=== PATIENT | male | born 2000 | race Hispanic/Latino ===

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

== ENCOUNTER 2021-03-18 19:45 | Emergency (ER) | payer OTHER, SELFPAY ==
--- OUTSIDE RECORDS SUMMARY | 2021-03-18 19:47 | XMS REPORT | Continuity of Care Document ---
:[address] [facility] t Address [address] [place] [address] Care Team Providers Name Role Phone Maria Ines Rosen Attending Clinician Problems This patient has no known problems. Allergies, Adverse Reactions, Alerts This patient has no known allergies or adverse reactions. Medications This patient has no known medications. Procedures This patient has no known procedures. Encounters Start End Encounter Admission Attending Care Care Encounter Source Date/Time Date/Time Type Type Clinicians Facility Department ID 2020-12-07 2020-12-07 Office LIO Solomon [id number] 14:15:47 14:45:47 Visit [employer] [id number] [place] [id number] [place] [address] [phone] Primary & 204 Specialty Care Results This patient has no known results.
[2021-03-18 21:15] LABS: SARS-COV-2 RT PCR NEGATIVE (NEGATIVE)
--- NOTE | 2021-03-18 22:15 | ER ---
Nurse's Notes [facility] Name: Kushal Tan Age: 20 yrs Sex: Male : 2000 Arrival Date: 03/18/2021 Time: 19:50 Bed 24 Private MD: Diagnosis: Acute upper respiratory infection, unspecified Presentation: 03/18 19:53 Chief complaint: Patient states: Diarrhea, cough, sore throat, runny nose for the past vg1 two days. Coronavirus screen: Client denies travel out of the [place] in the last 14 days. Client presents with at least one sign or symptom that may indicate coronavirus-19. Standard/surgical mask placed on the client. Ebola Screen: Patient negative for fever greater than or equal to 101.5 degrees Fahrenheit, and additional compatible Ebola Virus Disease symptoms. Initial Sepsis Screen: Does the patient meet any 2 criteria? No. Patient's initial sepsis screen is negative. Does the patient have a suspected source of infection? No. Patient's initial sepsis screen is negative. Risk Assessment: Do you want to hurt yourself or someone else? Patient reports no desire to harm self or others. Onset of symptoms was March 16, 2021. 19:53 Method Of Arrival: Ambulatory vg1 19:53 Acuity: MELO 4 vg1 Triage Assessment: 19:55 General: Appears in no apparent distress. uncomfortable, Behavior is calm, cooperative. vg1 Pain: Complains of pain in generalized body aches Pain currently is 8 out of 10 on a pain scale. Historical: - Allergies: 19:55 No Known Allergies; vg1 - Home Meds: 19:55 None [Active]; vg1 - PMHx: 19:55 None; vg1 - PSHx: 19:55 Appendectomy; vg1 - Immunization history:: Adult Immunizations up to date. - Social history:: Smoking status: Patient denies any tobacco usage or history of. Screenin:00 Abuse screen: Denies threats or abuse. Denies injuries from another. Nutritional rr5 screening: No deficits noted. Tuberculosis screening: No symptoms or risk factors identified. Fall Risk None identified. Total Tejada Fall Scale indicates No Risk (0-24 pts). Assessment: 19:57 Reassessment: Pt treated in triage. vg1 21:00 General: Appears in no apparent distress. comfortable, Behavior is calm, cooperative, rr5 appropriate for age, no complaints awaiting for result. Pain: Denies pain. Neuro: Level of Consciousness is awake, alert, obeys commands, Oriented to person, place, time. Cardiovascular: Capillary refill < 3 seconds Patient's skin is warm and dry. Respiratory: Reports cough that is runny nose Airway is patent Respiratory effort is even, unlabored, Respiratory pattern is regular, symmetrical. GI: Reports diarrhea. : No signs and/or symptoms were reported regarding the genitourinary system. EENT: No signs and/or symptoms were reported regarding the EENT system. Derm: Skin is intact, is healthy with good turgor, Skin temperature is warm. Musculoskeletal: Capillary refill < 3 seconds. 22:20 Reassessment: Patient appears in no apparent distress at this time. Patient is alert, rr5 oriented x 3, equal unlabored respirations, skin warm/dry/pink. discharge instruction given and explained without complaints made. Vital Signs: 19:53 BP 122 / 83; Pulse 86; Resp 18; Temp 99.2; Pulse Ox 98% on R/A; Weight 115.67 kg; vg1 Height 5 ft. 8 in. (172.72 cm); Pain 8/10; 21:00 BP 121 / 75; Pulse 80; Resp 16; Pulse Ox 98% ; rr5 22:00 BP 115 / 89; Pulse 86; Resp 17; Pulse Ox 98% ; rr5 19:53 Body Mass Index 38.77 (115.67 kg, 172.72 cm) vg1 ED Course: 19:50 Patient arrived in ED. mr 19:51 [facility] kb 19:51 Kip Grier MD is Attending Physician. kb 19:54 Triage completed. vg1 19:55 Arm band placed on Patient placed in waiting room, Patient notified of wait time. vg1 20:00 COVID swab sent to lab. Flu and/or RSV swab sent to lab. Strep swab sent to lab. vg1 20:33 Mario Baker RN is Primary Nurse. rr5 21:00 Patient has correct armband on for positive identification. Bed in low position. rr5 22:21 No provider procedures requiring assistance completed. Patient did not have IV access rr5 during this emergency room visit. Administered Medications: No medications were administered Outcome: 22:15 Discharge ordered by . harjinder 22:21 Discharged to home ambulatory. rr5 22:21 Condition: stable 22:21 Discharge instructions given to patient, Instructed on discharge instructions, follow up and referral plans. Demonstrated understanding of instructions, follow-up care. 22:22 Patient left the ED. rr5 Signatures: Rafia Fishman, KRISTY MAY-Majo Howard Raymond RN RN rr5 Andra Chaparro RN RN vg1
--- NOTE | 2021-03-18 22:16 | EDPHYS ---
Physician Documentation [facility] Name: Kushal Tan Age: 20 yrs Sex: Male : 2000 Arrival Date: 03/18/2021 Time: 19:50 Bed 24 Private MD: ED Physician Kip Grier HPI: 03/18 23:25 This 20 yrs old Male presents to ER via Ambulatory with complaints of Flu kb Symptoms. 23:25 The patient or guardian reports cough, flu symptoms. Onset: The symptoms/episode kb began/occurred 2 day(s) ago. Severity of symptoms: At their worst the symptoms were mild, moderate, in the emergency department the symptoms are unchanged. Modifying factors: The symptoms are alleviated by nothing, the symptoms are aggravated by nothing. Associated signs and symptoms: Pertinent positives: diarrhea, rhinorrhea, sore throat. The patient has not experienced similar symptoms in the past. The patient has not recently seen a physician. Pt reports cough, rhinorrhea, diarrhea and sore throat for 2 days. Son diagnosed with the flu and spouse with a URI. Historical: - Allergies: 19:55 No Known Allergies; vg1 - Home Meds: 19:55 None [Active]; vg1 - PMHx: 19:55 None; vg1 - PSHx: 19:55 Appendectomy; vg1 - Immunization history:: Adult Immunizations up to date. - Social history:: Smoking status: Patient denies any tobacco usage or history of. ROS: 23:26 Constitutional: Negative for fever, chills, and weight loss. kb 23:26 ENT: Positive for rhinorrhea, sinus congestion, sore throat. 23:26 Respiratory: Positive for cough, Negative for dyspnea on exertion, hemoptysis, orthopnea, pleurisy, shortness of breath, sputum production, wheezing. 23:26 Abdomen/GI: Positive for diarrhea, Negative for abdominal pain, nausea and vomiting. 23:26 All other systems are negative. Exam: 23:24 Constitutional: This is a well developed, well nourished patient who is awake, alert, kb and in no acute distress. Head/Face: Normocephalic, atraumatic. ENT: Moist Mucous membranes Cardiovascular: Regular rate and rhythm with a normal S1 and S2. No gallops, murmurs, or rubs. No pulse deficits. Respiratory: Respirations even and unlabored. No increased work of breathing, no retractions or nasal flaring. Skin: Warm, dry with normal turgor. Normal color. MS/ Extremity: Pulses equal, no cyanosis. Neurovascular intact. Full, normal range of motion. Neuro: Awake and alert, GCS 15, oriented to person, place, time, and situation. Moves all extremities. Normal gait. Psych: Awake, alert, with orientation to person, place and time. Behavior, mood, and affect are within normal limits. 23:24 ENT: Posterior pharynx: is normal. Vital Signs: 19:53 BP 122 / 83; Pulse 86; Resp 18; Temp 99.2; Pulse Ox 98% on R/A; Weight 115.67 kg; vg1 Height 5 ft. 8 in. (172.72 cm); Pain 8/10; 21:00 BP 121 / 75; Pulse 80; Resp 16; Pulse Ox 98% ; rr5 22:00 BP 115 / 89; Pulse 86; Resp 17; Pulse Ox 98% ; rr5 19:53 Body Mass Index 38.77 (115.67 kg, 172.72 cm) vg1 MDM: 19:54 Patient medically screened. kb 23:24 Data reviewed: vital signs, nurses notes. Data interpreted: Pulse oximetry: on room air kb is 98 %. Interpretation: normal. Counseling: I had a detailed discussion with the patient and/or guardian regarding: the historical points, exam findings, and any diagnostic results supporting the discharge/admit diagnosis, lab results, the need for outpatient follow up, a family practitioner, to return to the emergency department if symptoms worsen or persist or if there are any questions or concerns that arise at home. 03/18 19:54 Order name: Strep; Complete Time: 22:14 kb 03/18 21:15 Order name: COVID-19/FLU A+B; Complete Time: 21:19 EDMS 03/18 22:13 Order name: Throat Culture EDMS Administered Medications: No medications were administered Disposition: 03/19 04:14 Co-signature as Attending Physician, Kip Grier MD. mh7 Disposition: 03/18/21 22:15 Discharged to Home. Impression: Acute upper respiratory infection, unspecified. - Condition is Stable. - Discharge Instructions: Upper Respiratory Infection, Adult, [id number], Viral Respiratory Infection, [id number]. - Medication Reconciliation Form, Thank You Letter, Antibiotic Education, Prescription Opioid Use form. - Follow up: Emergency Department; When: As needed; Reason: Worsening of condition. Follow up: Private Physician; When: 2 - 3 days; Reason: Recheck today's complaints, Continuance of care, Re-evaluation by your physician. Signatures: Dispatcher [employer] [facility] Rafia Fishman, JEWELRY RACKER-C JEWELRY RACKER-Mario Reagan, RN RN rr5 Andra Chaparro RN RN vg1 Kip Grier MD MD mh7 Corrections: (The following items were deleted from the chart) 03/18 20:34 19:54 CORONAVIRUS+MR.LAB.BRZ ordered. [facility] 20:35 19:54 Influenza Screen (A \T\ B)+BA.LAB.BRZ ordered. [facility] 22:22 22:15 03/18/2021 22:15 Discharged to Home. Impression: Acute upper respiratory rr5 infection, unspecified. Condition is Stable. Forms are Medication Reconciliation Form, Thank You Letter, Antibiotic Education, Prescription Opioid Use. Follow up: Emergency Department; When: As needed; Reason: Worsening of condition. Follow up: Private Physician; When: 2 - 3 days; Reason: Recheck today's complaints, Continuance of care, Re-evaluation by your physician. kb
[2021-03-18 22:42] VITALS: TEMP 99.2; O2SAT 98
[2021-03-18 22:44] VITALS: BP 115/89
== END 2021-03-18 22:22 | disposition home or self-care (01) ==
LOC: ER 19:45
DX: J06.9 Acute upper respiratory infection, unspecified (principal); Z20.822 Contact with and (suspected) exposure to COVID-19
CPT/HCPCS: 0240U; 87070; 87081; 99283

== ENCOUNTER 2021-06-09 18:53 | Emergency (ER) | payer SELFPAY ==
--- OUTSIDE RECORDS SUMMARY | 2021-06-09 18:55 | XMS REPORT | Continuity of Care Document ---
:2000 Author Organization [facility] t Address [address] [place] [address] Care Team Providers Name Role Phone Maria [...] 2020-12-07 2020-12-07 Office LIO Solomon [id number] 14:15:47 14:45:47 Visit [facility] [id number] [place] [id number] [place] [address] [phone] Primary & 204 Specialty Care Results This patient has no known results.
--- NOTE | 2021-06-09 19:51 | ER ---
Nurse's Notes [facility] Name: Kushal Tan Age: 20 yrs Sex: Male : 2000 Arrival Date: 06/09/2021 Time: 18:56 Bed Waiting Private MD: Diagnosis: Presentation: 06/09 19:51 Note registration reports pt left ED. bb ED Course: 18:56 Patient arrived in ED. as Administered Medications: No medications were administered Outcome: 19:51 Patient left the ED. bb Signatures: Glory Mccartney Brenda, RN RN bb
== END 2021-06-09 19:51 | disposition left against medical advice (07) ==
LOC: ER 18:53
DX: Z02.9 Encounter for administrative examinations, unspecified (principal)

== ENCOUNTER 2022-04-13 12:57 | Emergency (ER) | payer SELFPAY ==
--- OUTSIDE RECORDS SUMMARY | 2022-04-13 13:01 | XMS REPORT | Continuity of Care Document ---
:2001 Author Organization [facility] t Address 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, A Attending Clinician LOYDA, A Attending Clinician Unavailable Doctor Unassigned, Name Attending Clinician Unavailable Chip Attending Clinician Anh MAY Attending Clinician Colleen DE LOS SANTOS S Attending Clinician Sulaiman DE LOS SANTOS Attending Clinician ANH Attending Clinician Unavailable Sulaiman DE LOS SANTOS Admitting Clinician Problems Condition Condition Condition Status Onset Resolution Last Treating Co mments Source Name Details Category Date Date Treatment Clinician Date Obesity Obesity Disease Active 2019- Univers (BMI (BMI 8-07 ity of 30-39.9) 30-39.9) 00:00: [place] 00 Medical Branch Acute Acute Disease Active 2019-0 Univers appendicit appendicit 8-06 it y of is, is, 00:00: [place] uncomplica uncomplica 00 Me dical seamus seamus Branch Allergies, Adverse Reactions, Alerts Allergy Allergy Status Severity Reaction(s) Onset Inactive Treating Comm ents Source Name Type Date Date Clinician NO KNOWN Drug Active Univers ALLERGIE Class ity of [facility] Social History Social Habit Start Date Stop Date Quantity Comments Source Sex Assigned At Universit y [facility] [place] [facility] Exposure to Not sure University of SARS-CoV-2 [facility] (event) Branch Tobacco use and 2020-12-07 2020-12-07 Current user Univers ity of exposure 00:00:00 00:00:00 [facility] Tobacco Comment 2020-06-04 2020-06-04 vapes daily, Univers ity of 00:00:00 00:00:00 smokless tobacco [facility] dical twice weekly per Branch patient report Smoking Status Start Date Stop Date Source Current every day smoker 2020-12-07 00:00:00 Uni versity [facility] Medications Ordered Filled Start Stop Current Ordering Indication Dosage Frequency Signature Comments Components Source Medication Medication Date Date Medication? Clinician (SIG) Name Name HYDROcodone 2020- No 1{tbl} 1 tablet, Univers -acetaminop 2-10 Oral, ity of hen (NORCO 05:15: 04:18 ONCE, 1 [place] 5) 5-325 mg 00 :00 dose, Tue Med ical tablet 1 12/07/20 at [place] tablet 2315, KIT ondansetron 2020- No 4mg 4 mg, Slow Univers (ZOFRAN 12-01-03 IV Push, ity of (PF)) 07:30: 06:35 ONCE, 1 [place] injection 4 00 :00 dose, Wed Med ical mg 12/01/20 at Branch 0130, KIT morpHINE 2020- No 4mg 4 mg, Slow Un evangelista injection 4 12-0103 IV Push, ity of mg 07:30: 06:35 ONCE, 1 [place] 00 :00 dose, Wed Medical 12/01/20 at Branch 0130, STAT ibuprofen Yes [id number] 800mg Take 1 Univers 800 mg 2-03 [id number] tablet by ity of tablet 00:00: mouth [place] 00 every 8 Medical (eight) Branch hours. ibuprofen Yes [id number] 800mg Take 1 Univers 800 mg 2-03 [id number] tablet by ity of tablet 00:00: mouth [place] 00 every 8 Medical (eight) Branch hours. ibuprofen Yes [id number] 800mg Take 1 Univers 800 mg 2-03 [id number] tablet by ity of tablet 00:00: mouth [place] 00 every 8 Medical (eight) Branch hours. ibuprofen 2020-0 Yes [id number] 800mg Take 1 Univers 800 mg 2-03 [id number] tablet by ity of tablet 00:00: mouth [place] 00 every 8 Medical (eight) Branch hours. morpHINE 2020-0 2020- No 4mg 4 mg, Slow Un evangelista injection 4 06-05-08 IV Push, ity of mg 10:49: 11:48 Q6HPRN, [place] 49 :49 Starting Medical 06/05/20 Branch at 0549, Until 06/05/20 at 0648, Routine, Pain (scale 7-10) morpHINE 2019-0 2020- No 4mg 4 mg, Slow Un evangelista injection 4 06-05-08 IV Push, ity of mg 04:46: 05:14 Q6HPRN, [place] 55 :00 Starting Medical 06/04/20 Branch at 2346, Until 06/05/20 at 0014, Routine, Pain (scale 7-10) HYDROmorpho 2019-0 2020- No .5mg 0.5 mg, Un evangelista ne 06-05- Slow IV ity of (DILAUDID) 01:00: 01:07 Push, [place] injection 00 :00 ONCE, 1 Medical 0.5 mg dose, Fri Branch 06/04/20 at 2000, Routine
Use approved by (Faculty): ADC PROVIDER simethicone 2019-0 Yes 80mg 80 mg, Univ ers (GAS RELIEF 808 Oral, ity of (SIMETHICON 00:53: Q6HPRN, [place] as E)) 45 Starting Medical chewable 06/04/20 Branc h tablet 80 at 1953, mg Until Discontinu ed, Routine, Gas HYDROcodone 2019-0 Yes [id number] 1{tbl} Take 1 Un evangelista -acetaminop 8-08 tablet by ity of hen 5-325 00:00: mouth [place] mg tablet 00 every 6 Medical (six) Branch hours as needed for Pain (scale 7-10). Indication s: acute pain ibuprofen 2019-0 Yes [id number] 600mg Take 1 U nivers 600 mg 8-08 tablet by ity of tablet 00:00: mouth [place] 00 every 6 Medical (six) Branch hours as needed for Pain (scale 4-6). HYDROcodone 2020-0 Yes [id number] 1{tbl} Take 1 Un evangelista -acetaminop 8-08 tablet by ity of hen 5-325 00:00: mouth [place] mg tablet 00 every 6 Medical (six) Branch hours as needed for Pain (scale 7-10). Indication s: acute pain ibuprofen 2020-0 Yes [id number] 600mg Take 1 U nivers 600 mg 8-08 tablet by ity of tablet 00:00: mouth [place] 00 every 6 Medical (six) Branch hours as needed for Pain (scale 4-6). HYDROcodone 2020-0 Yes 4647 1{tbl} Take 1 Un evangelista -acetaminop 8-08 tablet by ity of hen 5-325 00:00: mouth [place] mg tablet 00 every 6 Medical (six) Branch hours as needed for Pain (scale 7-10). Indication s: acute pain ibuprofen 2020-0 Yes [id number] 600mg Take 1 U nivers 600 mg 8-08 tablet by ity of tablet 00:00: mouth [place] 00 every 6 Medical (six) Branch hours as needed for Pain (scale 4-6). HYDROcodone 2020-0 Yes [id number] 1{tbl} Take 1 Un evangelista -acetaminop 8-08 tablet by ity of hen 5-325 00:00: mouth [place] mg tablet 00 every 6 Medical (six) Branch hours as needed for Pain (scale 7-10). Indication s: acute pain ibuprofen 2020-0 Yes [id number] 600mg Take 1 U nivers 600 mg 8-08 tablet by ity of tablet 00:00: mouth [place] 00 every 6 Medical (six) Branch hours as needed for Pain (scale 4-6). HYDROcodone 2020-0 Yes 4647 1{tbl} Take 1 Un evangelista -acetaminop 8-08 tablet by ity of hen 5-325 00:00: mouth [place] mg tablet 00 every 6 Medical (six) Branch hours as needed for Pain (scale 7-10). Indication s: acute pain ibuprofen 2020-0 Yes [id number] 600mg Take 1 U nivers 600 mg 8-08 tablet by ity of tablet 00:00: mouth [place] 00 every 6 Medical (six) Branch hours as needed for Pain (scale 4-6). HYDROcodone 2020-0 Yes 4647 1{tbl} Take 1 Un evangelista -acetaminop 8-08 tablet by ity of hen 5-325 00:00: mouth [place] mg tablet 00 every 6 Medical (six) Branch hours as needed for Pain (scale 7-10). Indication s: acute pain ibuprofen 2020-0 Yes [id number] 600mg Take 1 U nivers 600 mg 8-08 tablet by ity of tablet 00:00: mouth [place] 00 every 6 Medical (six) Branch hours as needed for Pain (scale 4-6). HYDROcodone 2020-0 Yes 4647 1{tbl} Take 1 Un evangelista -acetaminop 8-08 tablet by ity of hen 5-325 00:00: mouth [place] mg tablet 00 every 6 Medical (six) Branch hours as needed for Pain (scale 7-10). Indication s: acute pain ibuprofen 2020-0 Yes [id number] 600mg Take 1 U nivers 600 mg 8-08 tablet by ity of tablet 00:00: mouth [place] 00 every 6 Medical (six) Branch hours as needed for Pain (scale 4-6). HYDROcodone 2020-0 Yes 4647 1{tbl} Take 1 Un evangelista -acetaminop 8-08 tablet by ity of hen 5-325 00:00: mouth [place] mg tablet 00 every 6 Medical (six) Branch hours as needed for Pain (scale 7-10). Indication s: acute pain ibuprofen 2020-0 Yes [id number] 600mg Take 1 U nivers 600 mg 8-08 tablet by ity of tablet 00:00: mouth [place] 00 every 6 Medical (six) Branch hours as needed for Pain (scale 4-6). HYDROcodone 2020-0 Yes [id number] 1{tbl} Take 1 Un evangelista -acetaminop 8-08 tablet by ity of hen 5-325 00:00: mouth [place] mg tablet 00 every 6 Medical (six) Branch hours as needed for Pain (scale 7-10). Indication s: acute pain ibuprofen 2020-0 Yes [id number] 600mg Take 1 U nivers 600 mg 8-08 tablet by ity of tablet 00:00: mouth [place] 00 every 6 Medical (six) Branch hours as needed for Pain (scale 4-6). HYDROcodone 2020-0 2020- No 4647 1{tbl} Take 1 U nivers -acetaminop 8-08 08-08 tablet by it y of hen 5-325 00:00: 00:00 mouth [place] mg tablet 00 :00 every 6 Medical (six) Branch hours as needed for Pain (scale 7-10) for up to 7 days. Indication s: acute pain ibuprofen 2020-0 Yes 600mg 600 mg, Univ ers (IBU) 06-04 Oral, Q6H, ity of tablet 600 23:00: First dose [place] mg 00 on Fri Medical 06/04/20 at Branch 1800, Until Discontinu ed, Routine acetaminoph 2020-0 Yes 500mg 500 mg, Un evangelista en 07 Oral, Q6H, ity of (TYLENOL) 23:00: [place] tablet 500 00 on Sun Medical mg 06/04/20 at Branch 1800, Until Discontinu ed, Routine HYDROmorpho 2019-0 2020- No .2mg 0.2 mg, Un evangelista ne 06-04 Slow IV ity of (DILAUDID) 22:40: 22:59 Push, [place] injection 39 :26 Q5MIN PRN, Medi libra 0.2 mg 10 doses, Branch Starting Sun06/04/20 at 1740, Until Sun06/04/20 at 1759, Routine, Pain (scale 7-10), PACU
Us e approved by (Faculty): PACU USE -ANESTHESI A SERVICE-HY DROMORPHON E INJECTIONS FENTanyl PF 2020-0 2020- No 25ug 25 mcg, Un evangelista (SUBLIMAZE 06-04 Slow IV ity o f (PF)) 21:34: 21:54 Push, [place] injection 53 :00 Q5MIN PRN, Medi libra 25 mcg 4 doses, Branch Starting Sun06/04/20 at 1634, Until Sun06/04/20 at 1654, Routine, Pain (scale 7-10), PACU morpHINE 2020-0 2020- No 2mg 2 mg, Slow Un [place]ista injection 2 06-04 IV Push, ity of mg 21:15: 04:47 Q6HPRN, [place] 00 :16 Starting Medical 06/04/20 Branch at 1615, Until Sun06/04/20 at 2347, Routine, Pain (scale 7-10) traMADol 2019-0 Yes 100mg 100 mg, Unive rs (ULTRAM) 06-04 Oral, ity of tablet 100 21:03: Q6HPRN, [place] mg 48 Starting Medical Sun06/04/20 Branch at 1603, Until Discontinu ed, Routine, Pain (scale 4-6) traMADol 2020-0 Yes 50mg 50 mg, Univers (ULTRAM) 8 Oral, ity of tablet 50 21:03: Q6HPRN, [place] mg 36 Starting Medical Sun06/04/20 Branch at 1603, Until Discontinu ed, Routine, Pain (scale 1-3) piperacilli 2020-0 2020- No 3.375g 3.375 g, Univers n-tazobacta 06-04 0808 IV ity of m (ZOSYN) 10:00: 16:00 [place]back, [place] 3.375 g in 00 :21 Q6H ABX, Medic al NaCl 0.9% First dose Bran ch (NS) 100 mL (after MINI-BAG last reorder) on Sun06/04/20 at 0500, Until Discontinu ed, 100 mL
Reas on for Anti-Infec tive: Documented Infection< br>Documen seamus Infection Site: Abdominal< br>Duratio n of Therapy: 7 days NaCl 0.9% 0 2020- No 1000mL at 125 Uni vers (NS) IV 06-04 mL/hr, IV ity of infusion 05:45: 22:52 Infusion, [place] 1,000 mL 00 :44 CONTINUOUS Medic al , Starting Branch Sun06/04/20 at 0045, Until Sun06/04/20 at 1752, Routine ondansetron 2019-0 Yes 4mg 4 mg, Slow Univers (ZOFRAN 06-04 IV Push, ity of (PF)) 05:42: Q6HPRN, [place] injection 4 45 Starting Medi libra mg Sun06/04/20 Branch at 0042, Until Discontinu ed, Routine, Nausea and Vomiting (N/V) morpHINE 2019-0 2020- No 2mg 2 mg, Slow Un evangelista injection 2 06-04 08 IV Push, ity of mg 05:42: 21:04 Q4HPRN, [place] 41 :20 Starting Medical Sun06/04/20 Branch at 0042, Until Sun06/04/20 at 1604, Routine, Pain (scale 7-10) piperacilli 2019-0 2020- No 3.375g 3.375 g, Univers n-tazobacta 06-04 IV ity of m (ZOSYN) 04:15: 03:58 [place]back, [place] 3.375 g in 00 :00 ONCE, 1 Medica l NaCl 0.9% dose, [place] Branc h (NS) 100 mL 06/03/20 at MINI-BAG 2315, 100 mL
Reas on for Anti-Infec tive: Documented Infection< br>Documen seamus Infection Site: Abdominal< br>Duratio n of Therapy: 7 days iohexol 2019- 2020- No 120mL 120 mL, Unive rs (OMNIPAQUE 06-04 Intravenou it y of 350 02:45: 02:45 s, ONCE, 1 [place] BULK-150 00 :00 dose, [place] Medica l mL) 06/03/20 at Branch injection 214, 120 mL Routine NaCl 0.9% 2019- No 1000mL at 999 Uni vers (NS) bolus 06-04 mL/hr, ity of infusion 02:30: 04:26 1,000 mL, [place] as 1,000 mL 00 :00 IV Medical Infusion, [place] ONCE, 1 dose, [facility] 06/03/20 at 2130, KIT ondansetron 2019- No 4mg 4 mg, Slow Univers (ZOFRAN 06-04 IV Push, ity of (PF)) 02:30: 01:30 ONCE, 1 [place] injection 4 00 :00 dose, [place] Med ical mg 06/03/20 at Branch 2129, KIT morpHINE 2019- No 4mg 4 mg, Slow Un evangelista injection 4 06-04 IV Push, ity of mg 02:30: 01:30 ONCE, 1 [place] 00 :00 dose, [place] Medical 06/03/20 at Branch 2129, STAT famotidine 2019- No 20mg 20 mg, Univ ers (PEPCID 06-04 Slow IV ity of (PF)) 02:30: 01:30 Push, [place] injection 00 :00 ONCE, 1 Medical 20 mg dose, [place] Branch 06/03/20 at 2130, KIT Vital Signs Vital Name Observation Time Observation Value Comments Source Systolic blood 2020-12-08 05:40:00 126 mm[Hg] Univer sity of pressure [place] [facility] Diastolic blood 2020-12-08 05:40:00 88 mm[Hg] Unive rsity of pressure [place] [facility] Heart rate 2020-12-08 05:40:00 102 /min Universi ty of [place] [facility] Respiratory rate 2020-12-08 05:40:00 18 /min Univ ersity of [place] [facility] Oxygen saturation in 2020-12-08 05:40:00 99 /min University of Arterial blood by [facility] libra Pulse oximetry Branch Body temperature 2020-12-08 03:49:00 37.61 Marge Univ ersity of [place] [facility] Body weight 2020-12-08 03:49:00 108.863 kg Universi ty of [place] [facility] BMI 2020-12-08 03:49:00 37.59 kg/m2 Universi ty of [place] [facility] Systolic blood 2020-12-01 08:03:00 136 mm[Hg] Univer sity of pressure [place] [facility] Diastolic blood 2020-12-01 08:03:00 91 mm[Hg] Unive rsity of pressure [place] [facility] Heart rate 2020-12-01 08:03:00 93 /min Universi ty of [place] [facility] Respiratory rate 2020-12-01 08:03:00 18 /min Univ ersity of [place] [facility] Oxygen saturation in 2020-12-01 08:03:00 99 /min University of Arterial blood by [facility] libra Pulse oximetry Branch Body temperature 2020-12-01 05:32:00 37.28 Marge Univ ersity of [place] [facility] Body height 2020-12-01 05:32:00 170.2 cm Universi ty of [place] [facility] Body weight 2020-12-01 05:32:00 63.504 kg Universi ty [facility] [place] [facility] BMI 2020-12-01 05:32:00 21.93 kg/m2 Universi ty [facility] [place] [facility] Body temperature 2020-06-25 18:34:00 36.11 Marge Univ ersity of [place] [facility] Respiratory rate 2020-06-25 18:34:00 18 /min Univ ersity of [place] [facility] Body weight 2020-06-25 18:34:00 89.359 kg Universi ty [facility] [place] [facility] Systolic blood 2020-06-25 18:34:00 126 mm[Hg] Univer sity of pressure [facility] Diastolic blood 2020-06-25 18:34:00 81 mm[Hg] Unive rsity of [facility] Heart rate 2020-06-25 18:34:00 76 /min [facility] Systolic blood 2020-06-05 16:02:00 112 mm[Hg] Univer sity of [facility] Diastolic blood 2020-06-05 16:02:00 57 mm[Hg] [facility] Heart rate 2020-06-05 16:02:00 74 /min [facility] Body temperature 2020-06-05 16:02:00 36.61 Marge [facility] Respiratory rate 2020-06-05 16:02:00 20 /min [facility] Oxygen saturation in 2020-06-05 16:02:00 99 /min [facility] Arterial blood by [facility] Pulse oximetry [place] Body height 2020-06-04 14:46:00 170.2 cm [facility] Body weight 2020-06-04 14:46:00 90.5 kg [facility] BMI 2020-06-04 14:46:00 31.24 kg/m2 [facility] Procedures Procedure Date / Time Performing Clinician Source Performed US TESTICULAR TORSION 2020-12-08 05:07:54 Evelyn Che [facility] URINALYSIS 2020-12-08 04:18:00 Evelyn Che [facility] US TESTICULAR TORSION 2020-12-01 08:31:51 Isac Rodrigez [facility] HEPATIC FUNCTION PANEL 2020-12-01 06:34:00 Isac Rodrigez [facility] ([id number]) (ALB,T.PRO,BILI [facility] Branch T,BU/BC,ALT,AST,ALK PHOS) BASIC METABOLIC PANEL 2020-12-01 06:34:00 Isac Rodrigez [facility] (NA, K, CL, CO2, Medical Branch GLUCOSE, BUN, CREATININE, CA) CBC WITH DIFF 2020-12-01 06:34:00 Isac Rodrigez [facility] PROTHROMBIN TIME / INR 2020-12-01 06:34:00 Isac Rodrigez [facility] Medical [place] ACTIVATED PARTIAL 2020-12-01 06:34:00 Isac Rodrigez [facility] THRMPLAS PENNY Medical Branch COVID-19 (ID NOW RAPID 2020-12-01 06:34:00 Isac Rodrigez [facility] TESTING) Medical Branch URINALYSIS 2020-12-01 05:40:00 Isac Rodrigez [facility] NOTICE OF PRIVACY 2020-12-01 05:28:30 Doctor Unassigned, No [facility] PRACTICES Name Medical Branch CONSENT/REFUSAL FOR 2020-12-01 05:27:16 Doctor Unassigned, No [facility] Name Medical Branch CONSENT/REFUSAL FOR 2020-06-25 18:26:52 [facility] Unassigned, No [facility] Name Medical Branch BASIC METABOLIC PANEL 2020-06-05 11:05[facility] ([facility], K, CL, CO2, Medical Branch GLUCOSE, BUN, CREATININE, CA) CBC WITH DIFF 2020-06-05 11:05:00 [facility] [place] [facility] ABDOMEN PELVIS W 2020-06-04 02:39:28 [facility] Medical Branch COVID-19 (ID NOW RAPID 2020-06-04 02:28:00 [facility] TESTING) Medical Branch URINALYSIS 2020-06-04 01:23:[address] [facility] LIPASE 2020-06-04 01:22:00 [facility] HE[facility] PANEL 2020-06-04 01:22:00 [facility] ([id number]) (ALB,T.PRO,BILI Medical Branch T,BU/BC,ALT,AST,ALK PHOS) BASIC METABOLIC PANEL 2020-06-04 01:22:00 [facility] (NA, K, CL, CO2, Medical Branch GLUCOSE, BUN, CREATININE, CA) CBC WITH DIFF 2020-06-04 01:22:00 Jeffries, Macey [facility] NOTICE OF PRIVACY 2020-06-04 00:53:21 Doctor Unassigned, No [facility] Name Medical Branch CONSENT/REFUSAL FOR 2020-06-04 00:52:28 Doctor Unassigned, No [facility] DIAG[facility]REATMENT Name Medical Branch Encounters Start End Encounter Admission Attending Care Care Encounter Source Date/Time Date/Time Type Type Clinicians Facility Department ID 2021-08-27 Emergency [facility] [id number] Univers 22:41:01 ity of [facility] 2021-08-27 Emergency [facility] [id number] Univers 21:25:25 ity of [facility] 2020-12-07 2020-12-08 Emergency [facility] [id number] Univers 21:51:00 00:02:00 Evelyn Finley [id number] i ty [facility] [address] [place] [address] [id number] [facility] 084 Branch 2020-12-07 2020-12-07 [facility] [id number] 14:15:47 14:45:47 Visit fitaborate [id number] [place] [address] [place] [address] [phone] Primary & 204 Specialty Care 2020-12-07 2020-12-07 [facility] [id number] Univers 14:15:47 14:45:47 Visit fitaborate [id number] it y of [place] 4.[address] [place] [address] [phone] [facility] Primary & 204 Branch Specialty Care 2020-12-07 2020-12-07 Outpatient Yue CHICAS [facility] [id number] Univers 14:30:00 14:30:00 JACINTO [id number] ity [facility] 2020-12-07 2020-12-07 Outpatient Yue CHICAS [facility] [id number] Univers 14:30:00 14:30:00 JACINTO ity [facility] 2020-11-30 2020-12-01 Emergency [facility] [place] [facility] [id number] Univers 23:41:00 02:57:00 Isac Fin[place] [id number] i ty [place]2.686 [place] [phone] [place] [address] [place] 2020-07-01 2020-07-01 Outpatient R ANNA [facility] [id number] Univers 16:15:00 16:15:00 KAMILA hassany [facility] 2020-06-25 2020-06-25 Office [facility] [id number] Univers 14:04:13 14:04:13 Visit Deepthi Fin[place] [id number] ity [place] 4[place]2.686 [place] [phone] [address] 2020-06-25 2020-06-25 [facility] [id number] Univers 13:30:00 13:30:00 DEEPTHI hassany [facility] 2020-06-25 2020-06-25 Orders Doctor CLARE [id number] Univers 00:00:00 00:00:00 Only Unassigned, CANDICE [id number] ity of [place] [facility] 4.2.7.2.686 [place] [phone] [facility] 009 [place] 2020-06-07 2020-06-07 Transition Bertin Saunders [id number] Univers 00:00:00 00:00:00 of Care Demetria [place] [id number] [place]y [place] 4[place]2.686 [place] [id number] [facility] 403 Branch 2020-06-03 2020-06-05 Hospital Macey Jeffries [facility] 1.2.840. [id number] Univers 19:57:00 14:33:00 Encounter Enrico Macias [id number] 0 ity of [place] 4.2.7.2.686 [facility] [id number] [facility] 081 [place] 2020-06-03 2020-06-03 Emergency [facility] ERT [id number] Univers 19:57:00 19:57:00 MACEY null of [facility] Results Test Description Test Time Test Comments Results Result Sourc e Comments US TESTICULAR 2020-11-29 No evidence of Univer sity of TORSION 0 testicular torsion. [facility] 05:38:51 Normal spectral and Branc h color Dopplerfindings at both testicles. Left testicular microlithiasis. Simple 8 mm right epididymal head cyst. Nonspecific partially calcified 4 mm extratesticular nodularity adjacent tothe right testicle, likely benign. No suspicious testicular lesions. Preliminary Report Dictated by Resident: Heron Ireland MD., have reviewed this study and agree with the abovereport.US TESTICULAR TORSION HISTORY: left testicular pain Had US last week, was having right testicularpain, pain now worse . TECHNIQUE: Testicular ultrasound performed with grayscale, color, andspectral Doppler images obtained. COMPARISON: 12/01/2020 FINDINGS: RIGHT TESTICLE: Normal size, shape, and echotexture without a focal lesion.The right testicle measures 4.0 x 1.8 x 2.8 cm (10.6 mL). LEFT TESTICLE: Normal size, shape, and echotexture without a focal lesion.Microlithiasi s is redemonstrated. The left testicle measures 4.3 x 3.1 x2.7 cm (18.9 mL). A lobulated echogenic extratesticular nodularity adjacent to the righttestes on image #34 with posterior acoustic shadowing measures up to 4 mm,nonspecific but likely benign pathology. EPIDIDYMIDES: Unchanged 8 mm anechoic right epididymal head cyst. BLOOD FLOW: Bilateral arterial waveforms. The blood flow is grosslysymmetric. SCROTUM: No hydrocele. VARICOCELE: None. [facility], Radiant Results Inft User - 12/07/2020 11:40 PM CSTUS TESTICULAR TORSIONHISTORY: left testicular pain Had US last week, was having right testicularpain, pain now worse .TECHNIQUE: Testicular ultrasound performed with grayscale, color, andspectral Doppler images obtained.COMPARISON: 12/01/2020FINDINGS: RIGHT TESTICLE: Normal size, shape, and echotexture without a focal lesion.The right testicle measures 4.0 x 1.8 x 2.8 cm (10.6 mL). LEFT TESTICLE: Normal size, shape, and echotexture without a focal lesion.Microlithiasi s is redemonstrated. The left testicle measures 4.3 x 3.1 x2.7 cm (18.9 mL). A lobulated echogenic extratesticular nodularity adjacent to the righttestes on image #34 with posterior acoustic shadowing measures up to 4 mm,nonspecific but likely benign pathology. EPIDIDYMIDES: Unchanged 8 mm anechoic right epididymal head cyst.BLOOD FLOW: Bilateral arterial waveforms. The blood flow is grosslysymmetric.SCR OTUM: No hydrocele.VARICOCELE : None.IMPRESSIONNo evidence of testicular torsion. Normal spectral and color Dopplerfindings at both testicles. Left testicular microlithiasis.Simpl e 8 mm right epididymal head cyst.Nonspecific partially calcified 4 mm extratesticular nodularity adjacent tothe right testicle, likely benign. No suspicious testicular lesions.Preliminary Report Dictated by Resident: Heron Jackson MD., have reviewed this study and agree with the abovereport. URINALYSIS 2020-12-08 04:59:00 Test Item Value Reference Range Interpretation Comme nts APPEARANCE (test code = Hazy Clear A 2867746554) COLOR (test code = 0023417337) Yellow Yellow PH (test code = 8274585814) 4.8-8.0 SP GRAVITY (test code = 1.003-1.030 5083203883) GLU U QUAL (test code = Normal Normal 3899782766) BLOOD (test code = 0090639438) Negative Negative KETONES (test code = 8977407464) Negative Negative PROTEIN (test code = 2887-8) Negative Negative UROBILIN (test code = 8276093239) Normal Normal BILIRUBIN (test code = Negative Negative 3415658571) NITRITE (test code = 1575583267) Negative Negative LEUK MARVIN (test code = Negative Negative 3458259205) RBC/HPF (test code = 6356885636) See_Comment [Automated message] The system which ge nerated this result transmit seamus reference range: 0 - 3 HP F. The reference range was not used to interpret th is result as normal/abnormal . WBC/HPF (test code = 1528060797) See_Comment [Automated message] The system which ge nerated this result transmit seamus reference range: 0 - 5 HP F. The reference range was not used to interpret th is result as normal/abnormal . BACTERIA (test code = 3761292498) Few Negative A AMORPHOUS (test code = Few Rare HPF A 5349155595) Lab Interpretation (test code = Abnormal 61427-7) [facility]2020-12-01 06:59:00 Test Item Value Reference Range Interpretation Comments SARS-CoV-2 Rapid ID NOW Not Detected Not Detected (test code = 24030-6) LISA (test code = LISA) ID NOW COVID-19 Assay is an isothermal nucleic acid amplification test intended for the qualitative detection of nucleic acid from SARS-CoV-2 viral RNA in nasopharyngeal (HOT TOP LINER) specimens. It is used under Emergency Use Authorization (EUA) by FDA. The limit of detection (LOD) of the assay is 125 Genome Equivalents/mL. A positive result is indicative of the presence of SARS-CoV-2 RNA. ?Clinical correlation with patient history and other diagnostic information is necessary to determine patient infection status. A negative (Not Detected) result does not preclude SARS-CoV-2 infection. In patients with clinical symptoms and other tests that are consistent with SARS-CoV-2 infection, negative results should be treated as presumptive negative and a new specimen should be tested with alternative PCR molecular test. Invalid: Please collect a new specimen for repeat patient testing if clinically indicated. Lab Interpretation Normal (test code = 86921-7) [facility] Metabolic Panel (NA, K, CL, CO2, GLUCOSE, BUN, CREATININE, CA)2020-12-01 06:55:00 Test Item Value Reference Range Interpretation Comments NA (test code = 141 mmol/L 135-145 1217347521) K (test code = 4.2 mmol/L 3.5-5 2311918757) CL (test code = 104 mmol/L 98-108 2252026140) CO2 TOTAL (test code = 26 mmol/L 23-31 7633599564) AGAP (test code = 2-16 8993070165) BUN (test code = 11 mg/dL 7-23 1854515374) GLUCOSE (test code = 135 mg/dL 70-110 H 9939066153) CREATININE (test code = 0.53 mg/dL 0.6-1.25 L 4515011616) CALCIUM (test code = 9.5 mg/dL 8.6-10.6 0362100356) eGFR Calculation mL/min/1.73m2 (Non-) (test code = 6487211876) eGFR Calculation mL/min/1.73m2 () (test code = 9071392745) LISA (test code = LISA) Association of Glomerular Filtration Rate (GFR) and Staging of Kidney Disease* + --+ --+ ------+| GFR (mL/min/1.73 m2) ?| With Kidney Damage ?| ?Without Kidney Damage+ --------+ --------+ +| ?>90 ?| ?Stage one ?| ? Normal ?+ ---+ ---+ -------+| ?60-89 ?| ?Stage two ?| ? Decreased GFR ? + --+ --+ ------+| ?30-59 ?| ?Stage three ?| ? Stage three ? + --+ --+ ------+| ?15-29 ?| ?Stage four ? | ? Stage four ?+ ---+ ---+ -------+| ?<15 (or dialysis) ? ?| ?Stage five ? | ? Stage five ?+ ---+ ---+ -------+ *Each stage assumes the associated GFR level has been in effect for at least three months. ?Stages 1 to 5, with or without kidney disease, indicate chronic kidney disease. Notes: Determination of stages one and two (with eGFR >59mL/min/1.73 m2) requires estimation of kidney damage for at least three months as defined by structural or functional abnormalities of the kidney, manifested by either:Pathological abnormalities or Markers of kidney damage (including abnormalities in the composition of the blood or urine or abnormalities in imaging tests). Lab Interpretation Abnormal (test code = 81743-8) [facility] (ALB, T.PRO, BILI T, BU/BC, ALT, AST, ALK PHOS)2020-12-01 06:55:00 Test Item Value Reference Range Interpretation Comments TOTAL BILI (test code = 6950803370) 0.5 mg/dL 0.1-1.1 BILI UNCON (test code = 4511693706) 0.2 mg/dL 0.1-1.1 BILI CONJ (test code = 0004519585) 0.0 mg/dL 0-0.3 T PROTEIN (test code = 9778822531) 8.2 g/dL 6.3-8.2 ALBUMIN (test code = 0883001565) 4.8 g/dL 3.5-5 ALK PHOS (test code = 4387565314) 135 U/L 34-122 H ALTv (test code = 1742-6) 51 U/L 5-50 H AST(SGOT) (test code = 2598746558) 40 U/L 13-40 Lab Interpretation (test code = Abnormal 61824-4) [facility]eraPTT2021-02-[facility] 06:53:00 Test Item Value Reference Range Interpretation Comments APTT Patient (test See_Comment [Automat ed code = 3173-2) message] The system which generated this result transmitted reference range : 23 - 38 Seconds . The reference range was not used to interpr et this result as normal/abnormal . LISA (test code = LISA) The [facility] patient population mean normal value for aPTT is 30 seconds. Lab Interpretation Normal (test code = 91076-7) [facility] CenterProthrombin Time (PT) / [id number] 06:51:00 Test Item Value Reference Range Interpretation Comments PROTIME PATIENT (test See_Comment [Auto mated message] code = 5964-2) The system wh ich generated this result transmitted ref erence range: 12.0 - 1 4.7 Seconds. The re ference range was not u sed to interpret this result as normal/abnor mal. INR (test code = 6301-6) Nor mal INR <1.1; Warfarin Therap eutic range 2.0 to 3. 0 or 2.5 to 3.5, dep ending upon the indica tions. Lab Interpretation (test Normal code = 67667-1) [facility] CenterCBC with Jhwzwmyubhna1240-03-78 06:44:00 Test Item Value Reference Range Interpretation Comments WBC (test code = See_Comment [Automated 7090-2) message] The sy stem which generated this result transmitted reference range : 4.20 - 10.70 10*3/?L. The reference range was not used to interpret this result as normal/abnormal . RBC (test code = See_Comment [Automated 119-8) message] The sy stem which generated this result transmitted reference range : 4.26 - 5.52 10*6/?L. The reference range was not used to interpret this result as normal/abnormal . HGB (test code = 15.0 g/dL 12.2-16.4 718-7) HCT (test code = 44.6 % 38.4-49.3 4544-3) MCV (test code = 85.0 fL 81.7-95.6 787-2) MCH (test code = 28.6 pg 26.1-32.7 785-6) MCHC (test code = 33.6 g/dL 31.2-35 786-4) RDW-SD (test code = 37.9 fL 38.5-51.6 L 03969-9) RDW-CV (test code = 12.3 % 12.1-15.4 788-0) PLT (test code = See_Comment H [Automated 777-3) message] The sy stem which generated this result transmitted reference range : 150 - 328 10*3/ ?L. The reference r keshia was not used to interpret this result as normal/abnormal . MPV (test code = 8.9 fL 9.8-13 L 79475-0) NRBC/100 WBC (test See_Comment [Automat ed code = 8442298591) message] The system which generated this result transmitted reference range : 0.0 - 10.0 /100 WBCs. The refer ence range was not u sed to interpret th is result as normal/abnormal . NRBC x10^3 (test code <0.01 See_Comment [Auto mated = 9731469516) message] The s ystem which generated this result transmitted reference range : 10*3/?L. The reference range was not used to interpret this result as normal/abnormal . GRAN MAT (NEUT) % 53.1 % (test code = 770-8) IMM GRAN % (test code 0.50 % = 9886403951) LYMPH % (test code = 36.1 % 736-9) MONO % (test code = 7.6 % 5905-5) EOS % (test code = 2.3 % 713-8) BASO % (test code = 0.4 % 706-2) GRAN MAT x10^3(ANC) 4.14 10*3/uL 1.99-6.95 (test code = 5422802787) IMM GRAN x10^3 (test 0.04 10*3/uL 0-0.06 code = 0600889264) LYMPH x10^3 (test code 2.81 10*3/uL 1.09-3.23 = 731-0) MONO x10^3 (test code 0.59 10*3/uL 0.36-1.02 = 742-7) EOS x10^3 (test code = 0.18 10*3/uL 0.06-0.53 711-2) BASO x10^3 (test code 0.03 10*3/uL 0.01-0.09 = 704-7) Lab Interpretation Abnormal (test code = 40040-5) [facility] CenterURINALYSIS2021-02-03 06:30:00 Test Item Value Reference Range Interpretation Comments APPEARANCE (test code = Hazy Clear A 1130670291) COLOR (test code = Yellow Yellow 0493176002) PH (test code = 4.8-8.0 5190702225) SP GRAVITY (test code = 1.003-1.030 3847543849) GLU U QUAL (test code = Normal Normal 2331304414) BLOOD (test code = Negative Negative 4873709488) KETONES (test code = Negative Negative 1393355918) PROTEIN (test code = Negative Negative 2887-8) UROBILIN (test code = 2.0 mg/dL Normal A 3268085713) BILIRUBIN (test code = Negative Negative 1447887308) NITRITE (test code = Negative Negative 5347288005) LEUK MARVIN (test code = Negative Negative 2221430715) RBC/HPF (test code = See_Comment [Autom ated message] 6661758846) The system theAudience generated this result transmit seamus reference range : 0 - 3 HPF. The refe rence range was not u sed to interpret th is result as normal/abnormal . WBC/HPF (test code = See_Comment [Autom ated message] 9901375387) The system theAudience generated this result transmit seamus reference range : 0 - 5 HPF. The refe rence range was not u sed to interpret th is result as normal/abnormal . BACTERIA (test code = Negative Negative 7198939552) MUCOUS (test code = Slight Negative LPF A 8485205845) AMORPHOUS (test code = Rare Rare HPF 4235925731) Lab Interpretation (test Abnormal code = 40668-0) [facility] Metabolic Panel (NA, K, CL, CO2, GLUCOSE, BUN, CREATININE, CA)2020-06-05 12:37:00 Test Item Value Reference Range Interpretation Comments NA (test code = 136 mmol/L 135-145 9449394506) K (test code = 4.0 mmol/L 3.5-5 2126974308) CL (test code = 106 mmol/L 98-108 9082678249) CO2 TOTAL (test code = 23 mmol/L 23-31 3246273466) AGAP (test code = 2-16 8181182839) BUN (test code = 10 mg/dL 7-23 6346086442) GLUCOSE (test code = 122 mg/dL 70-110 H 6506715025) CREATININE (test code = 0.61 mg/dL 0.6-1.25 1651130925) CALCIUM (test code = 9.2 mg/dL 8.6-10.6 9148323133) eGFR Calculation mL/min/1.73m2 (Non-) (test code = 2122169092) eGFR Calculation mL/min/1.73m2 () (test code = 8299925811) LISA (test code = LISA) Association of Glomerular Filtration Rate (GFR) and Staging of Kidney Disease* + --+ --+ ------+| GFR (mL/min/1.73 m2) ?| With Kidney Damage ?| ?Without Kidney Damage+ --------+ --------+ +| ?>90 ?| ?Stage one ?| ? Normal ?+ ---+ ---+ -------+| ?60-89 ?| ?Stage two ?| ? Decreased GFR ? + --+ --+ ------+| ?30-59 ?| ?Stage three ?| ? Stage three ? + --+ --+ ------+| ?15-29 ?| ?Stage four ? | ? Stage four ?+ ---+ ---+ -------+| ?<15 (or dialysis) ? ?| ?Stage five ? | ? Stage five ?+ ---+ ---+ -------+ *Each stage assumes the associated GFR level has been in effect for at least three months. ?Stages 1 to 5, with or without kidney disease, indicate chronic kidney disease. Notes: Determination of stages one and two (with eGFR >59mL/min/1.73 m2) requires estimation of kidney damage for at least three months as defined by structural or functional abnormalities of the kidney, manifested by either:Pathological abnormalities or Markers of kidney damage (including abnormalities in the composition of the blood or urine or abnormalities in imaging tests). Lab Interpretation Abnormal (test code = 03327-7) [facility] with Tffwknikcmkr2067-23-30 12:27:00 Test Item Value Reference Range Interpretation Comments WBC (test code = See_Comment [Automated 3590-2) message] The system which generated this result transmit seamus reference range : 4.50 - 13.50 10*3/?L. The reference range was not used to interpret this result as normal/abnormal . RBC (test code = See_Comment [Automated 329-8) message] The system which generated this result transmit seamus reference range : 4.50 - 5.30 10*6/?L. The reference range was not used to interpret this result as normal/abnormal . HGB (test code = 14.2 g/dL 13-16 718-7) HCT (test code = 42.1 % 37-49 4544-3) MCV (test code = 85.9 fL 78-95 787-2) MCH (test code = 29.0 pg 26-32 785-6) MCHC (test code = 33.7 g/dL 32-36 786-4) RDW-SD (test code = 38.9 fL 38.5-49 68847-4) RDW-CV (test code = 12.4 % 11.5-14 788-0) PLT (test code = See_Comment [Automated 777-3) message] The system which generated this result transmit seamus reference range : 133 - 320 10*3/ ?L. The reference range was not u sed to interpret th is result as normal/abnormal . MPV (test code = 9.6 fL 9.3-12.9 82408-7) NRBC/100 WBC (test See_Comment [Automat ed code = 8007181486) message] The system which generated this result transmit seamus reference range : 0.0 - 10.0 /100 WBCs. The reference range was not used to interpret this result as normal/abnormal . NRBC x10^3 (test code <0.01 See_Comment [Auto mated = 2115901847) message] The system which generated this result transmit seamus reference range : 10*3/?L. The reference range was not used to interpret this result as normal/abnormal . GRAN MAT (NEUT) % 81.7 % (test code = 770-8) IMM GRAN % (test code 0.50 % = 0113866128) LYMPH % (test code = 11.6 % 736-9) MONO % (test code = 6.0 % 5905-5) EOS % (test code = 0.0 % 713-8) BASO % (test code = 0.2 % 706-2) GRAN MAT x10^3(ANC) 10.61 10*3/uL 1.5-10.3 H (test code = 8552703617) IMM GRAN x10^3 (test 0.06 10*3/uL 0-0.06 code = 9786743265) LYMPH x10^3 (test code 1.51 10*3/uL 0.7-7.4 = 731-0) MONO x10^3 (test code 0.78 10*3/uL 0-0.5 H = 742-7) EOS x10^3 (test code = <0.03 0-0.4 711-2) BASO x10^3 (test code <0.03 0-0.1 = 704-7) Lab Interpretation Abnormal (test code = 73875-1) [facility] CenterCT [facility] P[facility] W [id number] 04:43:28 1. ?Fluid-filled, thickened and mildly dilated appendix with minimaladjacent fat stranding, consistent with early acute appendicitis. Noevidence of perforation or organized collection identified. Findings were conveyed to Dr. Macias at 10:05 PM on 06/03/2020. Preliminary Report Dictated by Resident: Josephine Faulkner MD., have reviewed this study and agree with the abovereport. EXAM: CT ABDOMEN AND PELVIS WITH CONTRAST HISTORY: 19-year-old male complaints of right lower quadrant pain.COMPARISON: None. TECHNIQUE AND FINDINGS: Contiguous axial imaging from the level of the lungbases through the pubic symphysis was performed after the uncomplicatedadministration of 120 cc of intravenous Omnipaque contrast. Coronal andsagittal reconstructions were obtained. ?Auto mA and/or iterativereconstruction were used to reduce radiation dose. FINDINGS: LOWER THORAX: The lungs bases are clear. No cardiomegaly. LIVER: No focal hepatic lesions. ?Normal contour. GALLBLADDER AND BILIARY TREE: No biliary ductal dilation. The gallbladderis physiologically distended. No gallbladder wall thickening. SPLEEN: No splenomegaly. PANCREAS: No ductal dilation or masses. ADRENAL GLANDS: No adrenal nodules. KIDNEYS: No hydronephrosis, stones or masses are identified. PERITONEUM AND RETROPERITONEUM: No free air or fluid. LYMPH NODES: Scattered bilateral inguinal lymph nodes, measuring up to 1cm, possibly reactive. GI TRACT: The appendix is dilated up to 0.8 cm and is fluid-filled withthickened enhancing wall and minimal adjacent fat stranding. Noperiappendiceal free fluid, air or organized when compared No boweldilation or wall thickening. PELVIS/BLADDER: The bladder is decompressed. VESSELS: Unremarkable. BONES AND SOFT TISSUES: No suspicious lytic or sclerotic bony lesions. [facility], Radiant Results Inft User - 06/03/2020 11:44 PM CDTEXAM: CT ABDOMEN AND PELVIS WITH CONTRASTHISTORY: 19-year-old male complaints of right lower quadrant pain.COMPARISON: None.TECHNIQUE AND FINDINGS: Contiguous axial imaging from the level of the lungbases through the pubic symphysis was performed after the uncomplicatedadministration of 120 cc of intravenous Omnipaque contrast. Coronal andsagittal reconstructions were obtained. Auto mA and/or iterativereconstruction were used to reduce radiation dose.FINDINGS:LOWER THORAX: The lungs bases are clear. No cardiomegaly.LIVER: No focal hepatic lesions. Normal contour.GALLBLADDER AND BILIARY TREE: No biliary ductal dilation. The gallbladderis physiologically distended. No gallbladder wall thickening.SPLEEN: No splenomegaly.PANCREAS: No ductal dilation or masses.ADRENAL GLANDS: No adrenal nodules.KIDNEYS: No hydronephrosis, stones or masses are identified.PERITONEUM AND RETROPERITONEUM: No free air or fluid.LYMPH NODES: Scattered bilateral inguinal lymph nodes, measuring up to 1cm, possibly reactive.GI TRACT: The appendix is dilated up to 0.8 cm and is fluid-filled withthickened enhancing wall and minimal adjacent fat stranding. Noperiappendiceal free fluid, air or organized when compared No boweldilation or wall thickening.PELVIS/BLADDER: The bladder is decompressed.VESSELS: Unremarkable.BONES AND SOFT TISSUES: No suspicious lytic or sclerotic bony lesions.IMPRESSION1. Fluid-filled, thickened and mildly dilated appendix with minimaladjacent fat stranding, consistent with early acute appendicitis. Noevidence of perforation or organized collection identified.Findings were conveyed to Dr. Macias at 10:05 PM on 06/03/2020.Preliminary Report Dictated by Resident: Herber Manning, Josephine Egan MD., have reviewed this study and agree with the abovereport.[facility]OVID[facility] (ID NOW RAPID TESTING)2020-06-04 03:32:00 Test Item Value Reference Range Interpretation Comments SARS-CoV-2 Rapid ID NOW Not Detected Not Detected (test code = 01619-9) LISA (test code = LISA) ID NOW COVID-19 Assay is an isothermal nucleic acid amplification test intended for the qualitative detection of nucleic acid from SARS-CoV-2 viral RNA in nasopharyngeal (HOT TOP LINER) specimens. It is used under Emergency Use Authorization (EUA) by FDA. The limit of detection (LOD) of the assay is 125 Genome Equivalents/mL. A positive result is indicative of the presence of SARS-CoV-2 RNA. ?Clinical correlation with patient history and other diagnostic information is necessary to determine patient infection status. A negative (Not Detected) result does not preclude SARS-CoV-2 infection. In patients with clinical symptoms and other tests that are consistent with SARS-CoV-2 infection, negative results should be treated as presumptive negative and a new specimen should be tested with alternative PCR molecular test. Invalid: Please collect a new specimen for repeat patient testing if clinically indicated. Lab Interpretation Normal (test code = 28365-1) [facility] CenterLIPASE2020-08-07 03:27:00 Test Item Value Reference Range Interpretation Comments LIPASE (test code = 4182367371) 15 U/L 0-220 Lab Interpretation (test code = Normal 31674-5) [facility] CenterHepatic Function Panel (ALB, T.PRO, BILI T, BU/BC, ALT, AST, ALK PHOS)2020-06-04 02:34:00 Test Item Value Reference Range Interpretation Comments TOTAL BILI (test code = 9477047047) 0.7 mg/dL 0.1-1.1 BILI UNCON (test code = 3554227150) 0.8 mg/dL 0.1-1.1 BILI CONJ (test code = 5566749081) 0.0 mg/dL 0-0.3 T PROTEIN (test code = 4591901130) 8.8 g/dL 6.3-8.2 H ALBUMIN (test code = 5665335584) 5.2 g/dL 3.5-5 H ALK PHOS (test code = 5015330903) 91 U/L 34-122 ALTv (test code = 1742-6) 36 U/L 5-50 AST(SGOT) (test code = 9398637718) 30 U/L 13-40 Lab Interpretation (test code = Abnormal 77268-7) [facility] CenterUrinalysis2020-08-07 02:28:00 Test Item Value Reference Range Interpretation Comments APPEARANCE (test code = Clear Clear 1399032276) COLOR (test code = Yellow Yellow 8385174292) PH (test code = 4.8-8.0 9565058251) SP GRAVITY (test code = 1.003-1.030 H 7798411857) GLU U QUAL (test code = Normal Normal 1650868153) BLOOD (test code = Negative Negative 1006976097) KETONES (test code = 80 mg/dL Negative A 2896156127) PROTEIN (test code = 30 mg/dL Negative A 2887-8) UROBILIN (test code = Normal Normal 1750793333) BILIRUBIN (test code = Negative Negative 9525901265) NITRITE (test code = Negative Negative 1786028619) LEUK MARVIN (test code = Negative Negative 6689823939) RBC/HPF (test code = See_Comment [Autom ated message] 9946269104) The system theAudience generated this result transmitted ref erence range: 0 - 3 HP F. The reference range was not used to int erpret this result as normal/abnormal . WBC/HPF (test code = <1 See_Comment [Autom ated message] 2113874832) The system theAudience generated this result transmitted ref erence range: 0 - 5 HP F. The reference range was not used to int erpret this result as normal/abnormal . BACTERIA (test code = Negative Negative 0647843733) MUCOUS (test code = Moderate Negative LPF A 8616821524) HYAL CAST (test code = See_Comment [Aut omated message] 0428330297) The system theAudience generated this result transmitted ref erence range: <=2 LPF. The reference range was not used to int erpret this result as normal/abnormal . Lab Interpretation (test Abnormal code = 84940-8) [facility] Metabolic Panel (NA, K, CL, CO2, GLUCOSE, BUN, CREATININE, CA)2020-06-04 02:17:00 Test Item Value Reference Range Interpretation Comments NA (test code = 140 mmol/L 135-145 4766639597) K (test code = 3.9 mmol/L 3.5-5 8074730785) CL (test code = 102 mmol/L 98-108 6130638202) CO2 TOTAL (test code = 24 mmol/L 23-31 1248831163) AGAP (test code = 2-16 5774709224) BUN (test code = 13 mg/dL 7-23 2022183635) GLUCOSE (test code = 116 mg/dL 70-110 H 3277672942) CREATININE (test code = 0.68 mg/dL 0.6-1.25 4635719636) CALCIUM (test code = 9.9 mg/dL 8.6-10.6 6579324226) eGFR Calculation mL/min/1.73m2 (Non-) (test code = 2477312178) eGFR Calculation mL/min/1.73m2 () (test code = 4444783705) LISA (test code = LISA) Association of Glomerular Filtration Rate (GFR) and Staging of Kidney Disease* + --+ --+ ------+| GFR (mL/min/1.73 m2) ?| With Kidney Damage ?| ?Without Kidney Damage+ --------+ --------+ +| ?>90 ?| ?Stage one ?| ? Normal ?+ ---+ ---+ -------+| ?60-89 ?| ?Stage two ?| ? Decreased GFR ? + --+ --+ ------+| ?30-59 ?| ?Stage three ?| ? Stage three ? + --+ --+ ------+| ?15-29 ?| ?Stage four ? | ? Stage four ?+ ---+ ---+ -------+| ?<15 (or dialysis) ? ?| ?Stage five ? | ? Stage five ?+ ---+ ---+ -------+ *Each stage assumes the associated GFR level has been in effect for at least three months. ?Stages 1 to 5, with or without kidney disease, indicate chronic kidney disease. Notes: Determination of stages one and two (with eGFR >59mL/min/1.73 m2) requires estimation of kidney damage for at least three months as defined by structural or functional abnormalities of the kidney, manifested by either:Pathological abnormalities or Markers of kidney damage (including abnormalities in the composition of the blood or urine or abnormalities in imaging tests). Lab Interpretation Abnormal (test code = 30800-9) [facility] with Inhsmykhitay0054-40-95 01:41:00 Test Item Value Reference Range Interpretation Comments WBC (test code = See_Comment H [Automated 8378-2) message] The system which generated this result transmit seamus reference range : 4.50 - 13.50 10*3/?L. The reference range was not used to interpret this result as normal/abnormal . RBC (test code = See_Comment [Automated 311-8) message] The system which generated this result transmit seamus reference range : 4.50 - 5.30 10*6/?L. The reference range was not used to interpret this result as normal/abnormal . HGB (test code = 15.4 g/dL 13-16 718-7) HCT (test code = 44.8 % 37-49 4544-3) MCV (test code = 84.5 fL 78-95 787-2) MCH (test code = 29.1 pg 26-32 785-6) MCHC (test code = 34.4 g/dL 32-36 786-4) RDW-SD (test code = 37.9 fL 38.5-49 L 76240-0) RDW-CV (test code = 12.4 % 11.5-14 788-0) PLT (test code = See_Comment H [Automated 764-3) message] The system which generated this result transmit seamus reference range : 133 - 320 10*3/ ?L. The reference range was not u sed to interpret th is result as normal/abnormal . MPV (test code = 9.3 fL 9.3-12.9 25543-6) NRBC/100 WBC (test See_Comment [Automat ed code = 9421424552) message] The system which generated this result transmit seamus reference range : 0.0 - 10.0 /100 WBCs. The reference range was not used to interpret this result as normal/abnormal . NRBC x10^3 (test code <0.01 See_Comment [Auto mated = [id number]) message] The system which generated this result transmit seamus reference range : 10*3/?L. The reference range was not used to interpret this result as normal/abnormal . GRAN MAT (NEUT) % 85.5 % (test code = 770-8) IMM GRAN % (test code 0.50 % = [id number]) LYMPH % (test code = 7.9 % 736-9) MONO % (test code = 5.8 % 5905-5) EOS % (test code = 0.1 % 713-8) BASO % (test code = 0.2 % 706-2) GRAN MAT x10^3(ANC) 12.93 10*3/uL 1.5-10.3 H (test code = [id number]) IMM GRAN x10^3 (test 0.08 10*3/uL 0-0.06 H code = 4158802045) LYMPH x10^3 (test code 1.19 10*3/uL 0.7-7.4 = 731-0) MONO x10^3 (test code 0.87 10*3/uL 0-0.5 H = 742-7) EOS x10^3 (test code = <0.03 0-0.4 711-2) BASO x10^3 (test code 0.03 10*3/uL 0-0.1 = 704-7) Lab Interpretation Abnormal (test code = 56664-9) [facility]"
--- NOTE | 2022-04-13 14:36 | RAD REPORT ---
EXAM DESCRIPTION: RAD - Chest Single View - 04/13/2022 2:10 pm CLINICAL HISTORY: Congestion COMPARISON: Chest Pa And Lat (2 Views) dated 11/27/2018 FINDINGS: Lines: None. Lungs: No evidence of edema or pneumonia. Pleural: No significant pleural effusions or pneumothorax. Cardiac: The heart size is within normal limits. Bones: No acute fractures. Other: IMPRESSION: No acute cardiopulmonary disease.
--- NOTE | 2022-04-13 14:47 | ER ---
Nurse's Notes [facility] Name: Kushal Tan Age: 21 yrs Sex: Male : 2000 Arrival Date: 04/13/2022 Time: 12:58 Bed 11 Private MD: Diagnosis: Coronavirus infection, unspecified Presentation: 04/13 13:07 Chief complaint: Patient states: is having chest pains and SOB, started yesterday , + iw cough and congestion, last night felt sweaty. Coronavirus screen: Client presents with at least one sign or symptom that may indicate coronavirus-19. Ebola Screen: Patient negative for fever greater than or equal to 101.5 degrees Fahrenheit, and additional compatible Ebola Virus Disease symptoms Patient denies exposure to infectious person. Patient denies travel to an Ebola-affected area in the 21 days before illness onset. No symptoms or risks identified at this time. Initial Sepsis Screen: Does the patient meet any 2 criteria? No. Patient's initial sepsis screen is negative. Does the patient have a suspected source of infection? No. Patient's initial sepsis screen is negative. Risk Assessment: Do you want to hurt yourself or someone else? Patient reports no desire to harm self or others. Onset of symptoms was April 12, 2022. 13:07 Method Of Arrival: Ambulatory iw 13:08 Acuity: MELO 3 iw Triage Assessment: 15:00 General: Appears in no apparent distress. Behavior is calm, cooperative. Respiratory: iw Reports cough that is Onset: The symptoms/episode began/occurred yesterday, the patient has mild shortness of breath. Historical: - Allergies: 13:07 No Known Allergies; iw - Home Meds: 13:07 None [Active]; iw - PMHx: 13:07 None; iw - PSHx: 13:07 Appendectomy; iw - Immunization history:: Adult Immunizations unknown. - Social history:: Smoking status: Reported history of juuling and/or vaping. Screenin:00 Abuse screen: Denies threats or abuse. Denies injuries from another. Nutritional iw screening: No deficits noted. Tuberculosis screening: No symptoms or risk factors identified. Fall Risk None identified. Assessment: 15:10 Reassessment: Patient is alert, oriented x 3, equal unlabored respirations, skin aa5 warm/dry/pink. 15:10 Pain: Denies pain. Cardiovascular: Rhythm is regular. Respiratory: Airway is patent iw Respiratory effort is even, Breath sounds are clear bilaterally. Vital Signs: 13:08 Pulse 90; Resp 16; Temp 99.1; Pulse Ox 99% on R/A; iw ED Course: 12:58 Patient arrived in ED. as 12:59 [facility] kb 12:59 Zaire Blanco DO is Attending Physician. kb 13:08 Triage completed. iw 13:08 Arm band placed on. iw 13:50 Patient has correct armband on for positive identification. iw 13:54 Marga Martin, RN is Primary Nurse. iw 14:12 CXR XRAY In Process Unspecified. EDMS 15:10 No provider procedures requiring assistance completed. Patient did not have IV access aa5 during this emergency room visit. Administered Medications: No medications were administered Medication: 16:10 VIS not applicable for this client. iw Outcome: 14:47 Discharge ordered by MD. kb 15:10 Discharged to home ambulatory. aa5 15:10 Condition: good 15:10 Discharge instructions given to patient, Instructed on discharge instructions, follow up and referral plans. Demonstrated understanding of instructions, follow-up care. 15:12 Patient left the ED. iw Signatures: Dispatcher [employer] EDMS Rafia Fishman FNP-C FNP-Glory Aguila as Marga Martin, RN RN iw Lyn Sotelo, RN RN aa5 Corrections: (The following items were deleted from the chart) 13:08 13:07 PSHx: None; iw iw
--- NOTE | 2022-04-13 14:47 | EDPHYS ---
Physician Documentation [facility] Name: Kushal Tan Age: 21 yrs Sex: Male : 2000 Arrival Date: 04/13/2022 Time: 12:58 Bed 11 Private MD: ED Physician Zaire Blanco HPI: 04/13 14:08 This 21 yrs old Male presents to ER via Ambulatory with complaints of kb Shortness Of Breath, Chest Pressure. 14:08 The patient has shortness of breath at rest. Onset: The symptoms/episode began/occurred kb yesterday. Duration: The symptoms are continuous. The patient's shortness of breath has no apparent modifying factors. Associated signs and symptoms: Pertinent positives: chest pain, non-productive cough. Severity of symptoms: At their worst the symptoms were moderate in the emergency department the symptoms are unchanged. The patient has not experienced similar symptoms in the past. The patient has not recently seen a physician. Pt reports cough, congestion, chest pain and shortness of breath that started yesterday. Historical: - Allergies: 13:07 No Known Allergies; iw - Home Meds: 13:07 None [Active]; iw - PMHx: 13:07 None; iw - PSHx: 13:07 Appendectomy; iw - Immunization history:: Adult Immunizations unknown. - Social history:: Smoking status: Reported history of juuling and/or vaping. ROS: 14:06 Constitutional: Negative for fever, chills, and weight loss. kb 14:06 ENT: Positive for sinus congestion. 14:06 Cardiovascular: Positive for chest pain, Negative for edema, orthopnea, palpitations, paroxysmal nocturnal dyspnea. 14:06 Respiratory: Positive for cough, shortness of breath. 14:06 All other systems are negative. Exam: 14:05 Constitutional: This is a well developed, well nourished patient who is awake, alert, kb and in no acute distress. Head/Face: Normocephalic, atraumatic. ENT: Moist Mucous membranes Cardiovascular: Regular rate and rhythm with a normal S1 and S2. No gallops, murmurs, or rubs. No pulse deficits. Respiratory: Respirations even and unlabored. No increased work of breathing. Talking in full sentences Abdomen/GI: Soft, non-tender. No distention Skin: Warm, dry with normal turgor. Normal color. MS/ Extremity: Pulses equal, no cyanosis. Neurovascular intact. Full, normal range of motion. Neuro: Awake and alert, GCS 15, oriented to person, place, time, and situation. Moves all extremities. Normal gait. Psych: Awake, alert, with orientation to person, place and time. Behavior, mood, and affect are within normal limits. 14:05 ECG was reviewed by the Attending Physician. Vital Signs: 13:08 Pulse 90; Resp 16; Temp 99.1; Pulse Ox 99% on R/A; iw MDM: 13:10 Patient medically screened. kb 14:06 Data reviewed: vital signs, nurses notes. Data interpreted: Pulse oximetry: on room air kb is 99 %. Interpretation: normal. 14:20 Counseling: I had a detailed discussion with the patient and/or guardian regarding: the kb historical points, exam findings, and any diagnostic results supporting the discharge/admit diagnosis, lab results, radiology results, the need for outpatient follow up, a family practitioner, to return to the emergency department if symptoms worsen or persist or if there are any questions or concerns that arise at home. 04/13 13:09 Order name: Flu; Complete Time: 13:51 iw 04/13 13:09 Order name: SARS-COV-2 RT PCR (Document "Date of Onset" if Symptomatic); Complete Time: iw 14:20 04/13 13:16 Order name: EKG - Nurse/Tech; Complete Time: 14:05 zm 04/13 13:18 Order name: CXR XRAY; Complete Time: 14:39 iw EC:05 Rate is 79 beats/min. Rhythm is regular. QRS Perkins is Normal. NE interval is normal at kb 134 msec. QRS interval is normal at 82 msec. QT interval is normal at 394 msec. Administered Medications: No medications were administered Disposition: 19:53 Co-signature as Attending Physician, Zaire Blanco DO I was immediately available on-site ms3 in the Emergency Department for consultation in the care of the patient.. Disposition Summary: 04/13/22 14:47 Discharge Ordered Location: Home kb Condition: Stable kb Diagnosis - Coronavirus infection, unspecified kb Followup: kb - With: Emergency Department - When: As needed - Reason: Worsening of condition Followup: kb - With: Private Physician - When: 2 - 3 days - Reason: Recheck today's complaints, Continuance of care, Re-evaluation by your physician Discharge Instructions: - Discharge Summary Sheet kb - Viral Respiratory Infection, [id number] kb - COVID-19 kb Forms: - Medication Reconciliation Form kb - Thank You Letter kb - Antibiotic Education kb - Prescription Opioid Use kb - Work release form aa5 Signatures: Dispatcher [employer] EDRafia Miramontes, KRISTY MAY-Marga Figueroa RN RN iw Zaire Blanco DO DO ms3 Asia Mccartney Corrections: (The following items were deleted from the chart) 13:08 13:07 PSHx: None; iw iw
[2022-04-13 16:00] VITALS: TEMP 99.1; O2SAT 99
--- NOTE | 2022-04-15 08:58 | EKG ---
Test Date: 2022-04-13 Test Time: 13:58:11 Ship Cleaner: PAVEL MEASUREMENT RESULTS: Intervals: Rate: 79 MO: 134 QRSD: 82 QT: 344 QTc: 394 Barry: P: 1 MO: 134 QRS: 86 T: 50 INTERPRETIVE STATEMENTS: Normal sinus rhythm Normal ECG Compared to ECG 11/14/2015 05:04:30 ST (T wave) deviation no longer present Electronically Signed On 04-15-22 08:55:36 CDT by Markus Hernandez
== END 2022-04-13 15:12 | disposition home or self-care (01) ==
LOC: ER 12:57
DX: U07.1 COVID-19 (principal)
CPT/HCPCS: 71045; 87804; 93005; 99282; U0003

== ENCOUNTER 2022-04-18 10:48 | Emergency (ER) | payer SELFPAY ==
--- OUTSIDE RECORDS SUMMARY | 2022-04-18 10:59 | XMS REPORT | Continuity of Care Document ---
:2001 Author Organization [facility] t Address [address] [place] [place] [address] Care Team Providers Name Role Phone Evelyn Chaudhary Attending Clinician Neha VALLADARES Attending Clinician NEHA Attending Clinician Unavailable Elia DE LOS SANTOS Attending Clinician ANNA Attending Clinician Unavailable Loyda PROGRAM FACILITATOR, A Attending Clinician LOYDA, A Attending Clinician [...] Active Univers ALLERGIE Class ity of [facility] Social History Social Habit Start Date Stop Date Quantity Comments Source Sex Assigned At Universit y of [facility] Exposure to Not sure University of SARS-CoV-[address] [facility] (event) Branch Tobacco use and 2020-12-07 2020-12-07 Current user Univers ity of exposure 00:00:00 00:00:00 [facility] Tobacco Comment 2020-06-04 2020-06-04 vapes daily, Univers ity of 00:00:00 00:00:00 smokless tobacco [facility] dical twice weekly per Branch patient report Smoking Status Start Date Stop Date Source Current every day smoker 2020-12-07 00:00:00 Uni versity [facility] Medications Ordered Filled Start Stop Current Ordering Indication Dosage Frequency Signature Comments Components Source Medication Medication Date Date Medication? Clinician (SIG) Name Name HYDROcodone 2020- No 1{tbl} 1 tablet, Univers -acetaminop 2-10 Oral, ity of hen (NORCO 05:15: 04:18 ONCE, 1 [place] as 5) 5-325 mg 00 :00 dose, Tue Med ical tablet 1 12/07/20 at [place] tablet 2315, KIT ondansetron 2020- No 4mg [...] 12/01/20 at Branch 0130, STAT ibuprofen Yes [id number] 800mg Take 1 Univers 800 mg 2-03 [id number] tablet by ity of tablet 00:00: mouth [place] 00 every 8 Medical (eight) Branch hours. ibuprofen Yes [id number] 800mg Take 1 Univers 800 mg 2-03 [id number] tablet by ity of tablet 00:00: mouth [place] 00 every 8 Medical (eight) Branch hours. ibuprofen Yes [id number] 800mg Take 1 Univers 800 mg 2-03 [id number] tablet by ity of tablet 00:00: mouth [place] 00 every 8 Medical (eight) Branch hours. ibuprofen 2020-0 Yes [id number] 800mg Take 1 Univers 800 mg 2-03 [id number] tablet by ity of tablet 00:00: mouth [...] Indication s: acute pain ibuprofen 2019-0 Yes [id number] 600mg Take 1 U nivers 600 mg [...] Indication s: acute pain ibuprofen 2020-0 Yes [id number] 600mg Take 1 U nivers 600 mg [...] Indication s: acute pain ibuprofen 2020-0 Yes [id number] 600mg Take 1 U nivers 600 mg [...] Indication s: acute pain ibuprofen 2020-0 Yes [id number] 600mg Take 1 U nivers 600 mg [...] Indication s: acute pain ibuprofen 2020-0 Yes [id number] 600mg Take 1 U nivers 600 mg [...] Indication s: acute pain ibuprofen 2020-0 Yes [id number] 600mg Take 1 U nivers 600 mg [...] Indication s: acute pain ibuprofen 2020-0 Yes [id number] 600mg Take 1 U nivers 600 mg [...] Indication s: acute pain ibuprofen 2020-0 Yes [id number] 600mg Take 1 U nivers 600 mg [...] Indication s: acute pain ibuprofen 2020-0 Yes [id number] 600mg Take 1 U nivers 600 mg [...] IV ity of (DILAUDID) 22:40: 22:59 Push, [place] injection 39 :26 Q5MIN PRN, Medi libra [...] IV Push, ity of (PF)) 05:42: Q6HPRN, [place] injection 4 45 Starting Medi libra mg Sun06/04/20 Branch at 0042, Until Discontinu ed, Routine, Nausea and Vomiting (N/V) morpHINE 2019-0 2020- No 2mg 2 mg, Slow Un evangelista injection 2 06-04 08 IV Push, ity of mg 05:42: 21:04 Q4HPRN, [place] 41 :20 Starting Medical Sun06/04/20 Branch at [...] of 350 02:45: 02:45 s, ONCE, 1 [place] BULK-150 00 :00 dose, [facility] l mL) 06/03/20 at Branch injection 214, 120 mL Routine NaCl 0.9% 2019- No 1000mL at 999 Uni vers (NS) bolus 06-04 mL/hr, ity of infusion 02:30: 04:26 1,000 mL, [place] as 1,000 mL 00 :00 IV Medical Infusion, [place] ONCE, 1 dose, [facility] 06/03/20 at 2130, KIT ondansetron 2019- No 4mg 4 mg, Slow Univers (ZOFRAN 06-04 IV Push, ity of (PF)) 02:30: 01:30 ONCE, 1 [place] injection 4 00 :00 dose, [facility] Med ical mg 06/03/20 at Branch 2129, KIT morpHINE 2019- No 4mg 4 mg, Slow Un evangelista injection 4 06-04 IV Push, ity of mg 02:30: 01:30 ONCE, 1 [place] 00 :00 dose, [facility] 06/03/20 at [...] 05:40:00 126 mm[Hg] Univer sity of pressure [place] [facility] Diastolic blood 2020-12-08 05:40:00 88 mm[Hg] Unive rsity of pressure [place] [facility] Heart rate 2020-12-08 05:40:00 102 /min Universi ty of [place] [facility] Respiratory rate 2020-12-08 05:40:00 18 /min Univ ersity of [place] [facility] Oxygen saturation in 2020-12-08 05:40:00 99 /min University of Arterial blood by [facility] libra Pulse oximetry Branch Body temperature 2020-12-08 03:49:00 37.61 Marge Univ ersity of [place] [facility] Body weight 2020-12-08 03:49:00 108.863 kg Universi ty [facility] [place] [facility] BMI 2020-12-08 03:49:00 37.59 kg/m2 [facility] ty [facility] [place] [facility] Systolic blood 2020-12-01 08:03:00 136 mm[Hg] Univer sity of pressure [place] [facility] Diastolic blood 2020-12-01 08:03:00 91 mm[Hg] Unive rsity of pressure [place] [facility] Heart rate 2020-12-01 08:03:00 93 /min Universi ty [facility] [place] [facility] Respiratory rate 2020-12-01 08:03:00 18 /min Univ ersity of [place] [facility] Oxygen saturation in 2020-12-01 08:03:00 99 /min University of Arterial blood by [facility] libra Pulse oximetry Branch Body temperature 2020-12-01 05:32:00 37.28 Marge Univ ersity of [place] [facility] Body height 2020-12-01 05:32:00 170.2 cm Universi ty [facility] [place] [facility] Body weight 2020-12-01 05:32:00 63.504 kg [facility]i ty [facility] [place] [facility] BMI 2020-12-01 05:32:00 21.93 kg/m2 [facility] [place] [facility] Body temperature 2020-06-25 18:34:00 36.11 Marge Univ ersity [facility] [place] [facility] Respiratory rate 2020-06-25 18:34:00 18 /min Univ ersity of [place] [facility] Body weight 2020-06-25 18:34:00 89.359 kg Universi ty [facility] [place] [facility] Systolic blood 2020-06-25 18:34:00 126 mm[Hg] Univer sity of pressure [facility] Diastolic blood 2020-06-25 18:34:00 81 mm[Hg] Unive rsity of [facility] Heart rate 2020-06-25 18:34:00 76 /min [facility] Systolic blood 2020-06-05 16:02:00 112 mm[Hg] Univer sity of [facility] Diastolic blood 2020-06-05 16:02:00 57 mm[Hg] [facility] Heart rate 2020-06-05 16:02:00 74 /min [facility] Body temperature 2020-06-05 16:02:00 36.61 [facility] Respiratory rate 2020-06-05 16:02:00 20 /min [facility] Oxygen saturation in 2020-06-05 16:02:00 99 /min [facility] Arterial blood by [facility] Pulse oximetry [place] Body height 2020-06-04 14:46:[address] [facility] Body weight 2020-06-04 14:46:[address] [facility] BMI 2020-06-04 14:46:00 31.24 kg/m2 [facility] Procedures Procedure Date / Time Performing Clinician Source Performed US TESTICULAR TORSION 2020-12-08 05:07:54 Evelyn Che [facility] URINALYSIS 2020-12-08 04:18:00 Evelyn Che [facility] US TESTICULAR TORSION 2020-12-01 08:31:51 Isac Rodrigez [facility] HEPATIC FUNCTION PANEL 2020-12-01 06:34:00 Isac Rodrigez [facility] ([id number]) (ALB,T.PRO,BILI [facility] Branch T,BU/BC,ALT,AST,ALK PHOS) BASIC METABOLIC PANEL 2020-12-01 06:34:00 Isac Rodrigez [facility] (NA, K, CL, CO2, Medical Branch GLUCOSE, BUN, CREATININE, CA) CBC WITH DIFF 2020-12-01 06:34:00 Isac Rodrigez [facility] PROTHROMBIN TIME / INR 2020-12-01 06:34:00 Isac Rodrigez [facility] Medical [place] ACTIVATED PARTIAL 2020-12-01 06:34:00 Isac Rodrigez [facility] THRMPLAS PENNY Medical Branch COVID-19 (ID NOW RAPID 2020-12-01 06:34:00 Isac Rodrigez [facility] TESTING) Medical Branch URINALYSIS 2020-12-01 05:40:00 Isac Rodrigez [facility] NOTICE OF PRIVACY 2020-12-01 05:28:30 Doctor Unassigned, No [facility] PRACTICES Name Medical Branch CONSENT/REFUSAL FOR 2020-12-01 05:27:16 Doctor Unassigned, No [facility] Name Medical Branch CONSENT/REFUSAL FOR 2020-06-25 18:26:52 Doctor Unassigned, No [facility] Name Medical Branch BASIC METABOLIC PANEL 2020-06-05 11:05:00 [facility] ([facility], K, CL, CO2, Medical Branch GLUCOSE, BUN, CREATININE, CA) CBC WITH DIFF 2020-06-05 11:05:[address] [facility] [address] [facility]ELVIS W 2020-06-04 02:39:28 [facility] Medical Branch COVID-19 (ID NOW RAPID 2020-06-04 02:28:00 [facility] TESTING) Medical Branch URINALYSIS 2020-06-04 01:23:00 Anh [facility] LIPASE 2020-06-04 01:22:00 [facility] 2020-06-04 01:22:00 [facility] ([id number]) (ALB,T.PRO,BILI Medical Branch T,BU/BC,ALT,AST,ALK PHOS) BASIC METABOLIC PANEL 2020-06-04 01:22:00 [facility] (NA, K, CL, CO2, Medical Branch GLUCOSE, BUN, CREATININE, CA) CBC WITH DIFF 2020-06-04 01:22:00 Jeffries, Macey [facility] NOTICE OF PRIVACY 2020-06-04 00:53:21 Doctor Unassigned, No [facility] Name Medical Branch CONSENT/REFUSAL FOR 2020-06-04 00:52:28 Doctor Unassigned, No [facility]REATMENT Name Medical Branch Encounters Start End Encounter Admission Attending Care Care Encounter Source Date/Time Date/Time Type Type Clinicians Facility Department ID 2021-08-27 Emergency [facility] [id number] Univers 22:41:01 ity of [facility] 2021-08-27 Emergency [facility] [id number] Univers 21:25:25 ity of [facility] 2020-12-07 2020-12-08 Emergency [facility] [id number] Univers 21:51:00 00:02:00 Evelyn Finley [id number] i ty [facility] [address] [place] [address] [phone] [facility] 084 Branch 2020-12-07 2020-12-07 [facility] [id number] 14:15:47 14:45:47 Visit ECO-SAFE [id number] [place] [address] [place] [address] [id number] Primary & 204 Specialty Care 2020-12-07 2020-12-07 [facility] [id number] Univers 14:15:47 14:45:47 Visit ECO-SAFE [id number] it y of [place] 4.2.7.[address] [place] [address] [phone] [facility] Primary & 204 Branch Specialty Care 2020-12-07 2020-12-07 Outpatient Yue CHICAS [facility] [id number] Univers 14:30:00 14:30:00 JACINTO [id number] ity [facility] 2020-12-07 2020-12-07 Outpatient Yue CHICAS [facility] [id number] Univers 14:30:00 14:30:00 JACINTO ity [facility] 2020-11-30 2020-12-01 Emergency [facility] [id number] Univers 23:41:00 02:57:00 Isac Fin[place] [id number] i ty [place] [id number] [place] [address] [place] 2020-07-01 2020-07-01 Outpatient R ANNA [facility] [id number] Univers 16:15:00 16:15:00 KAMILA hassany [facility] 2020-06-25 2020-06-25 Office [facility] [id number] Univers 14:04:13 14:04:13 Visit Deepthi Finley 350.1.13.10 ity [place] [phone] Ne [address] 2020-06-25 2020-06-25 [facility] [id number] Univers 13:30:00 13:30:00 DEEPTHI hassany [facility] 2020-06-25 2020-06-25 Orders Doctor CLARE [id number] Univers 00:00:00 00:00:00 Only Unassigned, CANDICE [id number] [place] [facility] 4.2.7.2.686 [place] [phone] [facility] 009 [place] 2020-06-07 2020-06-07 Transition Bertin Saunders [id number] Univers 00:00:00 00:00:00 of Care Demetria [place] [id number] ity [place] [id number] [facility] 403 Branch 2020-06-03 2020-06-05 Hospital Macey Jeffries [facility] 1.2.840. [id number] Univers 19:57:00 14:33:00 Encounter Enrico Macias 350.1.13.1 0 ity of [place] 4.2.7.2.686 [facility] [id number] [facility] 081 [place] 2020-06-03 2020-06-03 Emergency [facility] ERT [id number] Univers 19:57:00 19:57:00 MACEY null of [facility] Results Test Description Test Time Test Comments Results Result Sourc e Comments US TESTICULAR 2020-11-29 No evidence of Univer sity of TORSION [address] [facility] 05:38:51 Normal spectral and Branc h [...] is grosslysymmetric. SCROTUM: No hydrocele. VARICOCELE: None. [facility], Radiant Results Inft User - 12/07/2020 11:40 [...] APPEARANCE (test code = Hazy Clear A 6820915301) COLOR (test code = 0736886009) Yellow Yellow PH (test code = 5440213279) 4.8-8.0 SP GRAVITY (test code = 1.003-1.030 8259266588) GLU U QUAL (test code = Normal Normal 3145793467) BLOOD (test code = 0208095484) Negative Negative KETONES (test code = 2927983173) Negative Negative PROTEIN (test code = 2887-8) Negative Negative UROBILIN (test code = 0588160881) Normal Normal BILIRUBIN (test code = Negative Negative 6898293150) NITRITE (test code = 3048027758) Negative Negative LEUK MARVIN (test code = Negative Negative 6870719918) RBC/HPF (test code = 6673749353) See_Comment [Automated message] The system which ge nerated this result transmit seamus reference range: 0 - 3 HP F. The reference range was not used to interpret th is result as normal/abnormal . WBC/HPF (test code = 7676853698) See_Comment [Automated message] The system which ge nerated this result transmit seamus reference range: 0 - 5 HP F. The reference range was not used to interpret th is result as normal/abnormal . BACTERIA (test code = 2488752202) Few Negative A AMORPHOUS (test code = Few Rare HPF A 8769602336) Lab Interpretation (test code = Abnormal 39944-7) [place] [facility]ID NOW RAPID TESTING)2020-12-01 06:59:00 Test Item Value Reference Range Interpretation Comments SARS-CoV-2 Rapid ID NOW Not Detected Not Detected (test code = 33823-3) LISA (test code = LISA) ID NOW COVID-19 Assay is an isothermal nucleic acid amplification test intended for the qualitative detection of nucleic acid from SARS-CoV-2 viral RNA in nasopharyngeal (INSURANCE ATTORNEY) specimens. It is used under Emergency Use [...] indicated. Lab Interpretation Normal (test code = 91144-2) [facility] Metabolic Panel (NA, K, CL, CO2, GLUCOSE, BUN, CREATININE, CA)2020-12-01 06:55:00 Test Item Value Reference Range Interpretation Comments NA (test code = 141 mmol/L 135-145 7843615420) K (test code = 4.2 mmol/L 3.5-5 4124132926) CL (test code = 104 mmol/L 98-108 3152182906) CO2 TOTAL (test code = 26 mmol/L 23-31 7419332851) AGAP (test code = 2-16 7963717222) BUN (test code = 11 mg/dL 7-23 7358899304) GLUCOSE (test code = 135 mg/dL 70-110 H 4993296129) CREATININE (test code = 0.53 mg/dL 0.6-1.25 L 7118302971) CALCIUM (test code = 9.5 mg/dL 8.6-10.6 7628475969) eGFR Calculation mL/min/1.73m2 (Non-) (test code = 2828931026) eGFR Calculation mL/min/1.73m2 () (test code = 1645152503) LISA (test code = LISA) Association of [...] tests). Lab Interpretation Abnormal (test code = 91906-4) [facility] (ALB, T.PRO, BILI T, BU/BC, ALT, AST, ALK PHOS)2020-12-01 06:55:00 Test Item Value Reference Range Interpretation Comments TOTAL BILI (test code = 3871131446) 0.5 mg/dL 0.1-1.1 BILI UNCON (test code = 8702405493) 0.2 mg/dL 0.1-1.1 BILI CONJ (test code = 4924738255) 0.0 mg/dL 0-0.3 T PROTEIN (test code = 9133466562) 8.2 g/dL 6.3-8.2 ALBUMIN (test code = 6790460170) 4.8 g/dL 3.5-5 ALK PHOS (test code = 1418152838) 135 U/L 34-122 H ALTv (test code = 1742-6) 51 U/L 5-50 H AST(SGOT) (test code = 3860212100) 40 U/L 13-40 Lab Interpretation (test code = Abnormal 13017-8) [place] [facility] 06:53:00 Test Item Value Reference Range Interpretation [...] seconds. Lab Interpretation Normal (test code = 45935-1) [facility]ano[facility]th[facility] Time (PT) / [id number] 06:51:00 Test Item Value Reference Range Interpretation [...] tions. Lab Interpretation (test Normal code = 36386-0) [facility]ano[facility] with [id number] 06:44:00 Test Item Value Reference Range Interpretation Comments WBC (test code = See_Comment [Automated 8790-2) message] The sy stem which generated this [...] (test code = 37.9 fL 38.5-51.6 L 18746-7) RDW-CV (test code = 12.3 % 12.1-15.4 788-0) PLT (test code = See_Comment H [Automated 777-3) message] The sy stem which generated this result transmitted reference range : 150 - 328 10*3/ ?L. The reference r keshia was not used to interpret this result as normal/abnormal . MPV (test code = 8.9 fL 9.8-13 L 20847-8) NRBC/100 WBC (test See_Comment [Automat ed code = 1457730882) message] The system which generated this result transmitted reference range : 0.0 - 10.0 /100 WBCs. The refer ence range was not u sed to interpret th is result as normal/abnormal . NRBC x10^3 (test code <0.01 See_Comment [Auto mated = 7028199110) message] The s ystem which generated this result transmitted reference range : 10*3/?L. The reference range was not used to interpret this result as normal/abnormal . GRAN MAT (NEUT) % 53.1 % (test code = 770-8) IMM GRAN % (test code 0.50 % = 5651118418) LYMPH % (test code = 36.1 % 736-9) MONO % (test code = 7.6 % 5905-5) EOS % (test code = 2.3 % 713-8) BASO % (test code = 0.4 % 706-2) GRAN MAT x10^3(ANC) 4.14 10*3/uL 1.99-6.95 (test code = 9796420966) IMM GRAN x10^3 (test 0.04 10*3/uL 0-0.06 code = 7826482279) LYMPH x10^3 (test code 2.81 10*3/uL 1.09-3.23 = 731-0) MONO x10^3 (test code 0.59 10*3/uL 0.36-1.02 = 742-7) EOS x10^3 (test code = 0.18 10*3/uL 0.06-0.53 711-2) BASO x10^3 (test code 0.03 10*3/uL 0.01-0.09 = 704-7) Lab Interpretation Abnormal (test code = 58407-3) [facility] 06:30:00 Test Item Value Reference Range Interpretation Comments APPEARANCE (test code = Hazy Clear A 5488278270) COLOR (test code = Yellow Yellow 1236453420) PH (test code = 4.8-8.0 9829140780) SP GRAVITY (test code = 1.003-1.030 1945982225) GLU U QUAL (test code = Normal Normal 1154414632) BLOOD (test code = Negative Negative 8285781496) KETONES (test code = Negative Negative 6821025162) PROTEIN (test code = Negative Negative 2887-8) UROBILIN (test code = 2.0 mg/dL Normal A 4638232024) BILIRUBIN (test code = Negative Negative 0446079050) NITRITE (test code = Negative Negative 1043788163) LEUK MARVIN (test code = Negative Negative 5674639369) RBC/HPF (test code = See_Comment [Autom ated message] 5537933926) The system My [employer] generated this result transmit seamus reference range : 0 - 3 HPF. The refe rence range was not u sed to interpret th is result as normal/abnormal . WBC/HPF (test code = See_Comment [Autom ated message] 7453399560) The system [employer] generated this result transmit seamus reference range : 0 - 5 HPF. The refe rence range was not u sed to interpret th is result as normal/abnormal . BACTERIA (test code = Negative Negative 3700476037) MUCOUS (test code = Slight Negative LPF A 7510309634) AMORPHOUS (test code = Rare Rare HPF 1859596554) Lab Interpretation (test Abnormal code = 27965-9) [facility] Metabolic Panel (NA, K, CL, CO2, GLUCOSE, BUN, CREATININE, CA)2020-06-05 12:37:00 Test Item Value Reference Range Interpretation Comments NA (test code = 136 mmol/L 135-145 4014754054) K (test code = 4.0 mmol/L 3.5-5 0300559728) CL (test code = 106 mmol/L 98-108 5253312182) CO2 TOTAL (test code = 23 mmol/L 23-31 8111536746) AGAP (test code = 2-16 9248100635) BUN (test code = 10 mg/dL 7-23 2700010987) GLUCOSE (test code = 122 mg/dL 70-110 H 8430096391) CREATININE (test code = 0.61 mg/dL 0.6-1.25 8167860064) CALCIUM (test code = 9.2 mg/dL 8.6-10.6 6333895233) eGFR Calculation mL/min/1.73m2 (Non-) (test code = 6684026009) eGFR Calculation mL/min/1.73m2 () (test code = 3664514224) LISA (test code = LISA) Association of [...] tests). Lab Interpretation Abnormal (test code = 58342-4) [facility] with [id number] 12:27:00 Test Item Value Reference Range Interpretation Comments WBC (test code = See_Comment [Automated 8190-2) message] The system which generated this result transmit seamus reference range : 4.50 - 13.50 10*3/?L. The reference range was not used to interpret this result as normal/abnormal . RBC (test code = See_Comment [Automated 359-8) message] The system which generated this result [...] RDW-SD (test code = 38.9 fL 38.5-49 51427-0) RDW-CV (test code = 12.4 % 11.5-14 788-0) PLT (test code = See_Comment [Automated 777-3) message] The system which generated this result transmit seamus reference range : 133 - 320 10*3/ ?L. The reference range was not u sed to interpret th is result as normal/abnormal . MPV (test code = 9.6 fL 9.3-12.9 75547-8) NRBC/100 WBC (test See_Comment [Automat ed code = 3177324741) message] The system which generated this result transmit seamus reference range : 0.0 - 10.0 /100 WBCs. The reference range was not used to interpret this result as normal/abnormal . NRBC x10^3 (test code <0.01 See_Comment [Auto mated = 9744846408) message] The system which generated this result transmit seamus reference range : 10*3/?L. The reference range was not used to interpret this result as normal/abnormal . GRAN MAT (NEUT) % 81.7 % (test code = 770-8) IMM GRAN % (test code 0.50 % = 8761229295) LYMPH % (test code = 11.6 % 736-9) MONO % (test code = 6.0 % 5905-5) EOS % (test code = 0.0 % 713-8) BASO % (test code = 0.2 % 706-2) GRAN MAT x10^3(ANC) 10.61 10*3/uL 1.5-10.3 H (test code = 8868613443) IMM GRAN x10^3 (test 0.06 10*3/uL 0-0.06 code = 6418189717) LYMPH x10^3 (test code 1.51 10*3/uL 0.7-7.4 = 731-0) MONO x10^3 (test code 0.78 10*3/uL 0-0.5 H = 742-7) EOS x10^3 (test code = <0.03 0-0.4 711-2) BASO x10^3 (test code <0.03 0-0.1 = 704-7) Lab Interpretation Abnormal (test code = 51074-3) [facility] PEL[facility] W [id number] 04:43:28 1. ?Fluid-filled, thickened and mildly dilated [...] reviewed this study and agree with the abovereport.[facility] (ID NOW RAPID TESTING)2020-06-04 03:32:00 Test Item Value Reference Range Interpretation Comments SARS-CoV-2 Rapid ID NOW Not Detected Not Detected (test code = 74975-8) LISA (test code = LISA) ID NOW COVID-19 Assay is an isothermal nucleic acid amplification test intended for the qualitative detection of nucleic acid from SARS-CoV-2 viral RNA in nasopharyngeal (INSURANCE ATTORNEY) specimens. It is used under Emergency Use [...] indicated. Lab Interpretation Normal (test code = 56909-4) [facility]2020-[facility]07 03:27:00 Test Item Value Reference Range Interpretation Comments LIPASE (test code = 6717071056) 15 U/L 0-220 Lab Interpretation (test code = Normal 40726-7) [facility] Function [facility] (ALB, T.PRO, BILI T, BU/BC, ALT, AST, ALK PHOS)2020-06-04 02:34:00 Test Item Value Reference Range Interpretation Comments TOTAL BILI (test code = 5380420150) 0.7 mg/dL 0.1-1.1 BILI UNCON (test code = 4404683835) 0.8 mg/dL 0.1-1.1 BILI CONJ (test code = 6860777599) 0.0 mg/dL 0-0.3 T PROTEIN (test code = 3126568112) 8.8 g/dL 6.3-8.2 H ALBUMIN (test code = 0456342250) 5.2 g/dL 3.5-5 H ALK PHOS (test code = 2523488884) 91 U/L 34-122 ALTv (test code = 1742-6) 36 U/L 5-50 AST(SGOT) (test code = 8923177296) 30 U/L 13-40 Lab Interpretation (test code = Abnormal 68336-3) [facility] Test Item Value Reference Range Interpretation Comments APPEARANCE (test code = Clear Clear 3334760634) COLOR (test code = Yellow Yellow 7392266406) PH (test code = 4.8-8.0 8629624054) SP GRAVITY (test code = 1.003-1.030 H 7701383881) GLU U QUAL (test code = Normal Normal 3550578023) BLOOD (test code = Negative Negative 7263385762) KETONES (test code = 80 mg/dL Negative A 2082501772) PROTEIN (test code = 30 mg/dL Negative A 2887-8) UROBILIN (test code = Normal Normal 0399717172) BILIRUBIN (test code = Negative Negative 3331315954) NITRITE (test code = Negative Negative 6039942571) LEUK MARVIN (test code = Negative Negative 2162188142) RBC/HPF (test code = See_Comment [Autom ated message] 3026418953) The system [employer] generated this result transmitted ref erence range: 0 - 3 HP F. The reference range was not used to int erpret this result as normal/abnormal . WBC/HPF (test code = <1 See_Comment [Autom ated message] 9324664686) The system [employer] generated this result transmitted ref erence range: 0 - 5 HP F. The reference range was not used to int erpret this result as normal/abnormal . BACTERIA (test code = Negative Negative 4567826396) MUCOUS (test code = Moderate Negative LPF A 2706175604) HYAL CAST (test code = See_Comment [Aut omated message] 8153635836) The system [employer] generated this result transmitted ref erence range: <=2 LPF. The reference range was not used to int erpret this result as normal/abnormal . Lab Interpretation (test Abnormal code = 86906-4) [facility] Metabolic Panel (NA, K, CL, CO2, GLUCOSE, BUN, CREATININE, CA)2020-06-04 02:17:00 Test Item Value Reference Range Interpretation Comments NA (test code = 140 mmol/L 135-145 9511597845) K (test code = 3.9 mmol/L 3.5-5 2832926914) CL (test code = 102 mmol/L 98-108 9268048250) CO2 TOTAL (test code = 24 mmol/L 23-31 5107443308) AGAP (test code = 2-16 2591015182) BUN (test code = 13 mg/dL 7-23 0099232978) GLUCOSE (test code = 116 mg/dL 70-110 H 5713385553) CREATININE (test code = 0.68 mg/dL 0.6-1.25 3882616876) CALCIUM (test code = 9.9 mg/dL 8.6-10.6 8240890894) eGFR Calculation mL/min/1.73m2 (Non-) (test code = 3542009468) eGFR Calculation mL/min/1.73m2 () (test code = 4920133164) LISA (test code = LISA) Association of [...] tests). Lab Interpretation Abnormal (test code = 79094-3) [facility] with Lzpioroozesf7539-13-18 01:41:00 Test Item Value Reference Range Interpretation Comments WBC (test code = See_Comment H [Automated 6416-2) message] The system which generated this result transmit seamus reference range : 4.50 - 13.50 10*3/?L. The reference range was not used to interpret this result as normal/abnormal . RBC (test code = See_Comment [Automated 043-8) message] The system which generated this result [...] (test code = 37.9 fL 38.5-49 L 22359-0) RDW-CV (test code = 12.4 % 11.5-14 788-0) PLT (test code = See_Comment H [Automated 498-3) message] The system which generated this result transmit seamus reference range : 133 - 320 10*3/ ?L. The reference range was not u sed to interpret th is result as normal/abnormal . MPV (test code = 9.3 fL 9.3-12.9 51599-7) NRBC/100 WBC (test See_Comment [Automat ed code = 0585333513) message] The system which generated this result transmit seamus reference range : 0.0 - 10.0 /100 WBCs. The reference range was not used to interpret this result as normal/abnormal . NRBC x10^3 (test code <0.01 See_Comment [Auto mated = 5176387604) message] The system which generated this result transmit seamus reference range : 10*3/?L. The reference range was not used to interpret this result as normal/abnormal . GRAN MAT (NEUT) % 85.5 % (test code = 770-8) IMM GRAN % (test code 0.50 % = 1765741264) LYMPH % (test code = 7.9 % 736-9) MONO % (test code = 5.8 % 5905-5) EOS % (test code = 0.1 % 713-8) BASO % (test code = 0.2 % 706-2) GRAN MAT x10^3(ANC) 12.93 10*3/uL 1.5-10.3 H (test code = 9252399123) IMM GRAN x10^3 (test 0.08 10*3/uL 0-0.06 H code = 8996408697) LYMPH x10^3 (test code 1.19 10*3/uL 0.7-7.4 = 731-0) MONO x10^3 (test code 0.87 10*3/uL 0-0.5 H = 742-7) EOS x10^3 (test code = <0.03 0-0.4 711-2) BASO x10^3 (test code 0.03 10*3/uL 0-0.1 = 704-7) Lab Interpretation Abnormal (test code = 98329-7) [facility]"
--- NOTE | 2022-04-18 13:05 | ER ---
Nurse's Notes [facility] Name: Kushal Tan Age: 21 yrs Sex: Male : 2000 Arrival Date: 04/18/2022 Time: 10:56 Bed 11 Private MD: Diagnosis: History of COVID-19 Presentation: 04/18 11:04 Chief complaint: Patient states: tested Covid positive on 04/13/22 has been coughing x vg1 5 days and needs to be tested for Covid in order to return to work. Coronavirus screen: Vaccine status: Patient reports being unvaccinated. Client denies travel out of the [place] in the last 14 days. Ebola Screen: Patient denies exposure to infectious person. Initial Sepsis Screen: Does the patient meet any 2 criteria? No. Patient's initial sepsis screen is negative. Does the patient have a suspected source of infection? No. Patient's initial sepsis screen is negative. Risk Assessment: Do you want to hurt yourself or someone else? Patient reports no desire to harm self or others. Onset of symptoms was April 13, 2022. 11:04 Method Of Arrival: Ambulatory vg1 11:04 Acuity: MELO 4 vg1 Triage Assessment: 11:05 General: Appears comfortable, Behavior is calm, cooperative. Pain: Denies pain. vg1 Respiratory: Reports cough that is Airway is patent Respiratory effort is even, unlabored. Historical: - Allergies: 11:05 No Known Allergies; vg1 - Home Meds: 11:05 None [Active]; vg1 - PMHx: 11:05 None; vg1 - PSHx: 11:05 Appendectomy; vg1 - Immunization history:: Client reports having NOT received the Covid vaccine. - Social history:: Smoking status: Reported history of juuling and/or vaping. Assessment: 12:49 Reassessment: Patient appears in no apparent distress at this time. No changes from vg1 previously documented assessment. Patient and/or family updated on plan of care and expected duration. Pain level reassessed. Patient is alert, oriented x 3, equal unlabored respirations, skin warm/dry/pink. Vital Signs: 11:04 BP 127 / 71; Pulse 83; Resp 16; Temp 98.6(TE); Pulse Ox 100% ; Weight 90.72 kg; Height vg1 5 ft. 7 in. (170.18 cm); Pain 0/10; 11:04 Body Mass Index 31.32 (90.72 kg, 170.18 cm) vg1 ED Course: 10:56 Patient arrived in ED. am2 11:05 Triage completed. vg1 11:05 Arm band placed on. vg1 11:06 [facility] jh7 11:06 Rafael Carr MD is Attending Physician. jh7 11:08 COVID swab sent to lab. vg1 13:48 Marga Martin, RN is Primary Nurse. iw Administered Medications: No medications were administered Outcome: 13:04 Discharge ordered by . 7 13:48 Patient left the ED. iw Signatures: Marga Martin, RN RN iw Loraine Sheriff 2 Andra Chaparro RN RN 1 Eugenia Aguirre FNP FINANCIAL AID OFFICER [facility] Corrections: (The following items were deleted from the chart) 11:08 11:04 Chief complaint: Patient states: has been coughing x 5 days and needs to be vg1 tested for Covid in order to return to work. vg1
--- NOTE | 2022-04-18 13:05 | EDPHYS ---
Physician Documentation [facility] Name: Kushal Tan Age: 21 yrs Sex: Male : 2000 Arrival Date: 04/18/2022 Time: 10:56 Bed 11 Private MD: Rafael Salinas Historical: - Allergies: 04/18 11:05 No Known Allergies; vg1 - Home Meds: 11:05 None [Active]; vg1 - PMHx: 11:05 None; vg1 - PSHx: 11:05 Appendectomy; vg1 - Immunization history:: Client reports having NOT received the Covid vaccine. - Social history:: Smoking status: Reported history of juuling and/or vaping. Vital Signs: 11:04 BP 127 / 71; Pulse 83; Resp 16; Temp 98.6(TE); Pulse Ox 100% ; Weight 90.72 kg; Height vg1 5 ft. 7 in. (170.18 cm); Pain 0/10; 11:04 Body Mass Index 31.32 (90.72 kg, 170.18 cm) vg1 MDM: 11:29 Patient medically screened. [facility] 04/18 11:06 Order name: SARS-COV-2 RT PCR (Document "Date of Onset" if Symptomatic) vg1 Administered Medications: No medications were administered Disposition Summary: 04/18/22 13:04 Discharge Ordered Location: Home [facility] Problem: new [facility] Symptoms: have improved [facility] Condition: Stable [facility] Diagnosis - History of COVID-19 [facility] Followup: [facility] - With: Private Physician - When: 2 - 3 days - Reason: Recheck today's complaints Discharge Instructions: - Discharge Summary Sheet [facility] - COVID-19 7 - COVID-19 Frequently Asked Questions [facility] - COVID-19: Quarantine vs. Isolation - [place] [address] Forms: - Medication Reconciliation Form 7 - Work release form iw - Thank You Letter [facility] Signatures: Dispatcher [employer] Rafael Serna MD MD cha Garcia, Victoria, RN RN vg1 Eugenia Aguirre, PETROL TANKER DRIVER [employer] TANKER DRIVER [facility]
[2022-04-18 13:52] VITALS: BP 127/71; TEMP 98.6; O2SAT 100
== END 2022-04-18 13:48 | disposition home or self-care (01) ==
LOC: ER 10:48
DX: U07.1 COVID-19 (principal)
CPT/HCPCS: U0003

== ENCOUNTER 2022-07-29 13:13 | Emergency (ER) | payer SELFPAY ==
--- OUTSIDE RECORDS SUMMARY | 2022-07-29 13:17 | XMS REPORT | Continuity of Care Document ---
:2000 Author Organization [facility] t Address [address] [place] [address] Care Team Providers Name Role Phone Pcp, Patient Does Not Have A Primary Care Physician [id number] KT MACIAS Attending Clinician Unavailable Kt Macias MD Attending Clinician Doctor Unassigned, [place] Attending Clinician Unavailable Evelyn Chaudhary Attending Clinician Maria Ines Rosen Attending Clinician MARIA INES CHICAS Attending Clinician Unavailable Isac Rodrigez MD Attending Clinician KAMILA CASTILLO Attending Clinician Unavailable Deepthi Jenkins Attending Clinician DEEPTHI SCALES Attending Clinician Unavailable Demetria Saunders Attending Clinician Macey Mena Attending Clinician Carol Hilario MD Attending Clinician MACEY KAMARA Attending Clinician Unavailable Carol Hilario MD Admitting Clinician Problems Condition Condition Condition Status Onset Resolution Last Treating Co mments Source Name Details Category Date Date Treatment Clinician Date Obesity Obesity Disease Active 2020-0 Univers (BMI (BMI 8-07 ity of 30-39.9) 30-39.9) 00:00: [place] 00 [facility] Acute Acute Disease Active 2019-0 [facility] appendicit appendicit 806 it y of is, is, 00:00: [place] uncomplica uncomplica [address] [place] Allergies, Adverse Reactions, Alerts Allergy Allergy Status Severity Reaction(s) Onset Inactive Treating Comm ents Source Name Type Date Date Clinician NO KNOWN Drug Active [facility] ALLERGIE Class ity of S [facility] [place] [facility] Social History Social Habit Start Date Stop Date Quantity Comments Source History of Smokes tobacco University of tobacco use daily [facility] [place] [facility] Exposure to 2022-07-18 2022-07-28 Not sure [facility] SARS-CoV-2 00:00:00 20:20:00 [facility] (event) [place] Tobacco use and 2020-06-04 2020-06-04 User of smokeless Un iversity of exposure 00:00:00 00:00:00 tobacco [facility] [place] [facility] Tobacco Comment 2020-06-04 2020-06-04 vapes daily, Univers ity of 00:00:00 00:00:00 smokless tobacco [facility] dical twice weekly per Branch patient report Sex Assigned At [birth year] Universit y of 00:00:00 00:00:00 [facility] [place] [facility] Smoking Status Start Date Stop Date Source Smokes tobacco daily 2020-06-04 00:00:00 [facility] ity [facility] Medications Ordered Filled Start Stop Current Ordering Indication Dosage Frequency Signature Comments Components Source Medication Medication Date Date Medication? Clinician (SIG) Name Name ketorolac 2021-10 30mg 30 mg, Unive rs (TORADOL) 0- 10-01 Slow IV ity of injection 03:00: 02:02 Push, [place] 30 mg 00 :00 ONCE, 1 Medical dose, On Branch Sun07/28/22 at 2200, Routine sodium 2021-10 Yes 5mL 5 mL, Univers chloride 0-01 Intravenou ity o f (NS) 01:25: s, PRN, [place] injection 5 01 Starting Medi libra mL on Sun Branch 07/28/22 at 2024, Until Discontinu ed, Routine, IV line flushing naproxen Yes [id number] 550mg Take 1 U nivers sodium 550 9-30 tablet by ity of mg tablet 00:00: mouth in the Medical morning Branch and 1 tablet in the evening. Take with meals. HYDROcodone 2020-0 202- No 1{tbl} 1 tablet, Univers -acetaminop 2-10 Oral, ity of hen (NORCO 05:15: 04:18 ONCE, 1 [place] 5) 5-325 mg 00 :00 dose, Tue Med ical tablet 1 12/07/20 at [place] tablet 2315, KIT ondansetron 2020-0 2020- No 4mg 4 mg, Slow Univers (ZOFRAN 12-01 IV Push, ity of (PF)) 07:30: 06:35 ONCE, 1 [place] injection 4 00 :00 dose, Wed Med ical mg 12/01/20 at Branch 0130, IKT morpHINE 2020-0 2020- No 4mg 4 mg, Slow Un evangelista injection 4 12-01- IV Push, ity of mg 07:30: 06:35 ONCE, 1 [place] 00 :00 dose, Wed Medical 12/01/20 at Branch 0130, STAT ibuprofen 2020-0 Yes [id number] 800mg Take 1 Univers 800 mg 2-03 [id number] tablet by ity of tablet 00:00: mouth [place] 00 every 8 Medical (eight) Branch hours. ibuprofen 2020-0 Yes [id number] 800mg Take 1 Univers 800 mg 2-03 [id number] tablet by ity of tablet 00:00: mouth [place] 00 every 8 Medical (eight) Branch hours. ibuprofen 2020-0 Yes [id number] 800mg Take 1 Univers 800 mg 2-03 [id number] tablet by ity of tablet 00:00: mouth [place] 00 every 8 Medical (eight) Branch hours. ibuprofen 2020-0 Yes [id number] 800mg Take 1 Univers 800 mg 2-03 [id number] tablet by ity of tablet 00:00: mouth [place] 00 every 8 Medical (eight) Branch hours. ibuprofen 2020-0 Yes [id number] 800mg Take 1 Univers 800 mg 2-03 [id number] tablet by ity of tablet 00:00: mouth [place] 00 every 8 Medical (eight) Branch hours. ibuprofen 2020-0 Yes [id number] 800mg Take 1 Univers 800 mg 2-03 [id number] tablet by ity of tablet 00:00: mouth [place] 00 every 8 Medical (eight) Branch hours. morpHINE 0 2019- No 4mg 4 mg, Slow Un evangelista injection 4 06-05 08-08 IV Push, ity of mg 10:49: 11:48 Q6HPRN, [place] 49 :49 Starting Medical 06/05/20 Branch at 0549, Until 06/05/20 at 0648, Routine, Pain (scale 7-10) morpHINE 2020-0 2020- No 4mg 4 mg, Slow Un evangelista injection 4 06-05 08-08 IV Push, ity of mg 04:46: 05:14 Q6HPRN, [place] 55 :00 Starting Medical 06/04/20 Branch at 2346, Until 06/05/20 at 0014, Routine, Pain (scale 7-10) HYDROmorpho 2020-0 2020- No .5mg 0.5 mg, Un evangelista ne 06-05-08 Slow IV ity of (DILAUDID) 01:00: 01:07 Push, [place] injection 00 :00 ONCE, 1 Medical 0.5 mg dose, Fri Branch 06/04/20 at 2000, Routine
Use approved by (Faculty): ADC PROVIDER simethicone 2020-0 Yes 80mg 80 mg, [facility] ers (GAS RELIEF 8-08 Oral, ity of (SIMETHICON 00:53: Q6HPRN, [place] E)) 45 Starting Medical chewable 06/04/20 Branc h tablet 80 at 1953, mg Until Discontinu ed, Routine, Gas HYDROcodone 2020-0 Yes [id number] 1{tbl} Take 1 Un evangelista -acetaminop 8-08 tablet by ity of hen 5-325 00:00: mouth [place] mg tablet 00 every 6 Medical (six) Branch hours as needed for Pain (scale 7-10). Indication s: acute pain ibuprofen 2020-0 Yes [id number] 600mg Take 1 U nivers 600 mg [...] Indication s: acute pain ibuprofen 2020-0 Yes [id number] 600mg Take 1 U nivers 600 mg [...] Indication s: acute pain ibuprofen 2020-0 Yes [id number] 600mg Take 1 U nivers 600 mg [...] Indication s: acute pain ibuprofen 2020-0 Yes [id number] 600mg Take 1 U nivers 600 mg [...] Indication s: acute pain ibuprofen 2020-0 Yes [id number] 600mg Take 1 U nivers 600 mg [...] Indication s: acute pain ibuprofen 2020-0 Yes [id number] 600mg Take 1 U nivers 600 mg [...] Indication s: acute pain ibuprofen 2020-0 Yes [id number] 600mg Take 1 U nivers 600 mg [...] Indication s: acute pain ibuprofen 2020-0 Yes [id number] 600mg Take 1 U nivers 600 mg [...] Indication s: acute pain ibuprofen 2020-0 Yes [id number] 600mg Take 1 U nivers 600 mg [...] Indication s: acute pain ibuprofen 2020-0 Yes [id number] 600mg Take 1 U nivers 600 mg [...] Indication s: acute pain ibuprofen 2020-0 Yes [id number] 600mg Take 1 U nivers 600 mg [...] Yes 600mg 600 mg, Univ ers (IBU) 8-07 Oral, Q6H, ity of tablet 600 23:00: First dose [place] mg 00 on Fri Medical 06/04/20 at Branch 1800, Until Discontinu ed, Routine acetaminoph 2019-0 Yes 500mg 500 mg, Un evangelista en 8-07 Oral, Q6H, ity of (TYLENOL) 23:00: [place] tablet 500 00 on Fri Medical mg 06/04/20 at Branch 1800, Until Discontinu ed, Routine HYDROmorpho 2020- No .2mg 0.2 mg, Un evangelista ne 06-04 Slow IV ity of (DILAUDID) 22:40: 22:59 Push, [place] injection 39 :26 Q5MIN PRN, Medi libra 0.2 mg 10 doses, Branch Starting 06/04/20 at 1740, Until 06/04/20 at 1759, Routine, Pain (scale 7-10), PACU
Us e approved by (Faculty): PACU USE -ANESTHESI A SERVICE-HY DROMORPHON E INJECTIONS FENTanyl PF 2019-0 2020- No 25ug 25 mcg, Un evangelista (SUBLIMAZE 06-04- Slow IV ity o f (PF)) 21:34: 21:54 Push, [place] injection 53 :00 Q5MIN PRN, Medi libra 25 mcg 4 doses, Branch Starting Sun06/04/20 at 1634, Until Sun06/04/20 at 1654, Routine, Pain (scale 7-10), PACU morpHINE 2019-0 2020- No 2mg 2 mg, Slow Un evangelista injection 2 06-04 0808 IV Push, ity of mg 21:15: 04:47 Q6HPRN, [place] 00 :16 Starting Medical Sun06/04/20 Branch at 1615, Until Sun06/04/20 at 2347, Routine, Pain (scale 7-10) traMADol 2020-0 Yes 100mg 100 mg, Unive rs (ULTRAM) 8-07 Oral, ity of tablet 100 21:03: Q6HPRN, [place] mg 48 Starting Medical Sun06/04/20 Branch at 1603, Until Discontinu ed, Routine, Pain (scale 4-6) traMADol 2020-0 Yes 50mg 50 mg, Univers (ULTRAM) 807 Oral, ity of tablet 50 21:03: Q6HPRN, [place] mg 36 Starting Medical Sun06/04/20 Branch at 1603, Until Discontinu ed, Routine, Pain (scale 1-3) piperacilli 2019-0 2020- No 3.375g 3.375 g, Univers n-tazobacta 06-0408 IV ity of m (ZOSYN) 10:00: 16:00 Piggyback, [place] 3.375 g in 00 :21 Q6H ABX, Medic al NaCl 0.9% First dose Bran ch (NS) 100 mL (after MINI-BAG last reorder) on Sun06/04/20 at 0500, Until Discontinu ed, 100 mL
Reas on for Anti-Infec tive: Documented Infection< br>Documen [place] Infection Site: Abdominal< br>Duratio n of Therapy: 7 days NaCl 0.9% 2019-0 2020- No 1000mL at 125 Uni vers (NS) IV 06-04 08-07 mL/hr, IV ity of infusion 05:45: 22:52 Infusion, [place] 1,000 mL 00 :44 CONTINUOUS Medic al , Starting Branch Sun06/04/20 at 0045, Until Sun06/04/20 at 1752, Routine ondansetron 2019-0 Yes 4mg 4 mg, Slow Univers (ZOFRAN 06-04 IV Push, ity of (PF)) 05:42: Q6HPRN, [place] injection 4 45 Starting Medi libra mg 06/04/20 Branch at 0042, Until Discontinu ed, Routine, Nausea and Vomiting (N/V) morpHINE 2019-2019- No 2mg 2 mg, Slow Un evangelista injection 2 06-04 IV Push, ity of mg 05:42: 21:04 Q4HPRN, [place] 41 :20 Starting Medical 06/04/20 Branch at 0042, Until 06/04/20 at 1604, Routine, Pain (scale 7-10) piperacilli 2019-2019- No 3.375g 3.375 g, Univers n-tazobacta 06-04 IV ity of m (ZOSYN) 04:15: 03:58 Piggyback, [place] 3.375 g in 00 :00 ONCE, 1 Medica l NaCl 0.9% dose, [place] Branc h (NS) 100 mL 06/03/20 at MINI-BAG 2315, 100 mL
Reas on for Anti-Infec tive: Documented Infection< br>Documen [place]amus Infection Site: Abdominal< br>Duratio n of Therapy: 7 days iohexol 2019- No 120mL 120 mL, Unive rs (OMNIPAQUE 06-04 Intravenou it y of 350 02:45: 02:45 s, ONCE, 1 [place] BULK-150 00 :00 dose, [place] Medica l mL) 06/03/20 at Branch injection 2145, 120 mL Routine NaCl 0.9% 2019- No 1000mL at 999 Uni vers (NS) bolus 06-04 mL/hr, ity of infusion 02:30: 04:26 1,000 mL, [place] 1,000 mL 00 :00 IV Medical Infusion, [place] ONCE, 1 dose, [place] 06/03/20 at 2130, KIT ondansetron 2019- 2020- No 4mg 4 mg, Slow Univers (ZOFRAN 06-04 IV Push, ity of (PF)) 02:30: 01:30 ONCE, 1 [place] injection 4 00 :00 dose, [place] Med ical mg 06/03/20 at Branch 2130, KIT morpHINE 2020- No 4mg 4 mg, Slow Un evangelista injection 4 06-04 IV Push, ity of mg 02:30: 01:30 ONCE, 1 [place] 00 :00 dose, [place] Medical 06/03/20 at Branch 2130, STAT famotidine 2020- No 20mg 20 mg, Univ ers (PEPCID 06-04 Slow IV ity of (PF)) 02:30: 01:30 Push, [place] injection 00 :00 ONCE, 1 Medical 20 mg dose, [place] Branch 06/03/20 at 2130, KIT Vital Signs Vital Name Observation Time Observation Value Comments Source Systolic blood 2022-07-29 03:33:00 123 mm[Hg] Univer [facility] Diastolic blood 2022-07-29 03:33:00 77 mm[Hg] Unive rsity of [facility] Heart rate 2022-07-29 03:33:00 63 /min [facility] Body temperature 2022-07-29 03:33:00 36.61 Marge [facility] Respiratory rate 2022-07-29 03:33:00 18 /min [facility] Oxygen saturation in 2022-07-29 03:33:00 99 /min [facility] Arterial blood by [facility] [place] [facility] Pulse oximetry [place] Body height 2022-07-29 01:21:00 170.2 cm [facility] Body weight 2022-07-29 01:21:00 84.823 kg [facility] BMI 2022-07-29 01:21:00 29.29 kg/m2 [facility] Systolic blood 2020-12-08 05:40:00 126 mm[Hg] Univer sity of [facility] Diastolic blood 2020-12-08 05:40:00 88 mm[Hg] Unive rsity [facility] Heart rate 2020-12-08 05:40:00 102 /min [facility] Respiratory rate 2020-12-08 05:40:00 18 /min [facility] [place] [facility] Oxygen saturation in 2020-12-08 05:40:00 99 /min University of Arterial blood by [facility] libra Pulse oximetry Branch Body temperature 2020-12-08 03:49:00 37.61 Marge Univ [facility] [place] [facility] Body weight 2020-12-08 03:49:00 108.863 kg [facility] [place] [facility] BMI 2020-12-08 03:49:00 37.59 kg/m2 [facility] [place] [facility] Systolic blood 2020-12-01 08:03:00 136 mm[Hg] Univer sity of [facility] [place] [facility] Diastolic blood 2020-12-01 08:03:00 91 mm[Hg] Unive rsity of [facility] [place] [facility] Heart rate 2020-12-01 08:03:00 93 /min [facility] [place] [facility] Respiratory rate 2020-12-01 08:03:00 18 /min Univ [facility] [place] [facility] Oxygen saturation in 2020-12-01 08:03:00 99 /min University of Arterial blood by [facility] [place] [facility] Pulse oximetry Branch Body temperature 2020-12-01 05:32:00 37.28 Marge Univ [facility] [place] [facility] Body height 2020-12-01 05:32:00 170.2 cm [facility] [place] [facility] Body weight 2020-12-01 05:32:00 63.504 kg [facility] [place] [facility] BMI 2020-12-01 05:32:00 21.93 kg/m2 [facility] [place] [facility] Body temperature 2020-06-25 18:34:00 36.11 Marge Univ [facility] [place] [facility] Respiratory rate 2020-06-25 18:34:00 18 /min Univ ers[facility] [place] [facility] Body weight 2020-06-25 18:34:00 89.359 kg [facility] [place] [facility] Systolic blood 2020-06-25 18:34:00 126 mm[Hg] Univer sity of [facility] [place] [facility] Diastolic blood 2020-06-25 18:34:00 81 mm[Hg] Unive rsity of [facility] [place] [facility] Heart rate 2020-06-25 18:34:00 76 /min [facility] [place] [facility] Systolic blood 2020-06-05 16:02:00 112 mm[Hg] Univer sity of [facility] [place] [facility] Diastolic blood 2020-06-05 16:02:00 57 mm[Hg] Unive rsity of pressure [facility] [place] [facility] Heart rate 2020-06-05 16:02:00 74 /min [facility] Body temperature 2020-06-05 16:02:00 36.61 Marge [facility] Respiratory rate 2020-06-05 16:02:00 20 /min [facility] Oxygen saturation in 2020-06-05 16:02:00 99 /min [facility] Arterial blood by [facility] [place] [facility] Pulse oximetry [place] Body height 2020-06-04 14:46:00 170.2 cm [facility] Body weight 2020-06-04 14:46:00 90.5 kg [facility] BMI 2020-06-04 14:46:00 31.24 kg/m2 [facility] Procedures Procedure Date / Time Performing Clinician Source Performed CT ABDOMEN PELVIS WO 2022-07-29 02:11:32 Kt Macias [facility] CONTRAST [facility] URINALYSIS 2022-07-29 01:30:[address] [facility] LIPASE 2022-07-29 01:27:[address] [facility] COMP. METABOLIC PANEL 2022-07-29 01:27:00 Kt Macias [facility] ([id number]) [facility] CBC WITH DIFF 2022-07-29 01:27:[address] [facility] NOTICE OF PRIVACY 2022-07-29 01:16:35 Doctor Unassigned, No Univ [facility] PRACTICES Name [facility] CONSENT/REFUSAL FOR 2022-07-29 01:16:00 [facility]assigned, [facility] Name [facility] TESTICULAR TORSION 2020-12-08 05:07:54 Evelyn Che [facility] URINALYSIS 2020-12-08 04:18:00 Evelyn Che [place] o f [facility] US TESTICULAR TORSION 2020-12-01 08:31:51 Isac Rodrigez [facility] HEPATIC FUNCTION PANEL 2020-12-01 06:34:00 Isac [facility]igez [facility] ([id number] (ALB,T.PRO,BILI Medical Branch T,BU/BC,ALT,AST,ALK PHOS) BASIC METABOLIC PANEL 2020-12-01 06:34:00 [facility] (NA, K, CL, CO2, Medical Branch GLUCOSE, BUN, CREATININE, CA) CBC WITH DIFF 2020-12-01 06:34:00 [facility] / INR 2020-12-01 06:34:00 Elia [facility] ACTIVATED PARTIAL 2020-12-01 06:34:00 Elia [facility] THRMPLAS PENNY [facility] COVID-19 (ID NOW RAPID 2020-12-01 06:34:00 [facility] TESTING) Medical Branch URINALYSIS 2020-12-01 05:40:00 Elia [facility] NOTICE OF PRIVACY 2020-12-01 05:28:30 Doctor Unassigned, No [facility] PRACTICES Name Medical [place] CONSENT/REFUSAL FOR 2020-12-01 05:27:16 Doctor Unassigned, No [facility] Name Medical Branch CONSENT/REFUSAL FOR 2020-06-25 18:26:52 Doctor Unassigned, No [facility] Name Medical [place] BASIC METABOLIC PANEL 2020-06-05 11:05:00 [facility] (NA, K, CL, CO2, Medical Branch GLUCOSE, BUN, CREATININE, CA) CBC WITH DIFF 2020-06-05 11:05:[facility] PELVIS W 2020-06-04 02:39:28 Macey Kamara [facility] CONTRAST Medical Branch COVID-19 (ID NOW RAPID 2020-06-04 02:28:00 [facility] TESTING) Medical Branch URINALYSIS 2020-06-04 01:23:00 Anh [facility] Branch LIPASE 2020-06-04 01:22:00 Anh [facility] HEPATIC FUNCTION PANEL 2020-06-04 01:22:00 [facility] ([id number] (ALB,T.PRO,BILI Medical Branch T,BU/BC,ALT,AST,ALK PHOS) BASIC METABOLIC PANEL 2020-06-04 01:22:00 Macey Kamara [facility] (NA, K, CL, CO2, Medical Branch GLUCOSE, BUN, CREATININE, CA) CBC WITH DIFF 2020-06-04 01:22:[address] [facility] NOTICE OF PRIVACY 2020-06-04 00:53:21 Doctor Unassigned, No [facility] PRACTICES Name [facility] CONSENT/REFUSAL FOR 2020-06-04 00:52:28 Doctor [facility]assigned, [facility]REAT[facility] Name [facility] Plan of Care Planned Activity Planned Date Details Comments Source Encounters Start End Encounter Admission Attending Care Care Encounter Source Date/Time Date/Time Type Type Clinicians Facility Department ID 2021-08-27 Emergency [facility] [id number] Univers 22:41:01 ity [facility] 2021-08-27 Emergency [facility] [id number] Univers 21:25:25 ity of [facility] 2022-07-28 2022-07-28 Emergency X [facility] ERT [id number] Univers 20:20:00 22:45:00 KT ity [facility] 2022-07-28 2022-07-28 Emergency [facility] [id number] Univers 20:20:00 22:45:00 Kt ORTIZ [id number] ity of [place] 4.2.7.2.686 [facility] [id number] [facility] 084 Branch 2022-07-28 2022-07-28 Orders Doctor SPARKS [id number] Univers 00:00:00 00:00:00 Only Unassigned, CANDICE [id number] ity of [place] [facility] [address] [place] [address] [id number] [facility] 009 Branch 2020-12-07 2020-12-08 Emergency [facility] [id number] Univers 21:51:00 00:02:00 Evelyn Ortiz [id number] i ty of [place] 4.[address] [place] [phone] 2020-12-07 2020-12-07 Office [facility] [id number] 14:15:47 14:45:47 Visit [facility] [id number] [place] [address] [phone] Primary & 204 Specialty Care 2020-12-07 2020-12-07 Office [facility] [id number] Univers 14:15:47 14:45:47 Visit [facility] [id number] it y of [place] [address] [place] [address] [phone] [facility] Care 2020-12-07 2020-12-07 [id number] Univers 14:30:00 14:30:00 MARIA INES [id number] [facility] 2020-12-07 2020-12-07 Outpatient Yue CHICAS [facility] [id number] Univers 14:30:00 14:30:00 [facility] 2020-11-30 2020-12-01 Emergency [facility] [id number] Univers 23:41:00 02:57:00 Isac Ortiz [id number] i ty of [address] [place] [id number] 2020-07-01 2020-07-01 Outpatient Yue CASTILLO [facility] [id number] Univers 16:15:00 16:15:00 KAMILA [facility] 2020-06-25 2020-06-25 Office [facility] [id number] Univers 14:04:13 14:04:13 Visit Deepthi Ortiz [id number] ity of [place] 4.[address] [place], [place] [address]ess [phone] [address] 2020-06-25 2020-06-25 Outpatient R LOYDA [facility] [id number] Univers 13:30:00 13:30:00 DEEPTHI hassancarlito [facility] 2020-06-25 2020-06-25 Orders Doctor CLARE [id number] Univers 00:00:00 00:00:00 Only Unassigned, CANDICE [id number] ity of [place] [facility] 4.2.7.2.686 [place] as [id number] [facility] 009 [place] 2020-06-07 2020-06-07 Transition Bertin Saunders [id number] Univers 00:00:00 00:00:00 of Care Demetria [place] [id number] ity of [place] 4[place]2.7.2.686 [place] [id number] [facility] 403 [place] 2020-06-03 2020-06-05 Hospital Macey Kamara [facility] 1.2.840. [id number] Univers 19:57:00 14:33:00 Encounter Kt Macias [place] [id number] 0 ity of [place] Hilario 4.2.7.2.686 [facility] [id number] [facility] 081 [place] 2020-06-03 2020-06-03 Emergency [facility]RT [id number] Univers 19:57:00 19:57:00 MACEY carlito [facility] Results Test Description Test Time Test Comments Results Result Comments Source Complete Metabolic Panel 2022-07-29 01:48:30 Test Item Value Reference Range Interpretation Comme nts NA (test code = 3541776858) 142 mmol/L 135-145 K (test code = 6945833861) 3.9 mmol/L 3.5-5 CL (test code = 4952216562) 104 mmol/L 98-108 CO2 TOTAL (test code = 3314258744) 24 mmol/L 23-31 AGAP (test code = 9389101508) 2-16 BUN (test code = 6347912121) 9 mg/dL 7-23 GLUCOSE (test code = 3060513911) 125 mg/dL 70-110 H CREATININE (test code = 0.70 mg/dL 0.6-1.25 5190512153) TOTAL BILI (test code = 0.6 mg/dL 0.1-1.5 5730653585) CALCIUM (test code = 8120501169) 10.0 mg/dL 8.6-10.6 T PROTEIN (test code = 2946178123) 8.3 g/dL 6.3-8.2 H ALBUMIN (test code = 6053560533) 5.2 g/dL 3.5-5 H ALK PHOS (test code = 7567967337) 81 U/L 34-122 ALTv (test code = 1742-6) 35 U/L 5-50 AST(SGOT) (test code = 3173145774) 32 U/L 13-40 eGFR (test code = 5443817821) mL/min/1.73m2 LISA (test code = LISA) Association of Glomerular Filtration Rate (GFR) and Staging of Kidney Disease* + +-------- + ------+| GFR (mL/min/1.73 m2) ?| With Kidney Damage ?| ?Without Kidney Damage+ +-- + +| ?>90 ?| ?Stage one ?| ? Normal ?+ +------- + -------+| ?60-89 ?| ?Stage two ?| ? Decreased GFR ? + +-------- + ------+| ?30-59 ?| ?Stage three ?| ? Stage three ? + +-------- + ------+| ?15-29 ?| ?Stage four ? | ? Stage four ?+ +------- + -------+| ?<15 (or dialysis) ? ?| ?Stage five ? | ? Stage five ?+ +------- + -------+ *Each stage assumes the associated GFR [...] or abnormalities in imaging tests). Lab Interpretation (test code = Abnormal 68232-6) [facility] HospitalLipase, [id number] 01:48:09 Test Item Value Reference Range Interpretation Comments LIPASE (test code = 8385535610) 23 U/L 0-220 Lab Interpretation (test code = Normal 20279-4) [facility]CB with Yvhtppzotcee2040-36-64 01:37:47 Test Item Value Reference Range Interpretation Comments WBC (test code = See_Comment H [Automated 6690-2) message] The sy stem which generated this result transmitted reference range : 4.20 - 10.70 10*3/?L. The reference range was not used to interpret this result as normal/abnormal . RBC (test code = See_Comment [Automated 789-8) message] The sy stem which generated this result transmitted reference range : 4.26 - 5.52 10*6/?L. The reference range was not used to interpret this result as normal/abnormal . HGB (test code = 16.3 g/dL 12.2-16.4 718-7) HCT (test code = 46.7 % 38.4-49.3 4544-3) MCV (test code = 84.8 fL 81.7-95.6 787-2) MCH (test code = 29.6 pg 26.1-32.7 785-6) MCHC (test code = 34.9 g/dL 31.2-35 786-4) RDW-SD (test code = 39.0 fL 38.5-51.6 37609-1) RDW-CV (test code = 12.7 % 12.1-15.4 788-0) PLT (test code = See_Comment H [Automated 777-3) message] The sy stem which generated this result transmitted reference range : 150 - 328 10*3/ ?L. The reference r keshia was not used to interpret this result as normal/abnormal . MPV (test code = 9.0 fL 9.8-13 L 64747-1) NRBC/100 WBC (test See_Comment [Automat ed code = 1111181518) message] The system which generated this result transmitted reference range : 0.0 - 10.0 /100 WBCs. The refer ence range was not u sed to interpret th is result as normal/abnormal . NRBC x10^3 (test code See_Comment [Auto mated = 2709835497) message] The s ystem which generated this result transmitted reference range : 10*3/?L. The reference range was not used to interpret this result as normal/abnormal . GRAN MAT (NEUT) % 79.8 % (test code = 770-8) IMM GRAN % (test code 0.30 % = 8263067927) LYMPH % (test code = 14.4 % 736-9) MONO % (test code = 4.7 % 5905-5) EOS % (test code = 0.5 % 713-8) BASO % (test code = 0.3 % 706-2) GRAN MAT x10^3(ANC) 9.21 10*3/uL 1.99-6.95 H (test code = 7345205172) IMM GRAN x10^3 (test 0.04 10*3/uL 0-0.06 code = 4186126488) LYMPH x10^3 (test code 1.66 10*3/uL 1.09-3.23 = 731-0) MONO x10^3 (test code 0.54 10*3/uL 0.36-1.02 = 742-7) EOS x10^3 (test code = 0.06 10*3/uL 0.06-0.53 711-2) BASO x10^3 (test code 0.04 10*3/uL 0.01-0.09 = 704-7) Lab Interpretation Abnormal (test code = 98435-1) [facility] TESTICULAR [id number] 05:38:51 No evidence of testicular torsion. Normal spectral and color Dopplerfindings at both testicles. Left testicular microlithiasis. Simple 8 mm right epididymal head cyst. Nonspecific partially calcified 4 mm extratesticular nodularity adjacent tothe right testicle, likely benign. No suspicious testicular lesions. Preliminary Report Dictated by Resident: Heron Ireland MD., have reviewed this study and agree with the abovereport.US TESTICULAR TORSION HISTORY: left testicular pain HadUS last week, was having right testicularpain, pain now worse . TECHNIQUE: Testicular ultrasound performed with grayscale, color, andspectral Doppler images obtained. COMPARISON: 12/01/2020 FINDINGS: RIGHT TESTICLE: Normal size, shape, and echotexture without a focal lesion.The right testicle measures 4.0 x 1.8 x 2.8 cm (10.6 mL). LEFT TESTICLE: Normal size, shape, and echotexture without a focal lesion.Microlithiasis is redemonstrated. The left testicle measures 4.3 x 3.1 x2.7 cm (18.9 mL). A lobulated echogenic extratesticular nodularity adjacent to the righttestes on image #34 with posterior acoustic shadowing measures up to 4 mm,nonspecific but likely benign pathology. EPIDIDYMIDES: Unchanged 8 mm anechoic right epididymal head cyst. BLOOD FLOW: Bilateral arterial waveforms. The blood flow is grosslysymmetric. SCROTUM: No hydrocele. VARICOCELE: None. [facility], Radiant Results Inft User - 12/07/2020 11:40 PM CSTUS TESTICULAR TORSIONHISTORY: left testicular pain Had US last week, was having right testicularpain, pain now worse .TECHNIQUE: Testicular ultrasound performed with grayscale, color, andspectral Doppler images obtained.COMPARISON: 12/01/2020FINDINGS: RIGHT TESTICLE: Normal size, shape, andechotexture without a focal lesion.The right testicle measures 4.0 x 1.8 x 2.8 cm (10.6 mL). LEFT TESTICLE: Normal size, shape, and echotexture without a focal lesion.Microlithiasis is redemonstrated. The left testicle measures 4.3 x 3.1 x2.7 cm (18.9 mL). A lobulated echogenic extratesticular nodularity adjacent to the righttestes on image #34 with posterior acoustic shadowing measures up to 4 mm,nonspecific but likely benign pathology. EPIDIDYMIDES: Unchanged 8 mm anechoic right epididymal head cyst.BLOOD FLOW: Bilateral arterial waveforms. The blood flow is grosslysymmetric.SCROTUM: No hydrocele.VARICOCELE: None.IMPRESSIONNo evidence of testicular torsion. Normal spectral and color Dopplerfindings at both testicles. Left testicular microlithiasis.Simple 8 mm right epididymal head cyst.Nonspecific partially calcified 4 mm extratesticular nodularity adjacent tothe right testicle, likely benign.No suspicious testicular lesions.Preliminary Report Dictated by Resident: Heron Jackson MD., have reviewed this study and agree with the abovereport.[facility] HospitalURINALYSIS2021-02-10 04:59:00 Test Item Value Reference Range Interpretation Comments APPEARANCE (test code = Hazy Clear A 1772293734) COLOR (test code = Yellow Yellow 3839129744) PH (test code = 4.8-8.0 4584699436) SP GRAVITY (test code = 1.003-1.030 7563350829) GLU U QUAL (test code = Normal Normal 1983593627) BLOOD (test code = Negative Negative 2457000583) KETONES (test code = Negative Negative 6337405241) PROTEIN (test code = Negative Negative 2887-8) UROBILIN (test code = Normal Normal 9026031326) BILIRUBIN (test code = Negative Negative 4040580693) NITRITE (test code = Negative Negative 5752718866) LEUK MARVIN (test code = Negative Negative 9525992732) RBC/HPF (test code = See_Comment [Autom ated message] 9130798339) The system [employer] generated this result transmitted ref erence range: 0 - 3 HP F. The reference range was not used to int erpret this result as normal/abnormal . WBC/HPF (test code = See_Comment [Autom ated message] 9120131834) The system [employer] generated this result transmitted ref erence range: 0 - 5 HP F. The reference range was not used to int erpret this result as normal/abnormal . BACTERIA (test code = Few Negative A 9295612531) AMORPHOUS (test code = Few Rare HPF A 9012641657) Lab Interpretation (test Abnormal code = 15486-9) [facility] HospitalCOVID-19 (ID NOW RAPID TESTING)2020-12-01 06:59:00 Test Item Value Reference Range Interpretation Comments SARS-CoV-2 Rapid ID NOW Not Detected Not Detected (test code = 89701-7) LISA (test code = LISA) ID NOW COVID-19 Assay is an isothermal nucleic acid amplification test intended for the qualitative detection of nucleic acid from SARS-CoV-2 viral RNA in nasopharyngeal (VETERINARY PRACTITIONER) specimens. It is used under Emergency Use [...] indicated. Lab Interpretation Normal (test code = 78579-0) [facility] Metabolic Panel (NA, K, CL, CO2, GLUCOSE, BUN, CREATININE, CA)2020-12-01 06:55:00 Test Item Value Reference Range Interpretation Comments NA (test code = 141 mmol/L 135-145 9886857872) K (test code = 4.2 mmol/L 3.5-5 3632040466) CL (test code = 104 mmol/L 98-108 7199659310) CO2 TOTAL (test code = 26 mmol/L 23-31 3486105902) AGAP (test code = 2-16 0484427912) BUN (test code = 11 mg/dL 7-23 3683331334) GLUCOSE (test code = 135 mg/dL 70-110 H 0820554752) CREATININE (test code = 0.53 mg/dL 0.6-1.25 L 0961180528) CALCIUM (test code = 9.5 mg/dL 8.6-10.6 6273753438) eGFR Calculation mL/min/1.73m2 (Non-) (test code = 2520984839) eGFR Calculation mL/min/1.73m2 () (test code = 7915028486) LISA (test code = LISA) Association of [...] tests). Lab Interpretation Abnormal (test code = 70865-8) [facility] HospitalHepatic Function Panel (ALB, T.PRO, BILI T, BU/BC, ALT, AST, ALK PHOS)2020-12-01 06:55:00 Test Item Value Reference Range Interpretation Comments TOTAL BILI (test code = 6542640751) 0.5 mg/dL 0.1-1.1 BILI UNCON (test code = 2475029915) 0.2 mg/dL 0.1-1.1 BILI CONJ (test code = 7693652875) 0.0 mg/dL 0-0.3 T PROTEIN (test code = 0000411911) 8.2 g/dL 6.3-8.2 ALBUMIN (test code = 1773456202) 4.8 g/dL 3.5-5 ALK PHOS (test code = 8757302937) 135 U/L 34-122 H ALTv (test code = 1742-6) 51 U/L 5-50 H AST(SGOT) (test code = 8300596337) 40 U/L 13-40 Lab Interpretation (test code = Abnormal 92783-5) [facility] HospitalaPTT2021-02-03 06:53:00 Test Item Value Reference Range Interpretation Comments APTT Patient (test See_Comment [Automat ed code = 3173-2) message] The system which generated this result transmitted reference range : 23 - 38 Seconds . The reference range was not used to interpr et this result as normal/abnormal . LISA (test code = LISA) The [facility] patient population mean normal value for aPTT is 30 seconds. Lab Interpretation Normal (test code = 74563-5) [facility] HospitalProthrombin Time (PT) / [id number] 06:51:00 Test Item Value Reference Range Interpretation [...] tions. Lab Interpretation (test Normal code = 65818-1) [facility]CB with Hrydqohbzqee5733-47-51 06:44:00 Test Item Value Reference Range Interpretation Comments WBC (test code = See_Comment [Automated 1490-2) message] The sy stem which generated this result transmitted reference range : 4.20 - 10.70 10*3/?L. The reference range was not used to interpret this result as normal/abnormal . RBC (test code = See_Comment [Automated 469-8) message] The sy stem which generated this [...] (test code = 37.9 fL 38.5-51.6 L 39695-3) RDW-CV (test code = 12.3 % 12.1-15.4 788-0) PLT (test code = See_Comment H [Automated 777-3) message] The sy stem which generated this result transmitted reference range : 150 - 328 10*3/ ?L. The reference r keshia was not used to interpret this result as normal/abnormal . MPV (test code = 8.9 fL 9.8-13 L 65207-3) NRBC/100 WBC (test See_Comment [Automat ed code = 7745638498) message] The system which generated this result transmitted reference range : 0.0 - 10.0 /100 WBCs. The refer ence range was not u sed to interpret th is result as normal/abnormal . NRBC x10^3 (test code <0.01 See_Comment [Auto mated = 4366369253) message] The s ystem which generated this result transmitted reference range : 10*3/?L. The reference range was not used to interpret this result as normal/abnormal . GRAN MAT (NEUT) % 53.1 % (test code = 770-8) IMM GRAN % (test code 0.50 % = 9106780029) LYMPH % (test code = 36.1 % 736-9) MONO % (test code = 7.6 % 5905-5) EOS % (test code = 2.3 % 713-8) BASO % (test code = 0.4 % 706-2) GRAN MAT x10^3(ANC) 4.14 10*3/uL 1.99-6.95 (test code = 3967483620) IMM GRAN x10^3 (test 0.04 10*3/uL 0-0.06 code = 0730214504) LYMPH x10^3 (test code 2.81 10*3/uL 1.09-3.23 = 731-0) MONO x10^3 (test code 0.59 10*3/uL 0.36-1.02 = 742-7) EOS x10^3 (test code = 0.18 10*3/uL 0.06-0.53 711-2) BASO x10^3 (test code 0.03 10*3/uL 0.01-0.09 = 704-7) Lab Interpretation Abnormal (test code = 84366-7) [facility]URINALYSIS2021-02-03 06:30:00 Test Item Value Reference Range Interpretation Comments APPEARANCE (test code = Hazy Clear A 8763433826) COLOR (test code = Yellow Yellow 6714681594) PH (test code = 4.8-8.0 4582724968) SP GRAVITY (test code = 1.003-1.030 6797917908) GLU U QUAL (test code = Normal Normal 0894012577) BLOOD (test code = Negative Negative 6299118959) KETONES (test code = Negative Negative 0373474061) PROTEIN (test code = Negative Negative 2887-8) UROBILIN (test code = 2.0 mg/dL Normal A 7787008643) BILIRUBIN (test code = Negative Negative 2864600418) NITRITE (test code = Negative Negative 9691818174) LEUK MARVIN (test code = Negative Negative 8558037335) RBC/HPF (test code = See_Comment [Autom ated message] 0839039838) The system [employer] generated this result transmit seamus reference range : 0 - 3 HPF. The refe rence range was not u sed to interpret th is result as normal/abnormal . WBC/HPF (test code = See_Comment [Autom ated message] 4538628592) The system [employer] generated this result transmit seamus reference range : 0 - 5 HPF. The refe rence range was not u sed to interpret th is result as normal/abnormal . BACTERIA (test code = Negative Negative 7222760946) MUCOUS (test code = Slight Negative LPF A 8457392963) AMORPHOUS (test code = Rare Rare HPF 7446569965) Lab Interpretation (test Abnormal code = 69452-2) [facility]Bal[facility] Metabolic Panel (NA, K, CL, CO2, GLUCOSE, BUN, CREATININE, CA)2020-06-05 12:37:00 Test Item Value Reference Range Interpretation Comments NA (test code = 136 mmol/L 135-145 9260800861) K (test code = 4.0 mmol/L 3.5-5 5484882706) CL (test code = 106 mmol/L 98-108 8261027383) CO2 TOTAL (test code = 23 mmol/L 23-31 4299265847) AGAP (test code = 2-16 5913252723) BUN (test code = 10 mg/dL 7-23 7422584129) GLUCOSE (test code = 122 mg/dL 70-110 H 0945272532) CREATININE (test code = 0.61 mg/dL 0.6-1.25 1082241315) CALCIUM (test code = 9.2 mg/dL 8.6-10.6 0691285148) eGFR Calculation mL/min/1.73m2 (Non-) (test code = 5548473209) eGFR Calculation mL/min/1.73m2 () (test code = 6014538333) LISA (test code = LISA) Association of [...] tests). Lab Interpretation Abnormal (test code = 42879-4) [facility] with Dnlcsqtagmkj3988-43-11 12:27:00 Test Item Value Reference Range Interpretation Comments WBC (test code = See_Comment [Automated 1490-2) message] The system which generated this result transmit seamus reference range : 4.50 - 13.50 10*3/?L. The reference range was not used to interpret this result as normal/abnormal . RBC (test code = See_Comment [Automated 789-8) message] The system which generated this result [...] RDW-SD (test code = 38.9 fL 38.5-49 43106-4) RDW-CV (test code = 12.4 % 11.5-14 788-0) PLT (test code = See_Comment [Automated 777-3) message] The system which generated this result transmit seamus reference range : 133 - 320 10*3/ ?L. The reference range was not u sed to interpret th is result as normal/abnormal . MPV (test code = 9.6 fL 9.3-12.9 81421-7) NRBC/100 WBC (test See_Comment [Automat ed code = 7763334125) message] The system which generated this result transmit seamus reference range : 0.0 - 10.0 /100 WBCs. The reference range was not used to interpret this result as normal/abnormal . NRBC x10^3 (test code <0.01 See_Comment [Auto mated = 9994642557) message] The system which generated this result transmit seamus reference range : 10*3/?L. The reference range was not used to interpret this result as normal/abnormal . GRAN MAT (NEUT) % 81.7 % (test code = 770-8) IMM GRAN % (test code 0.50 % = 8405176723) LYMPH % (test code = 11.6 % 736-9) MONO % (test code = 6.0 % 5905-5) EOS % (test code = 0.0 % 713-8) BASO % (test code = 0.2 % 706-2) GRAN MAT x10^3(ANC) 10.61 10*3/uL 1.5-10.3 H (test code = 3540941761) IMM GRAN x10^3 (test 0.06 10*3/uL 0-0.06 code = 3776237618) LYMPH x10^3 (test code 1.51 10*3/uL 0.7-7.4 = 731-0) MONO x10^3 (test code 0.78 10*3/uL 0-0.5 H = 742-7) EOS x10^3 (test code = <0.03 0-0.4 711-2) BASO x10^3 (test code <0.03 0-0.1 = 704-7) Lab Interpretation Abnormal (test code = 77437-7) [facility] HospitalCT ABDOMEN PELVIS W [id number] 04:43:28 1. ?Fluid-filled, thickened and mildly dilated appendix with minimaladjacent fat stranding, consistent with early acute appendicitis. Noevidence of perforation or organized collection identified. Findings were conveyed to Dr. Macias at 10:05 PM on 06/03/2020. Preliminary Report Dictated by Resident: Josephine Faulkner ?MD Jignesh., have reviewed this study and agree with the abovereport. EXAM: CTABDOMEN AND PELVIS WITH CONTRAST HISTORY: 19-year-old male complaints of right lower quadrant pain. COMPARISON: None. TECHNIQUE AND FINDINGS: Contiguous axial imaging [...] 0.8 cm and is fluid-filled withthickened enhancing walland minimal adjacent fat stranding. Noperiappendiceal free fluid, air or organized when compared No b oweldilation or wall thickening. PELVIS/BLADDER: The bladder is decompressed. VESSELS: Unremarkable.BONES AND SOFT TISSUES: No suspicious lytic [...] iterativereconstruction were used to reduce radiation dose.FINDINGS:LOWER THORAX:The lungs bases are clear. No cardiomegaly.LIVER: No [...] PM on 06/03/2020.Preliminary Report Dictated by Resident: eHrber Manning, Josephine Egan MD., have reviewed this study and agree with the abovereport.[facility]COVID[facility] (ID NOW RAPID TESTING)2020-06-04 03:32:00 Test Item Value Reference Range Interpretation Comments SARS-CoV-2 Rapid ID NOW Not Detected Not Detected (test code = 97447-6) LISA (test code = LISA) ID NOW COVID-19 Assay is an isothermal nucleic acid amplification test intended for the qualitative detection of nucleic acid from SARS-CoV-2 viral RNA in nasopharyngeal (VETERINARY PRACTITIONER) specimens. It is used under Emergency Use [...] indicated. Lab Interpretation Normal (test code = 29796-2) [facility] HospitalLIPASE2020-08-07 03:27:00 Test Item Value Reference Range Interpretation Comments LIPASE (test code = 0000243318) 15 U/L 0-220 Lab Interpretation (test code = Normal 20368-0) [facility] HospitalHepatic Function Panel (ALB, T.PRO, BILI T, BU/BC, ALT, AST, ALK PHOS)2020-06-04 02:34:00 Test Item Value Reference Range Interpretation Comments TOTAL BILI (test code = 1088519976) 0.7 mg/dL 0.1-1.1 BILI UNCON (test code = 3442408296) 0.8 mg/dL 0.1-1.1 BILI CONJ (test code = 3466934768) 0.0 mg/dL 0-0.3 T PROTEIN (test code = 0103016525) 8.8 g/dL 6.3-8.2 H ALBUMIN (test code = 5073912995) 5.2 g/dL 3.5-5 H ALK PHOS (test code = 9037265767) 91 U/L 34-122 ALTv (test code = 1742-6) 36 U/L 5-50 AST(SGOT) (test code = 7267468271) 30 U/L 13-40 Lab Interpretation (test code = Abnormal 07405-0) [facility] HospitalUrinalysis2020-08-07 02:28:00 Test Item Value Reference Range Interpretation Comments APPEARANCE (test code = Clear Clear 5527807032) COLOR (test code = Yellow Yellow 7863774255) PH (test code = 4.8-8.0 7632467728) SP GRAVITY (test code = 1.003-1.030 H 1580465570) GLU U QUAL (test code = Normal Normal 5535907258) BLOOD (test code = Negative Negative 5753495136) KETONES (test code = 80 mg/dL Negative A 7120952922) PROTEIN (test code = 30 mg/dL Negative A 2887-8) UROBILIN (test code = Normal Normal 0601566785) BILIRUBIN (test code = Negative Negative 4764823783) NITRITE (test code = Negative Negative 0212530887) LEUK MARVIN (test code = Negative Negative 9580380771) RBC/HPF (test code = See_Comment [Autom ated message] 3468892790) The system [employer] generated this result transmitted ref erence range: 0 - 3 HP F. The reference range was not used to int erpret this result as normal/abnormal . WBC/HPF (test code = <1 See_Comment [Autom ated message] 6114085886) The system [employer] generated this result transmitted ref erence range: 0 - 5 HP F. The reference range was not used to int erpret this result as normal/abnormal . BACTERIA (test code = Negative Negative 5668787292) MUCOUS (test code = Moderate Negative LPF A 9307554986) HYAL CAST (test code = See_Comment [Aut omated message] 6704531923) The system [employer] generated this result transmitted ref erence range: <=2 LPF. The reference range was not used to int erpret this result as normal/abnormal . Lab Interpretation (test Abnormal code = 01669-1) [facility] Metabolic Panel (NA, K, CL, CO2, GLUCOSE, BUN, CREATININE, CA)2020-06-04 02:17:00 Test Item Value Reference Range Interpretation Comments NA (test code = 140 mmol/L 135-145 2433808556) K (test code = 3.9 mmol/L 3.5-5 3582591855) CL (test code = 102 mmol/L 98-108 5226701218) CO2 TOTAL (test code = 24 mmol/L 23-31 5420117950) AGAP (test code = 2-16 0072801721) BUN (test code = 13 mg/dL 7-23 3339451370) GLUCOSE (test code = 116 mg/dL 70-110 H 8617562551) CREATININE (test code = 0.68 mg/dL 0.6-1.25 2192038470) CALCIUM (test code = 9.9 mg/dL 8.6-10.6 5048470677) eGFR Calculation mL/min/1.73m2 (Non-) (test code = 9343021093) eGFR Calculation mL/min/1.73m2 () (test code = 8241755987) LISA (test code = LISA) Association of [...] tests). Lab Interpretation Abnormal (test code = 50569-8) [facility] with Ilofvbkffebm7597-63-71 01:41:00 Test Item Value Reference Range Interpretation Comments WBC (test code = See_Comment H [Automated 4190-2) message] The system which generated this result transmit seamus reference range : 4.50 - 13.50 10*3/?L. The reference range was not used to interpret this result as normal/abnormal . RBC (test code = See_Comment [Automated 789-8) message] The system which generated this result [...] (test code = 37.9 fL 38.5-49 L 21486-1) RDW-CV (test code = 12.4 % 11.5-14 788-0) PLT (test code = See_Comment H [Automated 777-3) message] The system which generated this result transmit seamus reference range : 133 - 320 10*3/ ?L. The reference range was not u sed to interpret th is result as normal/abnormal . MPV (test code = 9.3 fL 9.3-12.9 66054-5) NRBC/100 WBC (test See_Comment [Automat ed code = 6589885499) message] The system which generated this result transmit seamus reference range : 0.0 - 10.0 /100 WBCs. The reference range was not used to interpret this result as normal/abnormal . NRBC x10^3 (test code <0.01 See_Comment [Auto mated = 5410147775) message] The system which generated this result transmit seamus reference range : 10*3/?L. The reference range was not used to interpret this result as normal/abnormal . GRAN MAT (NEUT) % 85.5 % (test code = 770-8) IMM GRAN % (test code 0.50 % = 2973129956) LYMPH % (test code = 7.9 % 736-9) MONO % (test code = 5.8 % 5905-5) EOS % (test code = 0.1 % 713-8) BASO % (test code = 0.2 % 706-2) GRAN MAT x10^3(ANC) 12.93 10*3/uL 1.5-10.3 H (test code = 7496722519) IMM GRAN x10^3 (test 0.08 10*3/uL 0-0.06 H code = 2189251805) LYMPH x10^3 (test code 1.19 10*3/uL 0.7-7.4 = 731-0) MONO x10^3 (test code 0.87 10*3/uL 0-0.5 H = 742-7) EOS x10^3 (test code = <0.03 0-0.4 711-2) BASO x10^3 (test code 0.03 10*3/uL 0-0.1 = 704-7) Lab Interpretation Abnormal (test code = 52373-4) [facility]"
[2022-07-29] MEDS ORDERED: NA CHLORIDE 0.9% 500 ML ONE (13:54)
[2022-07-29] MEDS ORDERED: KETOROLAC 30 MG/ML INJ ONE ×2 (13:54→17:16)
[2022-07-29 14:12] LABS: Urine Blood Negative (Negative); Urine Glucose Negative (Negative); Urine Protein Trace (Negative); Urine pH 6.5 (5.0-7.0)
[2022-07-29 14:18] LABS: Absolute Lymphocytes (CBC) 2.3 K/uL (0.7-4.9); Hematocrit 42.7 % (39.6-49.0); Lymphocytes % 20.2 % (15.3-44.8); MCV 85.8 fL (80-100); MPV 7.4 fL (7.6-11.3); RBC Red Blood Cell Count 4.98 M/uL (4.33-5.43)
[2022-07-29 14:36] LABS: Bilirubin Total 0.3 mg/dL (0.2-1.0); Potassium 3.6 mmol/L (3.5-5.1); Protein, Total 7.2 g/dL (6.4-8.2)
[2022-07-29 15:28] LABS: Urine Crystals Unidentified Few /HPF (None Seen); Urine Mucus 1+ /HPF (None Seen); Urine RBC <5 /HPF (None Seen); Urine WBC Clump Rare /HPF (None Seen)
--- NOTE | 2022-07-29 15:31 | RAD REPORT ---
EXAM DESCRIPTION: US - Abdomen Exam Limited - 07/29/2022 2:44 pm CLINICAL HISTORY: RUQ pain COMPARISON: Abdomen W Contrast dated 02/04/2018 FINDINGS: No mobile gallstones seen. A small amount of echogenic sludge or sandlike stones identifie d. There is no wall thickening or pericholecystic fluid. No common duct stone or biliary tree dilatation identified. IMPRESSION: Minimal gallbladder sludge. No acute gallbladder or biliary tree finding.
--- NOTE | 2022-07-29 17:03 | ER ---
Nurse's Notes [facility] Name: Kushal Tan Age: 22 yrs Sex: Male : 2000 Arrival Date: 07/29/2022 Time: 13:15 Bed 19 Private MD: Diagnosis: Right upper quadrant abdominal pain;Gallbladder sludge Presentation: 07/29 13:20 Chief complaint: Patient states: I started having really bad abdominal pain yesterday bm7 and I went to [facility]. They said there was nothing wrong with me. Today the pain has gotten worse and I can't go on another day like this. Coronavirus screen: At this time, the client does not indicate any symptoms associated with coronavirus-19. Ebola Screen: No symptoms or risks identified at this time. Initial Sepsis Screen: Does the patient meet any 2 criteria? No. Patient's initial sepsis screen is negative. Does the patient have a suspected source of infection? Yes: Acute abdominal pain. Risk Assessment: Do you want to hurt yourself or someone else? Patient reports no desire to harm self or others. Onset of symptoms was July 28, 2022. 13:20 Method Of Arrival: Ambulatory bm7 13:20 Acuity: MELO 3 bm7 Triage Assessment: 13:22 General: Appears in no apparent distress. uncomfortable, Behavior is calm, cooperative, bm7 appropriate for age. Pain: Complains of pain in right upper quadrant. EENT: No deficits noted. No signs and/or symptoms were reported regarding the EENT system. Neuro: No deficits noted. Cardiovascular: No deficits noted. Respiratory: No deficits noted. GI: Abdomen is round non-distended, Bowel sounds present X 4 quads. Abd is soft X 4 quads Abdomen is tender to palpation in right upper quadrant Reports nausea, vomiting. : No deficits noted. No signs and/or symptoms were reported regarding the genitourinary system. Derm: No deficits noted. No signs and/or symptoms reported regarding the dermatologic system. Musculoskeletal: No deficits noted. No signs and/or symptoms reported regarding the musculoskeletal system. Historical: - Allergies: 13:22 No Known Allergies; bm7 - Home Meds: 13:22 None [Active]; bm7 - PSHx: 13:22 Appendectomy; bm7 - Immunization history:: Adult Immunizations up to date, Client reports having NOT received the Covid vaccine. - Social history:: Smoking status: Reported history of juuling and/or vaping. Screenin:30 Abuse screen: Denies threats or abuse. Denies injuries from another. Nutritional bp screening: No deficits noted. Tuberculosis screening: No symptoms or risk factors identified. Fall Risk None identified. Assessment: 13:30 General: SEE TRIAGE NOTE. bp 15:00 Reassessment: No changes from previously documented assessment. Patient and/or family bp updated on plan of care and expected duration. Pain level reassessed. 17:27 Reassessment: PT DC HOME. bp Vital Signs: 13:19 BP 116 / 72; Pulse 100; Resp 16; Temp 99.2(TE); Pulse Ox 98% on R/A; Weight 90.72 kg bm7 (R); Height 5 ft. 7 in. (170.18 cm); Pain 10/10; 15:00 BP 125 / 58; Pulse 70; Resp 16; Pulse Ox 100% ; bp 17:27 BP 103 / 52; Pulse 73; Resp 16; Pulse Ox 100% ; bp 13:19 Body Mass Index 31.32 (90.72 kg, 170.18 cm) bm7 ED Course: 13:15 Patient arrived in ED. as 13:18 Amada Juan MD is Attending Physician. sd2 13:19 Arm band placed on left wrist. bm7 13:22 Triage completed. bm7 13:30 Patient has correct armband on for positive identification. Bed in low position. Call bp light in reach. Side rails up X2. 14:10 Initial lab(s) drawn, by me, sent to lab. Inserted saline lock: 20 gauge in left 3 antecubital area, using aseptic technique. Blood collected. 14:19 Urine Microscopic Only Sent. 3 15:12 Ernesto Charles, ABEL is Primary Nurse. bp 17:02 Hernesto Foote MD is Referral Physician. sd2 17:28 No provider procedures requiring assistance completed. IV discontinued, intact, bp bleeding controlled, No redness/swelling at site. Pressure dressing applied. Administered Medications: 14:02 Drug: Ketorolac 15 mg Route: IVP; Site: left antecubital; jl7 17:27 Follow up: Response: No adverse reaction bp 14:02 Drug: NS 0.9% 500 ml Route: IV; Rate: bolus; Site: left antecubital; jl7 17:29 Follow up: IV Status: Completed infusion; IV Intake: 500ml bp 17:20 Drug: Ketorolac 15 mg Route: IVP; Site: left antecubital; bp 17:27 Follow up: Response: No adverse reaction bp Intake: 17:29 IV: 500ml; Total: 500ml. bp Outcome: 17:03 Discharge ordered by MD. [email or web address] 17:28 Discharged to home ambulatory. bp 17:28 Condition: stable 17:28 Discharge instructions given to patient, Instructed on discharge instructions, follow up and referral plans. medication usage, Demonstrated understanding of instructions, follow-up care, medications, Prescriptions given X 2. 17:29 Patient left the ED. bp Signatures: Glory Mccartney Jahala, RN RN jl7 Ira Corcoran 3 Ernesto Charles RN RN Janett Hernandez, ABEL RN 7 Amada Juan MD MD sd2
--- NOTE | 2022-07-29 17:03 | EDPHYS ---
Physician Documentation [facility] Name: Kushal Tan Age: 22 yrs Sex: Male : 2000 Arrival Date: 07/29/2022 Time: 13:15 Bed 19 Private MD: ED Physician Amada Juan HPI: 07/29 13:35 This 22 yrs old Male presents to ER via Ambulatory with complaints of sd2 Abdominal Pain, Nausea/Vomiting. 13:35 22-year-old male presents with chief complaint of right-sided abdominal pain with sd2 nausea and vomiting. He states that he visited another ER in [place] yesterday and had a negative work-up including a CT scan at that time. He was told to take naproxen at home which he has tried taking without relief. He then started having vomiting today. He denies any fevers or diarrhea. He states he did take a laxative to help him have a bowel movement which she was able to do but did not have any significant change in his pain. He states he initially went to the ER yesterday due to difficulty urinating. He has been able to urinate normally since then. He denies any dysuria or hematuria.. Historical: - Allergies: 13:22 No Known Allergies; bm7 - Home Meds: 13:22 None [Active]; bm7 - PSHx: 13:22 Appendectomy; bm7 - Immunization history:: Adult Immunizations up to date, Client reports having NOT received the Covid vaccine. - Social history:: Smoking status: Reported history of juuling and/or vaping. ROS: 13:35 Constitutional: Negative for fever, chills, and weight loss, Eyes: Negative for injury, sd2 pain, redness, and discharge, Cardiovascular: Negative for chest pain, palpitations, and edema, Respiratory: Negative for shortness of breath, cough, wheezing. 13:35 Back: Negative for injury and pain, : Negative for dysuria, frequency or hematuria. MS/Extremity: Negative for injury and deformity, Skin: Negative for injury, rash, and discoloration, Neuro: Negative for headache, numbness and tingling. 13:35 Abdomen/GI: Positive for abdominal pain, nausea and vomiting, Negative for diarrhea. Exam: 13:35 Constitutional: This is a well developed, well nourished patient who is awake, alert, sd2 and in no acute distress. Head/Face: Normocephalic, atraumatic. Eyes: EOMI, normal conjunctiva bilaterally Chest/axilla: Normal chest wall appearance and motion. Nontender with no deformity. Cardiovascular: Regular rate and rhythm with a normal S1 and S2. No gallops, murmurs, or rubs. 2+ distal pulses. Respiratory: Lungs have equal breath sounds bilaterally, clear to auscultation and percussion. No rales, rhonchi or wheezes noted. No increased work of breathing, no retractions or nasal flaring. Abdomen/GI: Soft, ND, RUQ TTP with positive Rosenthal's sign, no rebound tenderness Skin: Warm, dry with normal turgor. Normal color with no rashes, no lesions, and no evidence of cellulitis. MS/ Extremity: Pulses equal, no cyanosis. Neurovascular intact. Full, normal range of motion. Ambulatory without difficulty. Psych: Awake, alert, with orientation to person, place and time. Behavior, mood, and affect are within normal limits. Vital Signs: 13:19 BP 116 / 72; Pulse 100; Resp 16; Temp 99.2(TE); Pulse Ox 98% on R/A; Weight 90.72 kg bm7 (R); Height 5 ft. 7 in. (170.18 cm); Pain 10/10; 15:00 BP 125 / 58; Pulse 70; Resp 16; Pulse Ox 100% ; bp 17:27 BP 103 / 52; Pulse 73; Resp 16; Pulse Ox 100% ; bp 13:19 Body Mass Index 31.32 (90.72 kg, 170.18 cm) bm7 MDM: 13:25 Patient medically screened. sd2 13:35 Differential diagnosis: Gastritis, cholecystitis, pancreatitis, SBO, diverticulitis, sd2 kidney stone, appendicitis, UTI, dehydration, electrolyte abnormality among others. Data reviewed: vital signs, nurses notes. 17:01 Data reviewed: lab test result(s), radiologic studies. Counseling: I had a detailed sd2 discussion with the patient and/or guardian regarding: the historical points, exam findings, and any diagnostic results supporting the discharge/admit diagnosis, lab results, the need for outpatient follow up, to return to the emergency department if symptoms worsen or persist or if there are any questions or concerns that arise at home. Medical screen evaluation completed. EMTALA emergency medical condition absent. ED course: Labs are grossly within normal clinical limits. Ultrasound shows gallbladder sludge without evidence of cholecystitis. Pain improved after treatment. The patient was advised of continued supportive care for his symptoms including dietary changes and NSAIDs. He was also advised of acid reducing medications that he can take at home. He will follow-up outpatient with his primary care provider and verbalizes understanding of discharge plan and strict return precautions. . 07/29 13:35 Order name: CBC with Diff sd2 07/29 13:35 Order name: CMP sd2 07/29 13:35 Order name: Lipase sd2 07/29 13:35 Order name: Urine Microscopic Only sd2 07/29 14:12 Order name: Urine Dipstick-Ancillary; Complete Time: 14:30 EDMS 07/29 14:19 Order name: CBC with Automated Diff; Complete Time: 14:30 EDMS 07/29 13:35 Order name: US Abdomen Limited sd2 07/29 14:36 Order name: Comprehensive Metabolic Panel; Complete Time: 16:40 EDMS 07/29 14:36 Order name: Lipase; Complete Time: 16:40 EDMS 07/29 15:28 Order name: Urine Microscopic Only; Complete Time: 16:40 EDMS 07/29 15:31 Order name: US; Complete Time: 16:40 EDMS 07/29 13:35 Order name: Urine Dipstick-Ancillary (obtain specimen); Complete Time: 14:02 sd2 Administered Medications: 14:02 Drug: Ketorolac 15 mg Route: IVP; Site: left antecubital; jl7 17:27 Follow up: Response: No adverse reaction bp 14:02 Drug: NS 0.9% 500 ml Route: IV; Rate: bolus; Site: left antecubital; jl7 17:29 Follow up: IV Status: Completed infusion; IV Intake: 500ml bp 17:20 Drug: Ketorolac 15 mg Route: IVP; Site: left antecubital; bp 17:27 Follow up: Response: No adverse reaction bp Disposition Summary: 07/29/22 17:03 Discharge Ordered Location: Home sd2 Problem: new sd2 Symptoms: have improved sd2 Condition: Stable sd2 Diagnosis - Right upper quadrant abdominal pain sd2 - Gallbladder sludge sd2 Followup: sd2 - With: Hernesto Foote MD - When: 2 - 3 days - Reason: Recheck today's complaints, Continuance of care, Re-evaluation by your physician Discharge Instructions: - Discharge Summary Sheet sd2 - Biliary Colic, Adult sd2 - Gallbladder Eating Plan sd2 Forms: - Work release form eb - Medication Reconciliation Form sd2 - Thank You Letter sd2 - Antibiotic Education sd2 - Prescription Opioid Use sd2 Prescriptions: - Ibuprofen 800 mg Oral Tablet - take 1 tablet by ORAL route every 8 hours As needed take with food; 20 tablet; sd2 Refills: 0, Product Selection Permitted - Pepcid 20 mg Oral Tablet - take 1 tablet by ORAL route every 12 hours for 5 days; 10 tablet; Refills: 0, sd2 Product Selection Permitted Signatures: Dispatcher [employer] Ban Brown RN RN jl7 Ernesto Charles RN RN Janett Hernandez RN RN [email or web address] Amada Juan MD MD 2
[2022-07-29 17:38] VITALS: TEMP 99.2
[2022-07-29 17:44] VITALS: O2SAT 100
[2022-07-29 17:50] VITALS: BP 103/52
== END 2022-07-29 17:29 | disposition home or self-care (01) ==
LOC: ER 13:13
DX: R10.11 Right upper quadrant pain (principal); K82.8 Other specified diseases of gallbladder
CPT/HCPCS: 36415; 76705; 80053; 81003; 81015; 83690; 85025; 96361; 96374; 99284; J7040

== ENCOUNTER 2023-01-17 20:11 | Emergency (ER) | payer SELFPAY ==
--- OUTSIDE RECORDS SUMMARY | 2023-01-17 20:19 | XMS REPORT | Continuity of Care Document ---
:2000 Author Organization [facility] t Address [address] [place] [address] Care Team Providers Name Role Phone Pcp, Patient Does Not Have A Primary Care Physician [phone] Ирина Mae MD Attending Clinician JOSLYN DAVIS Attending Clinician Unavailable Doctor Unassigned, [place] Attending Clinician Unavailable Pob, [facility] Attending Clinician Unavailable Yonis Ames MD Attending Clinician YONIS AMES Attending Clinician Unavailable Lab, [facility] Attending Clinician Unavailable Joslyn Davis MD Attending Clinician NAHID MENDIOLA Attending Clinician Unavailable Nahid Mendiola MD Attending Clinician Calvin Cadet MD Attending Clinician KT MACIAS Attending Clinician Unavailable Kt Macias MD Attending Clinician Evelyn Chaudhary Attending Clinician Maria Ines Rosen Attending Clinician MARIA INES CHICAS Attending Clinician Unavailable Isac Rodrigez MD Attending Clinician KAMILA CASTILLO Attending Clinician Unavailable Deepthi Jenkins Attending Clinician DEEPTHI SCALES Attending Clinician Unavailable Demetria Saunders Attending Clinician Macey Mena Attending Clinician Carol Hilario MD Attending Clinician MACEY KAMARA Attending Clinician Unavailable MORRICAL, NAHID Negrete Admitting Clinician Unavailable KT MACIAS Admitting Clinician Unavailable Carol Hilario MD Admitting Clinician Problems Condition Condition Condition Status Onset Resolution Last Treating Co mments Source Name Details Category Date Date Treatment Clinician Date Obesity Obesity Disease Active Univers (BMI (BMI 8-07 ity of 30-39.9) 30-39.9) 00:00: [address] Acute Acute Disease Active Univers appendicit appendicit 8 it y of is, is, 00:00: [place] uncomplica uncomplica 00 Me dical seamus seamus [place] Allergies, Adverse Reactions, Alerts Allergy Allergy Status Severity Reaction(s) Onset Inactive Treating Comm ents Source Name Type Date Date Clinician NO KNOWN Drug Active Univers ALLERGIE Class ity of S [facility] Social History Social Habit Start Date Stop Date Quantity Comments Source History of Smokes tobacco [facility] tobacco use daily [facility] Exposure to 2022-07-31 2022-08-10 Not sure [facility] SARS-CoV-2 00:00:00 12:12:00 [facility] (event) Branch Tobacco use and 2020-06-04 2020-06-04 User of smokeless Un iversity of exposure 00:00:00 00:00:00 tobacco [facility] Tobacco Comment 2020-06-04 2020-06-04 vapes daily, Univers ity of 00:00:00 00:00:00 smokless tobacco [facility] dical twice weekly per Branch patient report Sex Assigned At [birth year] Universit y of 00:00:00 00:00:00 [facility] Smoking Status Start Date Stop Date Source Smokes tobacco daily 2020-06-04 00:00:00 Univers ity [facility] Medications Ordered Filled Start Stop Current Ordering Indication Dosage Frequency Signature Comments Components Source Medication Medication Date Date Medication? Clinician (SIG) Name Name pantoprazol 2021-10- No [id number] 40mg Take 1 Univers e 40 mg EC 0-13 11-13 tablet by ity of tablet 00:00: 05:59 mouth in [place] 00 :00 the [facility] morning Branch and 1 tablet in the evening. Do all this for 30 days. pantoprazol 2021-10- No [id number] 40mg Take 1 Univers e 40 mg EC 0-13 11-13 tablet by ity of tablet 00:00: 05:59 mouth in [place] 00 :00 the [facility] morning Branch and 1 tablet in the evening. Do all this for 30 days. pantoprazol 2021-10- No [id number] 40mg Take 1 Univers e 40 mg EC 0-13 11-13 tablet by ity of tablet 00:00: 05:59 mouth in [place] 00 :00 the [facility] morning Branch and 1 tablet in the evening. Do all this for 30 days. pantoprazol 2021-10- No [id number] 40mg Take 1 Univers e 40 mg EC 0-13 11-13 tablet by ity of tablet 00:00: 05:59 mouth in [place] 00 :00 the [facility] Branch and 1 tablet in the evening. Do all this for 30 days. pantoprazol 2021-10- No [id number] 40mg Take 1 Univers e 40 mg EC 0-13 11-13 tablet by ity of tablet 00:00: 05:59 mouth in [place] 00 :00 the [facility] Branch and 1 tablet in the evening. Do all this for 30 days. pantoprazol 2021-10- No [id number] 40mg Take 1 Univers e 40 mg EC 0-13 11-13 tablet by ity of tablet 00:00: 05:59 mouth in [place] 00 :00 the [facility] Branch and 1 tablet in the evening. Do all this for 30 days. pantoprazol 2021-10- No [id number] 40mg Take 1 Univers e 40 mg EC 0-13 11-13 tablet by ity of tablet 00:00: 05:59 mouth in [place] 00 :00 the [facility] Branch and 1 tablet in the evening. Do all this for 30 days. pantoprazol 2021-10- No [id number] 40mg Take 1 Univers e 40 mg EC 0-13 11-13 tablet by ity of tablet 00:00: 05:59 mouth in [place] 00 :00 the [facility] Branch and 1 tablet in the evening. Do all this for 30 days. maalox:diph 2021-10 No 15mL 15 mL, Uni vers enhydrAMINE 0-10 10-10 Oral, ity of :lidocaine 11:45: 10:48 ONCE, 1 [place] 2 % viscous 00 :00 dose, On Medi libra 1:1:1 Mon Branch (FIRST-MOUT 08/07/22 HW[facility] BLM) at 0645, oral Routine suspension 15 mL ondansetron 2021-10 No 8mg 8 mg, Univ ers (ZOFRAN-ODT 0-10 10-10 Oral, ity of ) 11:30: 10:48 ONCE, 1 [place] disintegrat 00 :00 dose, On [facility] ing tablet Sun Branch 8 mg 08/07/22 at 0630, Routine ondansetron 2021-10 Yes [id number] 4mg Take 1 Univers 4 mg 0-10 tablet by ity of disintegrat 00:00: mouth [place] ing tablet 00 every 8 Medica l (eight) Branch hours as needed for Nausea and Vomiting (N/V) or N/V unresponsi ve to Promethazi ne. proMETHazin 2021-10 Yes [id number] 25mg Take 1 Univers e 25 mg 0-10 tablet by ity of tablet 00:00: mouth [place] 00 every 6 Medical (six) Branch hours as needed for Nausea and Vomiting (N/V) or N/V unresponsi ve to Ondansetro n. ondansetron 2021-10 Yes [id number] 4mg Take 1 Univers 4 mg 0-10 tablet by ity of disintegrat 00:00: mouth [place] ing tablet 00 every 8 Medica l (eight) Branch hours as needed for Nausea and Vomiting (N/V) or N/V unresponsi ve to Promethazi ne. amoxicillin 2021-10 Yes TAKE TWO Un [facility] 500 mg 0-10 (2) ity of capsule 00:00: [place] 00 BY MOUTH Medical TWICE A Branch DAY IN [facility] WITH LANSOPRAZO LE AND CLARITHROM YCIN FOR 14 DAYS. clarithromy 2021-10 Yes 500mg Take 500 U nivers breann 500 mg 0-10 mg by ity of tablet 00:00: mouth in [place] 00 the Medical morning Branch and 500 mg in the evening. pantoprazol 2021-10 Yes TAKE ONE Un [facility] e 40 mg EC 0-10 (1) ity of tablet 00:00: TABLET(S) [place] 00 BY MOUTH Medical DAILY FOR Branch GASTRIC REFLUX. ondansetron 2021-10 Yes [id number] 4mg Take 1 Univers 4 mg 0-10 tablet by ity of disintegrat 00:00: mouth [place] ing tablet 00 every 8 Medica l (eight) Branch hours as needed for Nausea and Vomiting (N/V) or N/V unresponsi ve to Promethaz ne. amoxicillin 2021-10 Yes TAKE TWO Un [place] 500 mg 0-10 (2) ity of capsule 00:00: CAPSULE(S) [place] 00 BY MOUTH Medical TWICE A Branch DAY IN [facility] WITH LANSOPRAZO LE AND CLARITHROM YCIN FOR 14 DAYS. clarithromy 2021-10 Yes 500mg Take 500 U nivers [place] 500 mg 0-10 mg by ity of tablet 00:00: mouth in [place] 00 the Medical morning Branch and 500 mg in the evening. pantoprazol 2021-10 Yes TAKE ONE Un [facility] e 40 mg EC 0-10 (1) ity of tablet 00:00: TABLET(S) [place] 00 BY MOUTH Medical DAILY FOR Branch GASTRIC REFLUX. ondansetron 2021-10 Yes [id number] 4mg Take 1 Univers 4 mg 0-10 tablet by ity of disintegrat 00:00: mouth [place] ing tablet 00 every 8 Medica l (eight) Branch hours as needed for Nausea and Vomiting (N/V) or N/V [facility] pantoprazol 2021-10 Yes TAKE ONE Un [facility] e 40 mg EC 0-10 (1) ity of tablet 00:00: TABLET(S) [place] 00 BY MOUTH Medical DAILY FOR Branch GASTRIC REFLUX. ondansetron 2021-10 Yes [id number] 4mg Take 1 Univers 4 mg 0-10 tablet by ity of disintegrat 00:00: mouth [place] ing tablet 00 every 8 Medica l (eight) Branch hours as needed for Nausea and Vomiting (N/V) or N/V unresponsi ve to Promethaz ne. pantoprazol 2021-10 Yes TAKE ONE Un [facility] e 40 mg EC 0-10 (1) ity of tablet 00:00: TABLET(S) [place] 00 BY MOUTH Medical DAILY FOR Branch GASTRIC REFLUX. ondansetron 2021-10 Yes [id number] 4mg Take 1 Univers 4 mg 0-10 tablet by ity of disintegrat 00:00: mouth [place] ing tablet 00 every 8 Medica l (eight) Branch hours as needed for Nausea and Vomiting (N/V) or N/V unresponsi ve to [facility]. pantoprazol 2021-10 Yes TAKE ONE Un [facility] e 40 mg EC 0-10 (1) ity of tablet 00:00: TABLET(S) [place] 00 BY MOUTH Medical DAILY FOR Branch GASTRIC REFLUX. ondansetron 2021-10 Yes [id number] 4mg Take 1 Univers 4 mg 0-10 tablet by ity of disintegrat 00:00: mouth [place] ing tablet 00 every 8 Medica l (eight) Branch hours as needed for Nausea and Vomiting (N/V) or N/V unresponsi ve to [facility]. pantoprazol 2021-10 Yes TAKE ONE Un [facility] e 40 mg EC 0-10 (1) ity of tablet 00:00: TABLET(S) [place] 00 BY MOUTH Medical DAILY FOR Branch GASTRIC REFLUX. ondansetron 2021-10 Yes [id number] 4mg Take 1 Univers 4 mg 0-10 tablet by ity of disintegrat 00:00: mouth [place] ing tablet 00 every 8 Medica l (eight) Branch hours as needed for Nausea and Vomiting (N/V) or N/V unresponsi ve to [facility]. pantoprazol 2021-10 Yes TAKE ONE Un [facility] e 40 mg EC 0-10 (1) ity of tablet 00:00: TABLET(S) [place] 00 BY MOUTH Medical DAILY FOR Branch GASTRIC REFLUX. ondansetron 2021-10 Yes [id number] 4mg Take 1 Univers 4 mg 0-10 tablet by ity of disintegrat 00:00: mouth [place] ing tablet 00 every 8 Medica l (eight) Branch hours as needed for Nausea and Vomiting (N/V) or N/V unresponsi ve to [facility] pantoprazol 2021-10 Yes TAKE ONE Un [facility] e 40 mg EC 0-10 (1) ity of tablet 00:00: TABLET(S) [place] 00 BY MOUTH Medical DAILY FOR Branch GASTRIC REFLUX. ondansetron 2021-10 Yes [id number] 4mg Take 1 Univers 4 mg 0-10 tablet by ity of disintegrat 00:00: mouth [place] ing tablet 00 every 8 Medica l (eight) Branch hours as needed for Nausea and Vomiting (N/V) or N/V unresponsi ve to Promethazi ne. pantoprazol 2021-10 Yes TAKE ONE Un [facility] e 40 mg EC 0-10 (1) ity of tablet 00:00: TABLET(S) [place] 00 BY MOUTH Medical DAILY FOR Branch GASTRIC REFLUX. proMETHazin 2021-10- No [id number] 25mg Take 1 Univers e 25 mg 0-10 10-13 tablet by ity of tablet 00:00: 00:00 mouth [place] 00 :00 every 6 Medical (six) Branch hours as needed for Nausea and Vomiting (N/V) or N/V unresponsi ve to Ondansetro n. amoxicillin 2021-10 No TAKE TWO U nivers 500 mg 0-10 10-13 (2) ity of capsule 00:00: 00:00 CAPSULE(S) [place] 00 :00 BY MOUTH Medical TWICE A Branch DAY IN [facility] WITH LANSOPRAZO LE AND CLARITHROM YCIN FOR 14 DAYS. clarithromy 2021-10- No 500mg Take 500 Univers breann 500 mg 0-10 10-13 mg by ity of tablet 00:00: 00:00 mouth in [place] 00 :00 the Medical morning Branch and 500 mg in the evening. proMETHazin 2021-10- No [id number] 25mg Take 1 Univers e 25 mg 0-10 10-13 tablet by ity of tablet 00:00: 00:00 mouth [place] 00 :00 every 6 Medical (six) Branch hours as needed for Nausea and Vomiting (N/V) or N/V unresponsi ve to Ondansetro n. amoxicillin 2021-10- No TAKE TWO U nivers 500 mg 0-10 10-13 (2) ity of capsule 00:00: 00:00 CAPSULE(S) [place] 00 :00 BY MOUTH Medical TWICE A Branch DAY IN [facility] WITH LANSOPRAZO LE AND CLARITHROM YCIN FOR 14 DAYS. clarithromy 2021-10- No 500mg Take 500 Univers breann 500 mg 0-10 10-13 mg by ity of tablet 00:00: 00:00 mouth in [place] 00 :00 the Medical morning Branch and 500 mg in the evening. proMETHazin 2021-10 No [id number] 25mg Take 1 Univers e 25 mg 0-10 10-13 tablet by ity of tablet 00:00: 00:00 mouth [place] 00 :00 every 6 Medical (six) Branch hours as needed for Nausea and Vomiting (N/V) or N/V unresponsi ve to Ondansetro n. amoxicillin 2021-10 No TAKE TWO U nivers 500 mg 0-10 10-13 (2) ity of capsule 00:00: 00:00 CAPSULE(S) [place] 00 :00 BY MOUTH Medical TWICE A Branch DAY IN [facility] WITH LANSOPRAZO LE AND CLARITHROM YCIN FOR 14 DAYS. clarithromy 2021-10 500mg Take 500 Univers breann 500 mg 0-10 10-13 mg by ity of tablet 00:00: 00:00 mouth in [place] 00 :00 the Medical morning Branch and 500 mg in the evening. iopamidol 2021-10 No [id number] 100mL 100 mL, Univers (ISOVUE 0-09 10-09 Intravenou ity o f 370-500 mL) 03:15: 02:16 s, ONCE, 1 [place] injection 00 :00 dose, On Medica l 100 mL Sat Branch 08/05/22 at 2215, Routine NaCl 0.9% 2021-10 Yes 1000mL at 999 Univ ers (NS) IV 0-09 mL/hr, ity of infusion 02:45: Intravenou [place] 1,000 mL 00 s, Medical CONTINUOUS Branch , Starting on 08/05/22 at 2145, Until Discontinu ed, KIT FENTanyl PF 2021-10 Yes 50ug 50 mcg, Uni vers (SUBLIMAZE 0-09 Slow IV ity of (PF)) 02:07: Push, [place] injection 29 Q30MIN Medical 50 mcg PRN, 3 Branch doses, Starting on 08/05/22 at 2107, Until Discontinu ed, KIT, Pain (scale 7-10) maalox:diph 2021-10 No 15mL 15 mL, Uni vers enhydrAMINE 0-09 10-09 Oral, ity of :lidocaine 01:30: 01:25 ONCE, 1 [place] 2 % viscous 00 :00 dose, On Medi libra 1:1:1 Sat Branch (FIRST-MOUT 08/05/22 at [facility]) 2029, oral Routine suspension 15 mL ketorolac 2021-10- No 30mg 30 mg, Unive rs (TORADOL) 008-06 Slow IV ity of injection 01:15: 00:22 Push, [place] 30 mg 00 :00 ONCE, 1 Medical dose, On Branch 08/05/22 at 2015, Routine sucralfate 2021-10 Yes [id number] 1g Take 1 Univers 1 gram 0-08 tablet by ity of tablet 00:00: mouth [place] 00 before Medical meals and Branch at bedtime. sucralfate 2021-10 Yes [id number] 1g Take 1 Univers 1 gram 0-08 tablet by ity of tablet 00:00: mouth [place] 00 before Medical meals and Branch at bedtime. omeprazole 2021-10- No [id number] 20mg Take 1 Univers 20 mg 0-08 10-23 capsule by ity of capsule 00:00: 04:59 mouth in [place] 00 :00 the Medical morning Branch for 14 days. omeprazole 2021-10- No [id number] 20mg Take 1 Univers 20 mg 0-08 10-23 capsule by ity of capsule 00:00: 04:59 mouth in [place] 00 :00 the Medical morning Branch for 14 days. sucralfate 2021-10- No [id number] 1g Take 1 Univers 1 gram 0-08 10-13 tablet by ity of tablet 00:00: 00:00 mouth [place] 00 :00 before Medical meals and Branch at bedtime. omeprazole 2021-10- No [id number] 20mg Take 1 Univers 20 mg 0-08 10-13 capsule by ity of capsule 00:00: 00:00 mouth in [place] 00 :00 the Medical morning Branch for 14 days. sucralfate 2021-10- No [id number] 1g Take 1 Univers 1 gram 0-08 10-13 tablet by ity of tablet 00:00: 00:00 mouth [place] 00 :00 before Medical meals and Branch at bedtime. omeprazole 2021-10- No [id number] 20mg Take 1 Univers 20 mg 0-08 10-13 capsule by ity of capsule 00:00: 00:00 mouth in [place] 00 :00 the Medical morning Branch for 14 days. sucralfate 2021-10- No [id number] 1g Take 1 Univers 1 gram 0-08 10-13 tablet by ity of tablet 00:00: 00:00 mouth [place] 00 :00 before Medical meals and Branch at bedtime. omeprazole 2021-10- No [id number] 20mg Take 1 Univers 20 mg 0-08 10-13 capsule by ity of capsule 00:00: 00:00 mouth in [place] 00 :00 the Medical morning Branch for 14 days. ketorolac 2021-10- No 30mg 30 mg, Unive rs (TORADOL) 0- 10- Slow IV ity of injection 03:00: 02:02 Push, [place] 30 mg 00 :00 ONCE, 1 Medical dose, On Branch 07/28/22 at 2200, Routine sodium 2021-10 Yes 5mL 5 mL, Univers chloride 0-01 Intravenou ity o f (NS) 01:25: s, PRN, [place] injection 5 01 Starting Medi libra mL on Fri Branch 07/28/22 at 2025, Until Discontinu ed, Routine, IV line flushing famotidine 2021-10 Yes TAKE ONE Uni vers 20 mg 0-01 (1) ity of tablet 00:00: TABLET(S) BY [facility] Medical EVERY Branch TWELVE HOURS FOR FIVE DAYS. famotidine 2021-10 Yes TAKE ONE Uni vers 20 mg 0-01 (1) ity of tablet 00:00: TABLET(S) [place] BY MOUTH Medical EVERY Branch TWELVE HOURS FOR FIVE DAYS. famotidine 2021-10 Yes TAKE ONE Uni vers 20 mg 0-01 (1) ity of tablet 00:00: TABLET(S) [place] BY MOUTH Medical EVERY Branch TWELVE HOURS FOR FIVE DAYS. famotidine 2021-10 Yes TAKE ONE Uni vers 20 mg 0-01 (1) ity of tablet 00:00: TABLET(S) [place] BY MOUTH Medical EVERY Branch TWELVE HOURS FOR FIVE DAYS. famotidine 2021-10 Yes TAKE ONE Uni vers 20 mg 0-01 (1) ity of tablet 00:00: TABLET(S) [place] BY MOUTH Medical EVERY Branch TWELVE HOURS FOR FIVE DAYS. famotidine 2021-10 Yes TAKE ONE Uni vers 20 mg 0-01 (1) ity of tablet 00:00: TABLET(S) [place] 00 BY [facility] EVERY [place] TWELVE HOURS FOR FIVE DAYS. famotidine 2021-10 Yes TAKE ONE Uni vers 20 mg 0-01 (1) ity of tablet 00:00: TABLET(S) [place] 00 BY [facility] EVERY [place] TWELVE HOURS FOR FIVE DAYS. famotidine 2021-10 Yes TAKE ONE Uni vers 20 mg 0-01 (1) ity of tablet 00:00: TABLET(S) [place] 00 BY [facility] EVERY [place] TWELVE HOURS FOR FIVE DAYS. famotidine 2021-10 Yes TAKE ONE Uni vers 20 mg 0-01 (1) ity of tablet 00:00: TABLET(S) [place] 00 BY [facility] EVERY [place] TWELVE HOURS FOR FIVE DAYS. naproxen Yes [id number] 550mg Take 1 U nivers sodium 550 9-30 tablet by ity of mg tablet 00:00: mouth in [place] 00 the Medical morning Branch and 1 tablet in the evening. Take with meals. naproxen Yes [id number] 550mg Take 1 U nivers sodium 550 9-30 tablet by ity of mg tablet 00:00: mouth in [place] 00 the Medical morning Branch and 1 tablet in the evening. Take with meals. naproxen 0 Yes [id number] 550mg Take 1 U nivers sodium 550 9-30 tablet by ity of mg tablet 00:00: mouth in [place] 00 the Medical morning Branch and 1 tablet in the evening. Take with meals. naproxen 0 2021- No [id number] 550mg Take 1 Univers sodium 550 9-30 10-13 tablet by ity of mg tablet 00:00: 00:00 mouth in [place] 00 :00 the Medical morning Branch and 1 tablet in the evening. Take with meals. naproxen 2021-0 2- No [id number] 550mg Take 1 Univers sodium 550 9-30 10-13 tablet by ity of mg tablet 00:00: 00:00 mouth in [place] 00 :00 the Medical morning Branch and 1 tablet in the evening. Take with meals. naproxen 0 2021- No [id number] 550mg Take 1 Univers sodium 550 9-30 10-13 tablet by ity of mg tablet 00:00: 00:00 mouth in [place] 00 :00 the Medical morning Branch and 1 tablet in the evening. Take with meals. HYDROcodone 0 2020- No 1{tbl} 1 tablet, Univers -acetaminop 2-10 02-10 Oral, ity of hen (NORCO 05:15: 04:18 ONCE, 1 [place] 5) 5-325 mg 00 :00 dose, Tue Med ical tablet 1 12/07/20 at Branch tablet 2315, KIT ondansetron 2020- No 4mg 4 mg, Slow Univers (ZOFRAN 2-03 02-03 IV Push, ity of (PF)) 07:30: 06:35 ONCE, 1 [place] injection 4 00 :00 dose, Sun Med ical mg 12/01/20 at Branch 0130, KIT morpHINE 2020- No 4mg 4 mg, Slow Un [facility] injection 4 12-01 02-03 IV Push, ity of mg 07:30: 06:35 ONCE, 1 [place] 00 :00 dose, Wed Medical 12/01/20 at Branch 0130, STAT ibuprofen 2020-0 Yes [id number] 800mg Take 1 Univers 800 mg 2-03 [id number] tablet by ity of tablet 00:00: mouth [place] 00 every 8 Medical (eight) Branch hours. ibuprofen 2020-0 Yes [id number] 800mg Take 1 Univers 800 mg 2-03 [id number] tablet by ity of tablet 00:00: mouth [place] 00 every 8 Medical (eight) Branch hours. ibuprofen 2020-0 Yes [id number] 800mg Take 1 Univers 800 mg 2-03 [id number] tablet by ity of tablet 00:00: mouth [place] 00 every 8 Medical (eight) Branch hours. ibuprofen 2020-0 Yes [id number] 800mg Take 1 Univers 800 mg 2-03 [id number] tablet by ity of tablet 00:00: mouth [place] 00 every 8 Medical (eight) Branch hours. ibuprofen 2020-0 Yes [id number] 800mg Take 1 Univers 800 mg 2-03 [id number] tablet by ity of tablet 00:00: mouth [place] 00 every 8 Medical (eight) Branch hours. ibuprofen 2020-0 Yes [id number] 800mg Take 1 Univers 800 mg 2-03 [id number] tablet by ity of tablet 00:00: mouth [place] 00 every 8 Medical (eight) Branch hours. ibuprofen 2020-0 Yes [id number] 800mg Take 1 Univers 800 mg 2-03 [id number] tablet by ity of tablet 00:00: mouth [place] 00 every 8 Medical (eight) Branch hours. ibuprofen 2020-0 Yes [id number] 800mg Take 1 Univers 800 mg 2-03 [id number] tablet by ity of tablet 00:00: mouth [place] 00 every 8 Medical (eight) Branch hours. ibuprofen 2020-0 Yes [id number] 800mg Take 1 Univers 800 mg 2-03 [id number] tablet by ity of tablet 00:00: mouth [place] 00 every 8 Medical (eight) Branch hours. ibuprofen 2020-0 Yes [id number] 800mg Take 1 Univers 800 mg 2-03 [id number] tablet by ity of tablet 00:00: mouth [place] 00 every 8 Medical (eight) Branch hours. ibuprofen 2020-0 2021- No [id number] 800mg Take 1 Univers 800 mg 2-03 10-13 [id number] tablet by ity o f tablet 00:00: 00:00 mouth [place] 00 :00 every 8 Medical (eight) Branch hours. ibuprofen 2020-0 2021- No [id number] 800mg Take 1 Univers 800 mg 2-03 10-13 [id number] tablet by ity o f tablet 00:00: 00:00 mouth [place] 00 :00 every 8 Medical (eight) Branch hours. ibuprofen 2020-0 2- No [id number] 800mg Take 1 Univers 800 mg 2-03 10-13 [id number] tablet by ity o f tablet 00:00: 00:00 mouth [place] 00 :00 every 8 Medical (eight) Branch hours. morpHINE 2019-0 2020- No 4mg 4 mg, Slow Un [place] injection 4 06-05 IV Push, ity of mg 10:49: 11:[address] [facility], [place] 49 :49 Starting Medical 06/05/20 Branch at 0549, Until 06/05/20 at 0648, Routine, Pain (scale 7-10) morpHINE 2020-0 2020- No 4mg 4 mg, Slow Un [place] injection 4 06-05 IV Push, ity of mg 04:46: 05:14 Q6HPRN, [place] 55 :00 Starting Medical 06/04/20 Branch at 2346, Until 06/05/20 at 0014, Routine, Pain (scale 7-10) HYDROmorpho 2020-0 2020- No .5mg 0.5 mg, Un [place] ne 8-08 08-08 Slow IV ity of (DILAUDID) 01:00: 01:07 Push, [place] injection 00 :00 ONCE, 1 Medical 0.5 mg dose, Fri Branch 06/04/20 at 2000, Routine
Use approved by (Faculty): ADC PROVIDER simethicone 2020-0 Yes 80mg 80 mg, [facility] ers (GAS RELIEF 8-08 Oral, ity of [...] Indication s: acute pain ibuprofen 2020-0 Yes [id number] 600mg Take 1 U nivers 600 mg [...] Indication s: acute pain ibuprofen 2020-0 Yes [id number] 600mg Take 1 U nivers 600 mg [...] Indication s: acute pain ibuprofen 2020-0 Yes [id number] 600mg Take 1 U nivers 600 mg [...] Indication s: acute pain ibuprofen 2020-0 Yes [id number] 600mg Take 1 U nivers 600 mg [...] Indication s: acute pain ibuprofen 2020-0 Yes [id number] 600mg Take 1 U nivers 600 mg [...] Indication s: acute pain ibuprofen 2020-0 Yes [id number] 600mg Take 1 U nivers 600 mg [...] Indication s: acute pain ibuprofen 2020-0 Yes [id number] 600mg Take 1 U nivers 600 mg [...] Indication s: acute pain ibuprofen 2020-0 Yes [id number] 600mg Take 1 U nivers 600 mg [...] Indication s: acute pain ibuprofen 2020-0 Yes [id number] 600mg Take 1 U nivers 600 mg [...] Indication s: acute pain ibuprofen 2020-0 Yes [id number] 600mg Take 1 U nivers 600 mg [...] Pain (scale 7-10). Indication s: acute pain HYDROcodone 2020-0 Yes [id number] 1{tbl} Take 1 Un [facility] -acetaminop 8-08 tablet by ity of hen 5-325 00:00: mouth [place] mg tablet 00 every 6 Medical (six) Branch hours as needed for Pain (scale 7-10). Indication s: acute pain HYDROcodone 2020-0 Yes [id number] 1{tbl} Take 1 Un [facility] -acetaminop 8-08 tablet by ity of hen 5-325 00:00: mouth [place] mg tablet 00 every 6 Medical (six) Branch hours as needed for Pain (scale 7-10). Indication s: acute pain HYDROcodone 2020-0 Yes [id number] 1{tbl} Take 1 Un [facility] -acetaminop 8-08 tablet by ity of hen 5-325 00:00: mouth [place] mg tablet 00 every 6 Medical (six) Branch hours as needed for Pain (scale 7-10). Indication s: acute pain HYDROcodone 2020-0 Yes [id number] 1{tbl} Take 1 Un [facility] -acetaminop 8-08 tablet by ity of hen 5-325 00:00: mouth [place] mg tablet 00 every 6 Medical (six) Branch hours as needed for Pain (scale 7-10). Indication s: acute pain HYDROcodone 2020-0 Yes [id number] 1{tbl} Take 1 Un [facility] -acetaminop 8-08 tablet by ity of hen 5-325 00:00: mouth [place] mg tablet 00 every 6 Medical (six) Branch hours as needed for Pain (scale 7-10). Indication s: acute pain HYDROcodone 2020-0 Yes [id number] 1{tbl} Take 1 Un evangelista -acetaminop 8-08 tablet by ity of hen 5-325 00:00: mouth [place] mg tablet 00 every 6 Medical (six) Branch hours as needed for Pain (scale 7-10). Indication s: acute pain HYDROcodone 2020-0 Yes [id number] 1{tbl} Take 1 Un evangelista -acetaminop 8-08 tablet by ity of hen 5-325 00:00: mouth [place] mg tablet 00 every 6 Medical (six) Branch hours as needed for Pain (scale 7-10). Indication s: acute pain HYDROcodone 2020-0 Yes 4647 1{tbl} Take 1 Un evangelista -acetaminop 8-08 tablet by ity of hen 5-325 00:00: mouth [place] mg tablet 00 every 6 Medical (six) Branch hours as needed for Pain (scale 7-10). Indication s: acute pain HYDROcodone 2020-0 Yes 4647 1{tbl} Take 1 Un evangelista -acetaminop 8-08 tablet by ity of hen 5-325 00:00: mouth [place] mg tablet 00 every 6 Medical (six) Branch hours as needed for Pain (scale 7-10). Indication s: acute pain ibuprofen 2020-0 Yes [id number] 600mg Take 1 U nivers 600 mg [...] Indication s: acute pain ibuprofen 2020-0 Yes [id number] 600mg Take 1 U nivers 600 mg [...] Indication s: acute pain ibuprofen 2020-0 Yes [id number] 600mg Take 1 U nivers 600 mg 8-08 tablet by ity of tablet 00:00: mouth [place] 00 every 6 Medical (six) Branch hours as needed for Pain (scale 4-6). ibuprofen 2020-0 2021- No [id number] 600mg Take 1 Univers 600 mg 8-08 10-13 tablet by ity of tablet 00:00: 00:00 mouth [place] 00 :00 every 6 Medical (six) Branch hours as needed for Pain (scale 4-6). ibuprofen 2020-0 2021- No [id number] 600mg Take 1 Univers 600 mg 8-08 10-13 tablet by ity of tablet 00:00: 00:00 mouth [place] 00 :00 every 6 Medical (six) Branch hours as needed for Pain (scale 4-6). ibuprofen 2020-0 2021- No [id number] 600mg Take 1 Univers 600 mg 8-08 10-13 tablet by ity of tablet 00:00: 00:00 mouth [place] 00 :00 every 6 Medical (six) Branch hours as needed for Pain (scale 4-6). HYDROcodone 2020-0 2020- No 4647 1{tbl} Take 1 U nivers -acetaminop 06-05 tablet by it y of hen 5-325 00:00: 00:00 mouth [place] mg tablet 00 :00 every 6 Medical (six) Branch hours as needed for Pain (scale 7-10) for up to 7 days. Indication s: acute pain ibuprofen 2020-0 Yes 600mg 600 mg, Univ ers (IBU) 06-04 Oral, Q6H, ity of tablet 600 23:00: First dose [place] mg 00 on Sun Medical 06/04/20 at Branch 1800, Until Discontinu ed, Routine acetaminoph 2019-0 Yes 500mg 500 mg, Un evangelista en 06-04 Oral, Q6H, ity of (TYLENOL) 23:00: [place] tablet 500 00 on Sun Medical mg 06/04/20 at Branch 1800, Until Discontinu ed, Routine HYDROmorpho 2019- 2020- No .2mg 0.2 mg, Un evangelista ne 06-04 Slow IV ity of (DILAUDID) 22:40: 22:59 Push, [place] injection 39 :26 Q5MIN PRN, Medi libra 0.2 mg 10 doses, Branch Starting Sun06/04/20 at 1740, Until Sun06/04/20 at 1759, Routine, Pain (scale 7-10), PACU
Us e approved by (Faculty): PACU USE -ANESTHESI A SERVICE-HY DROMORPHON E INJECTIONS FENTanyl PF 2019- 2020- No 25ug 25 mcg, Un evangelista [...] 2020-0 Yes 50mg 50 mg, Univers (ULTRAM) 8-07 Oral, ity of tablet 50 21:03: Q6HPRN, [place] mg 36 Starting Medical Sun06/04/20 Branch at 1603, Until Discontinu ed, Routine, Pain (scale 1-3) piperacilli 2019-0 2020- No 3.375g 3.375 g, Univers n-tazobacta 06-04-08 IV ity of m (ZOSYN) 10:00: 16:00 [...] 1000mL at 125 Uni vers (NS) IV 06-04-07 mL/hr, IV ity of infusion 05:45: 22:52 Infusion, [place] as 1,000 mL 00 :44 CONTINUOUS Medic al , Starting Branch Sun06/04/20 at 0045, Until Sun06/04/20 at 1752, Routine ondansetron 2019-0 Yes 4mg 4 mg, Slow Univers (ZOFRAN 06-04 IV Push, ity of (PF)) 05:42: Q6HPRN, [place] injection 4 45 Starting Medi libra mg Sun06/04/20 Branch at 0042, Until Discontinu ed, Routine, Nausea and Vomiting (N/V) morpHINE 2019-0 2020- No 2mg 2 mg, Slow Un evangelista injection 2 06-04 IV Push, ity of mg 05:42: 21:04 Q4HPRN, [place] 41 :20 Starting Medical Sun06/04/20 Branch at 0042, Until Sun06/04/20 at 1604, Routine, Pain (scale 7-10) piperacilli 2020-0 2020- No 3.375g 3.375 g, Univers n-tazobacta 06-04 IV ity of m (ZOSYN) 04:15: 03:58 Piggyback, [place] 3.375 g in 00 :00 ONCE, 1 Medica l NaCl 0.9% dose, [place] Branc h (NS) 100 mL 06/03/20 at MINI-BAG 2315, 100 mL
Reas on for Anti-Infec tive: Documented Infection< br>Documen seamus Infection Site: Abdominal< br>Duratio n of Therapy: 7 days iohexol 2019-0 2020- No 120mL 120 mL, Unive rs (OMNIPAQUE 06-04 Intravenou it y of 350 02:45: 02:45 s, ONCE, 1 [place] BULK-150 00 :00 dose, [place]ia Medica l mL) 06/03/20 at [place] injection 2145, 120 mL Routine NaCl 0.9% 2019- 2020- No 1000mL at 999 Uni vers (NS) bolus 06-04 mL/hr, ity of infusion 02:30: 04:26 1,000 mL, [place] as 1,000 mL 00 :00 IV Medical Infusion, [place] ONCE, 1 dose, [place] 06/03/20 at 2130, KIT ondansetron 2019-0 2020- No 4mg 4 mg, Slow Univers (ZOFRAN 06-04 IV Push, ity of (PF)) 02:30: 01:30 ONCE, 1 [place] injection 4 00 :00 dose, [place] Med ical mg 06/03/20 at Branch 2130, KIT morpHINE 2019-0 2020- No 4mg 4 mg, Slow Un evangelista injection 4 06-04 IV Push, ity of mg 02:30: 01:30 ONCE, 1 [place] 00 :00 dose, [place] Medical 06/03/20 at Branch 2130, STAT famotidine 2019-0 2020- No 20mg 20 mg, Univ ers (PEPCID 06-04 08-07 Slow IV ity of (PF)) 02:30: 01:30 Push, [place] injection 00 :00 ONCE, 1 Medical 20 mg dose, [facility] Branch 06/03/20 at 2130, KIT Vital Signs Vital Name Observation Time Observation Value Comments Source Systolic blood 2022-08-10 18:09:00 118 mm[Hg] Univer sity of pressure [facility] Diastolic blood 2022-08-10 18:09:00 77 mm[Hg] Unive rsity of pressure [facility] Heart rate 2022-08-10 18:09:00 72 /min Universi ty [facility] Body temperature 2022-08-10 18:09:00 37.06 Marge Univ ersity of [facility] Body height 2022-08-10 18:09:00 170.2 cm Universi ty of [facility] Body weight 2022-08-10 18:09:00 79.47 kg Universi ty [facility] BMI 2022-08-10 18:09:00 27.44 kg/m2 Universi ty [facility] Oxygen saturation in 2022-08-10 18:09:00 98 /min University of Arterial blood by [facility] Pulse oximetry Branch Systolic blood 2022-08-07 10:50:00 138 mm[Hg] Univer sity of pressure [facility] Diastolic blood 2022-08-07 10:50:00 80 mm[Hg] Unive rsity of [facility] Heart rate 2022-08-07 10:50:00 88 /min Universi ty [facility] Respiratory rate 2022-08-07 10:50:00 18 /min Univ ersity of [facility] Oxygen saturation in 2022-08-07 10:50:00 100 /min University of Arterial blood by [facility] Pulse oximetry Branch Body temperature 2022-08-07 08:36:00 36.78 Marge Univ ersity of [facility] Body weight 2022-08-07 08:36:00 86.183 kg Universi ty of [place] Medical [place] BMI 2022-08-07 08:36:00 29.76 kg/m2 Universi ty of [facility] Systolic blood 2022-08-06 03:40:00 109 mm[Hg] Univer sity of pressure [place] [facility] Diastolic blood 2022-08-06 03:40:00 81 mm[Hg] Unive rsity of pressure [place] [facility] Heart rate 2022-08-06 03:40:00 82 /min Universi ty of [place] [facility] Respiratory rate 2022-08-06 03:40:00 16 /min Univ ersity of [place] [facility] Oxygen saturation in 2022-08-06 03:40:00 100 /min University of Arterial blood by [place] [employer] Pulse oximetry Branch Body temperature 2022-08-05 23:05:00 35.72 Marge Univ ersity of [place] [facility] Body height 2022-08-05 23:05:00 170.2 cm Universi ty of [place] [facility] Body weight 2022-08-05 23:05:00 86.183 kg Universi ty of [place] [facility] BMI 2022-08-05 23:05:00 29.76 kg/m2 Universi ty of [place] [facility] Systolic blood 2022-07-29 03:33:00 123 mm[Hg] Univer sity of pressure [place] [facility] Diastolic blood 2022-07-29 03:33:00 77 mm[Hg] Unive rsity of pressure [place] [facility] Heart rate 2022-07-29 03:33:00 63 /min Universi ty of [place] [facility] Body temperature 2022-07-29 03:33:00 36.61 Marge Univ ersity of [place] [facility] Respiratory rate 2022-07-29 03:33:00 18 /min Univ ersity of [place] [facility] Oxygen saturation in 2022-07-29 03:33:00 99 /min University of Arterial blood by [facility] Pulse oximetry Branch Body height 2022-07-29 01:21:00 170.2 cm Universi ty of [place] [facility] Body weight 2022-07-29 01:21:00 84.823 kg Universi ty of [place] [facility] BMI 2022-07-29 01:21:00 29.29 kg/m2 Universi ty of [place] [facility] Systolic blood 2020-12-08 05:40:00 126 mm[Hg] Univer sity of pressure [place] [facility] Diastolic blood 2020-12-08 05:40:00 88 mm[Hg] Unive rsity of pressure [place] [facility] Heart rate 2020-12-08 05:40:00 102 /min Universi ty of [place] [facility] Respiratory rate 2020-12-08 05:40:00 18 /min Univ ersity of [place] [facility] Oxygen saturation in 2020-12-08 05:40:00 99 /min University of Arterial blood by [place] [employer] Pulse oximetry Branch Body temperature 2020-12-08 03:49:00 37.61 Marge Univ ersity of [place] [facility] Body weight 2020-12-08 03:49:00 108.863 kg Universi ty of [place] [facility] BMI 2020-12-08 03:49:00 37.59 kg/m2 Universi ty of [place] [facility] Systolic blood 2020-12-01 08:03:00 136 mm[Hg] Univer sity of pressure [place] [facility] Diastolic blood 2020-12-01 08:03:00 91 mm[Hg] Unive rsity of pressure [place] [facility] Heart rate 2020-12-01 08:03:00 93 /min Universi ty of [place] [facility] Respiratory rate 2020-12-01 08:03:00 18 /min Univ ersity of [place] [facility] Oxygen saturation in 2020-12-01 08:03:00 99 /min University of Arterial blood by [facility] libra Pulse oximetry Branch Body temperature 2020-12-01 05:32:00 37.28 Marge Univ ersity of [place] [facility] Body height 2020-12-01 05:32:00 170.2 cm Universi ty of [place] [facility] Body weight 2020-12-01 05:32:00 63.504 kg Universi ty of [place] [facility] BMI 2020-12-01 05:32:00 21.93 kg/m2 Universi ty of [place] [facility] Body temperature 2020-06-25 18:34:00 36.11 Marge Univ ersity of [place] [facility] Respiratory rate 2020-06-25 18:34:00 18 /min Univ ersity of [place] [facility] Body weight 2020-06-25 18:34:00 89.359 kg Universi ty of [place] [facility] Systolic blood 2020-06-25 18:34:00 126 mm[Hg] Univer sity of pressure [place] [facility] Diastolic blood 2020-06-25 18:34:00 81 mm[Hg] Unive rsity of pressure [place] [facility] Heart rate 2020-06-25 18:34:00 76 /min Universi ty of [place] [facility] Systolic blood 2020-06-05 16:02:00 112 mm[Hg] [facility] Diastolic blood 2020-06-05 16:02:00 57 mm[Hg] [facility] of pressure [facility] Heart rate 2020-06-05 16:02:00 74 /min [facility] Body temperature 2020-06-05 16:02:[address] [facility] Respiratory rate 2020-06-05 16:02:00 20 /min [facility] Oxygen saturation in 2020-06-05 16:02:00 99 /min [facility] Arterial blood by [facility] Pulse oximetry [place] Body height 2020-06-04 14:46:00 170.2 cm [facility] Body weight 2020-06-04 14:46:00 90.5 kg [facility] BMI 2020-06-04 14:46:00 31.24 kg/m2 [facility] Procedures Procedure Date / Time Performing Clinician Source Performed AUTHORIZATION FOR 2022-08-15 05:01:00 Doctor Unassigned, No [facility] RELEASE OF PHI [facility] CONSENT/REFUSAL FOR 2022-08-07 08:36:20 Doctor Unassigned, No Un [facility] of [place] DIAGNOSIS AND TREATMENT Name [facility] CT ABDOMEN PELVIS W 2022-08-06 02:18:50 Morrical, Nahid Negrete [facility] CONTRAST [facility] LIPASE 2022-08-06 00:21:00 [facility] HEPATIC FUNCTION PANEL 2022-08-06 00:21:00 Calvin Cadet [facility] ([id number]) (ALB,T.PRO,BILI Medical Branch T,BU/BC,ALT,AST,ALK PHOS) BASIC METABOLIC PANEL 2022-08-06 00:21:00 Calvin Cadet [facility] (NA, K, CL, CO2, Medical Branch GLUCOSE, BUN, CREATININE, CA) CBC WITH DIFF 2022-08-05 23:36:00 [facility] CONSENT/REFUSAL FOR 2022-08-05 22:59:10 Doctor Unassigned, No [facility] Name [facility] CT ABDOMEN PELVIS WO 2022-07-29 02:11:32 Kt Macias [facility] CONTRAST Medical Branch URINALYSIS 2022-07-29 01:30:00 Kt Macias [facility] LIPASE 2022-07-29 01:27:00 Kt Macias [facility] COMP. METABOLIC PANEL 2022-07-29 01:27:00 Kt Macias [facility] ([id number]) Medical [place] CBC WITH DIFF 2022-07-29 01:27:00 Kt Macias [facility] NOTICE OF PRIVACY 2022-07-29 01:16:35 Doctor Unassigned, No [facility] PRACTICES Name [facility] CONSENT/REFUSAL FOR 2022-07-29 01:16:00 Doctor Unassigned, No [facility] DIAGNOSIS AND TREATMENT Name [facility] TESTICULAR TORSION 2020-12-08 05:07:54 Evelyn Che [facility] URINALYSIS 2020-12-08 04:18:00 Evelyn [facility] US TESTICULAR TORSION 2020-12-01 08:31:51 Isac Rodrigez [facility] HEPATIC FUNCTION PANEL 2020-12-01 06:34:00 Isac Rodrigez [facility] ([id number]) (ALB,T.PRO,BILI [facility] T,BU/BC,ALT,AST,ALK PHOS) BASIC METABOLIC PANEL 2020-12-01 06:34:00 Isac Rodrigez [facility] (NA, K, CL, CO2, Medical Branch GLUCOSE, BUN, CREATININE, CA) CBC WITH DIFF 2020-12-01 06:34:00 [facility] PROTHROMBIN TIME / INR 2020-12-01 06:34:00 [facility] ACT[facility] PARTIAL 2020-12-01 06:34:00 Isac Rodrigez [facility] THRMPLAS PENNY [facility] COVID-19 (ID NOW RAPID 2020-12-01 06:34:00 Isac Rodrigez [facility] TESTING) Medical Branch URINALYSIS 2020-12-01 05:40:00 Isac Rodrigez [facility] Medical [place] NOTICE OF PRIVACY 2020-12-01 05:28:30 Doctor Unassigned, No [facility] PRACTICES Name Medical Branch CONSENT/REFUSAL FOR 2020-12-01 05:27:16 Doctor Unassigned, No [facility] [place] DIAGNOSIS AND TREATMENT Name Medical Branch CONSENT/REFUSAL FOR 2020-06-25 18:26:52 Doctor Unassigned, No Un iversity [facility] DIAGNOSIS AND TREATMENT Name Medical Branch BASIC METABOLIC PANEL 2020-06-05 11:05:00 [facility] (NA, K, CL, CO2, Medical Branch GLUCOSE, BUN, CREATININE, CA) CBC WITH DIFF 2020-06-05 11:05:[address] [facility] CT ABDOMEN PELVIS W 2020-06-04 02:39:28 Anh [facility] CONTRAST Medical Branch COVID-19 (ID NOW RAPID 2020-06-04 02:28:[facility] Branch URINALYSIS 2020-06-04 01:23:00 [facility] 2020-06-04 01:22:00 [facility] 2020-06-04 01:22:00 [facility] ([id number]) (ALB,T.PRO,BILI Medical Branch T,BU/BC,ALT,AST,ALK PHOS) BASIC METABOLIC PANEL 2020-06-04 01:22:00 [facility] (NA, K, CL, CO2, Medical Branch GLUCOSE, BUN, CREATININE, CA) CBC WITH DIFF 2020-06-04 01:22:00 [facility] NOTICE OF PRIVACY 2020-06-04 00:53:21 Doctor Unassigned, No Univ [facility] PRACTICES Name Medical Branch CONSENT/REFUSAL FOR 2020-06-04 00:52:28 Doctor Unassigned, No [facility] [place] DIAGNOSIS AND TREATMENT Name Medical Branch Encounters Start End Encounter Admission Attending Care Care Encounter Source Date/Time Date/Time Type Type Clinicians Facility Department ID 2021-08-27 Emergency [facility] [id number] Univers 22:41:01 ity of [facility] 2021-08-27 Emergency [facility] [id number] Univers 21:25:25 ity of [facility] 2022-11-03 2022-11-03 Telephone [facility] [id number] Univers 00:00:00 00:00:00 Ирина SPECIALTY [id number] ity of [id number] [place] AT [phone] Fl shantell WONGY 072 [facility] 2022-11-02 2022-11-02 [facility] [id number] Univers 13:30:00 13:30:00 JOSLYN [facility] 2022-08-15 2022-08-15 Orders Doctor CLARE [id number] Univers 00:00:00 00:00:00 Only Unassigned, CANDICE [id number] ity of [place] [facility] [id number] [place] as [phone] [address] 2022-08-14 2022-08-14 Career Services Representative Alissa, Vish Lab Main [facility] 1.2.8 40.114 [id number] Univers 13:30:00 13:45:00 Visit Yonis Am[place] [id number] ity [id number] [place] [phone] Fl shantell THAO 353 [facility] 2022-08-14 2022-08-14 Outpatient R HUI [facility] [id number] Univers 13:30:00 13:30:00 YONIS [facility] 2022-08-10 2022-08-10 Career Services Representative Lab, [facility] 1.2.840.114 [id number] Univers 13:45:00 14:00:00 Visit Joslyn [place] [id number] ity [id number] [phone] Fl dicfausto CHEEMA 353 [facility] 2022-08-10 2022-08-10 Outpatient R KAI [facility] [id number] Univers 13:45:00 13:45:00 JOSLYN ity [facility] 2022-08-10 2022-08-10 Office Ирина Mae [facility] 1.2.840.11 [id number] Univers 12:30:00 13:00:00 Visit Joslyn Davis SPECIALTY [id number] ity of CARE [id number] [facility] [place] [facility] CENTER AT [phone] Fl shantell CHEEMA [address] [place] [address] 2022-08-10 2022-08-10 Telephone Carmelita [facility] [id number] Univers 00:00:00 00:00:00 Ирина SPECIALTY [id number] ity of CARE [id number] [facility] CENTER AT [phone] Fl shantell CHEEMA [address] [place] [address] 2022-08-07 2022-08-07 Emergency X JAIRO [facility] ERT [id number] Univers 03:42:00 06:23:00 [facility] 2022-[facility]-07 2022-08-07 Emergency Morrical, TRAUMA 1.2.840.114 [id number] Univers 03:42:00 06:23:00 Nahid PEREZ [id number] ity of [id number] [facility] [id number] [facility] 014 [place] 2022-08-05 2022-08-05 Emergency X JAIRO [facility] ERT [id number] Univers 18:09:00 22:46:00 NAHID null [facility] 2022-08-05 2022-08-05 Emergency Calvin Cadet [facility] 1.2.840.1 [id number] Univers 18:09:00 22:46:00 Nahid [place] 350.1.13. 10 ity [facility] [id number] [facility] [id number] [facility] 084 [place] 2022-07-28 2022-07-28 Emergency X NITESH [facility] ERT [id number] Univers 20:20:00 22:45:00 WAKILI ity [facility] 2022-07-28 2022-07-28 Emergency [facility] [id number] Univers 20:20:00 22:45:00 Bretamyreny Marsh DIANA [id number] [facility] [id number] [facility] [phone] [place] [id number] [place] 2022-07-28 2022-07-28 Orders Doctor CLARE 1.2.840.114 [id number] Univers 00:00:00 00:00:00 Only Unassigned, CANDICE [id number] ity of [place] [facility] [id number] [facility] [phone] [place] [address] Branch 2020-12-07 2020-12-08 Emergency [facility] [id number] Univers 21:51:00 00:02:00 Evelyn Finley 350.1.13.10 i ty of [place] 4.2.7.2.686 [facility] [phone] [address] 2020-12-07 2020-12-07 Office [facility] 1.2.840.114 [id number] 14:15:47 14:45:47 Visit Maria Ines [facility] [id number] [place] [address] [place] [address] [phone] Primary & 204 Specialty Care 2020-12-07 2020-12-07 Office [facility] 1.2.840.114 [id number] Univers 14:15:47 14:45:47 Visit Maria Ines [facility] 350.1.13.10 it y of [place] 4.2.7.2.686 [facility] [phone] [facility] Primary & 204 Branch Specialty Care 2020-12-07 2020-12-07 Outpatient R NEHA [facility] [id number] Univers 14:30:00 14:30:00 MARIA INES ity of [facility] 2020-11-30 2020-12-01 Emergency [facility] [id number] Univers 23:41:00 02:57:00 Isac Fin[place] [id number] i ty [place].686 [place] [id number] [facility] 084 [place] 2020-07-01 2020-07-01 Outpatient R ANNA [facility] [id number] Univers 16:15:00 16:15:00 KAMILA tennille [facility] 2020-06-25 2020-06-25 Office [facility] 1.2.840.114 [id number] Univers 14:04:13 14:04:13 Visit Deepthi Cunningham [place] [id number] [place]y [place] Profess[place] [phone] Fl dical [facility] 377 [facility] 2020-06-25 2020-06-25 Out[facility] [id number] Univers 13:30:00 13:30:00 DEEPTHI [facility] 2020-06-25 2020-06-25 Orders Doctor CLARE 1.2.840.114 [id number] Univers 00:00:00 00:00:00 Only Unassigned, CANDICE [id number] ity of [place] [facility] [id number] [place] as [phone] [facility] 009 Branch 2020-06-07 2020-06-07 Transition Bertin Saunders 1.2.840.114 [id number] Univers 00:00:00 00:00:00 of Care Demetria [place] [id number] ity of [place].2.[place] [id number] [facility] 403 Branch 2020-06-03 2020-06-05 Hospital Macey Kamara [facility] 1.2.840. 114 [id number] Univers 19:57:00 14:33:00 Encounter Kt Maicas 350.1.13.1 0 ity of [place] Hilario 4.2.7.2.686 [facility] [id number] [facility] 081 Branch 2020-06-03 2020-06-03 Emergency X ANH [facility] ERT [id number] Univers 19:57:00 19:57:00 MACEY [facility] Results Test Description Test Time Test Comments Results Result Comments Source HEPATIC FUNCTION PANEL (34227) (ALB,T.PRO,BILI 2022-08-06 01 :13:35 T,BU/BC,ALT,AST,ALK PHOS) Test Item Value Reference Range Interpretation Comme nts TOTAL BILI (test code = 9152179011) 0.8 mg/dL 0.1-1.1 BILI UNCON (test code = 3468470780) 0.6 mg/dL 0.1-1.1 BILI CONJ (test code = 1740403555) 0.0 mg/dL 0-0.3 T PROTEIN (test code = 4690421845) 8.8 g/dL 6.3-8.2 H ALBUMIN (test code = 4316792936) 5.5 g/dL 3.5-5 H ALK PHOS (test code = 2368709905) 76 U/L 34-122 ALTv (test code = 1742-6) 36 U/L 5-50 AST(SGOT) (test code = 7107251947) 35 U/L 13-40 Lab Interpretation (test code = 50645-7) [facility]15 Test Item Value Reference Range Interpretation Comments LIPASE (test code = 4195753453) 38 U/L 0-220 Lab Interpretation (test code = Normal 27512-5) [facility] (NA, K, CL, CO2, GLUCOSE, BUN, CREATININE, CA)2022-08-06 00:50:55 Test Item Value Reference Range Interpretation Comments NA (test code = 141 mmol/L 135-145 9994890956) K (test code = 4.4 mmol/L 3.5-5 3259167209) CL (test code = 102 mmol/L 98-108 9702234306) CO2 TOTAL (test code = 21 mmol/L 23-31 L 4408479249) AGAP (test code = 2-16 H 7689051047) BUN (test code = 16 mg/dL 7-23 1985106845) GLUCOSE (test code = 89 mg/dL 70-110 9787982127) CREATININE (test code = 0.70 mg/dL 0.6-1.25 3305137941) CALCIUM (test code = 10.7 mg/dL 8.6-10.6 H 4366763137) eGFR (test code = mL/min/1.73m2 9880719205) LISA (test code = LISA) Association of [...] tests). Lab Interpretation Abnormal (test code = 23867-3) [facility] WITH [id number] 00:32:54 Test Item Value Reference Range Interpretation Comments WBC (test code = See_Comment H [Automated 2690-2) message] The sy stem which generated this result transmitted reference range : 4.20 - 10.70 10*3/?L. The reference range was not used to interpret this result as normal/abnormal . RBC (test code = See_Comment H [Automated 789-8) message] The sy stem which generated this result transmitted reference range : 4.26 - 5.52 10*6/?L. The reference range was not used to interpret this result as normal/abnormal . HGB (test code = 17.2 g/dL 12.2-16.4 H 718-7) HCT (test code = 47.6 % 38.4-49.3 4544-3) MCV (test code = 81.6 fL 81.7-95.6 L 787-2) MCH (test code = 29.5 pg 26.1-32.7 785-6) MCHC (test code = 36.1 g/dL 31.2-35 H 786-4) RDW-SD (test code = 37.6 fL 38.5-51.6 L 34815-9) RDW-CV (test code = 12.9 % 12.1-15.4 788-0) PLT (test code = See_Comment H [Automated 777-3) message] The sy stem which generated this result transmitted reference range : 150 - 328 10*3/ ?L. The reference r keshia was not used to interpret this result as normal/abnormal . MPV (test code = 10.2 fL 9.8-13 11820-5) IPF % (test code = 2.5 % 1.2-10.7 Platelet count 1017291635) measured by fluorescence method. NRBC/100 WBC (test See_Comment [Automat ed code = 1699994896) message] The system which generated this result transmitted reference range : 0.0 - 10.0 /100 WBCs. The refer ence range was not u sed to interpret th is result as normal/abnormal . NRBC x10^3 (test code See_Comment [Auto mated = 1156198200) message] The s ystem which generated this result transmitted reference range : 10*3/?L. The reference range was not used to interpret this result as normal/abnormal . GRAN MAT (NEUT) % 67.7 % (test code = 770-8) IMM GRAN % (test code 0.30 % = 6339336928) LYMPH % (test code = 23.7 % 736-9) MONO % (test code = 7.0 % 5905-5) EOS % (test code = 1.0 % 713-8) BASO % (test code = 0.3 % 706-2) GRAN MAT x10^3(ANC) 7.31 10*3/uL 1.99-6.95 H (test code = 2262430521) IMM GRAN x10^3 (test 0.03 10*3/uL 0-0.06 code = 0575738369) LYMPH x10^3 (test code 2.56 10*3/uL 1.09-3.23 = 731-0) MONO x10^3 (test code 0.76 10*3/uL 0.36-1.02 = 742-7) EOS x10^3 (test code = 0.11 10*3/uL 0.06-0.53 711-2) BASO x10^3 (test code 0.03 10*3/uL 0.01-0.09 = 704-7) Lab Interpretation Abnormal (test code = 91343-9) [facility] Xskyy9233-14-06 01:48:30 Test Item Value Reference Range Interpretation Comments NA (test code = 142 mmol/L 135-145 5868312083) K (test code = 3.9 mmol/L 3.5-5 6125301109) CL (test code = 104 mmol/L 98-108 5189607094) CO2 TOTAL (test code = 24 mmol/L 23-31 5488993297) AGAP (test code = 2-16 4450048627) BUN (test code = 9 mg/dL 7-23 0016996512) GLUCOSE (test code = 125 mg/dL 70-110 H 9027666054) CREATININE (test code = 0.70 mg/dL 0.6-1.25 0302424412) TOTAL BILI (test code = 0.6 mg/dL 0.1-1.2 6272765040) CALCIUM (test code = 10.0 mg/dL 8.6-10.6 0955357900) T PROTEIN (test code = 8.3 g/dL 6.3-8.2 H 6033587879) ALBUMIN (test code = 5.2 g/dL 3.5-5 H 6083588125) ALK PHOS (test code = 81 U/L 34-122 7885498752) ALTv (test code = 35 U/L 5-50 1742-6) AST(SGOT) (test code = 32 U/L 13-40 1290134840) eGFR (test code = mL/min/1.73m2 5477515233) LISA (test code = LISA) Association of [...] tests). Lab Interpretation Abnormal (test code = 49211-9) [facility] CenterLipase, Mrcun4775-09-81 01:48:09 Test Item Value Reference Range Interpretation Comments LIPASE (test code = 1146568776) 23 U/L 0-220 Lab Interpretation (test code = Normal 73598-0) [facility] CenterCB with Bfdtptxcntga9612-06-11 01:37:47 Test Item Value Reference Range Interpretation Comments WBC (test code = See_Comment H [Automated 2049-2) message] The sy stem which generated this result transmitted reference range : 4.20 - 10.70 10*3/?L. The reference range was not used to interpret this result as normal/abnormal . RBC (test code = See_Comment [Automated 339-8) message] The sy stem which generated this [...] RDW-SD (test code = 39.0 fL 38.5-51.6 57284-6) RDW-CV (test code = 12.7 % 12.1-15.4 788-0) PLT (test code = See_Comment H [Automated 777-3) message] The sy stem which generated this result transmitted reference range : 150 - 328 10*3/ ?L. The reference r keshia was not used to interpret this result as normal/abnormal . MPV (test code = 9.0 fL 9.8-13 L 98908-4) NRBC/100 WBC (test See_Comment [Automat ed code = 1208451055) message] The system which generated this result transmitted reference range : 0.0 - 10.0 /100 WBCs. The refer ence range was not u sed to interpret th is result as normal/abnormal . NRBC x10^3 (test code See_Comment [Auto mated = 2561461452) message] The s ystem which generated this result transmitted reference range : 10*3/?L. The reference range was not used to interpret this result as normal/abnormal . GRAN MAT (NEUT) % 79.8 % (test code = 770-8) IMM GRAN % (test code 0.30 % = 4871032743) LYMPH % (test code = 14.4 % 736-9) MONO % (test code = 4.7 % 5905-5) EOS % (test code = 0.5 % 713-8) BASO % (test code = 0.3 % 706-2) GRAN MAT x10^3(ANC) 9.21 10*3/uL 1.99-6.95 H (test code = 4733552290) IMM GRAN x10^3 (test 0.04 10*3/uL 0-0.06 code = 1369414786) LYMPH x10^3 (test code 1.66 10*3/uL 1.09-3.23 = 731-0) MONO x10^3 (test code 0.54 10*3/uL 0.36-1.02 = 742-7) EOS x10^3 (test code = 0.06 10*3/uL 0.06-0.53 711-2) BASO x10^3 (test code 0.04 10*3/uL 0.01-0.09 = 704-7) Lab Interpretation Abnormal (test code = 01804-2) [facility] CenterUS TESTICULAR [id number] 05:38:51 No evidence of testicular torsion. Normal [...] reviewed this study and agree with the abovereport.[facility] LwvbbkWELWAAICCI0162-15-25 04:59:00 Test Item Value Reference Range Interpretation Comments APPEARANCE (test code = Hazy Clear A 3190883144) COLOR (test code = Yellow Yellow 5428796642) PH (test code = 4.8-8.0 6812561967) SP GRAVITY (test code = 1.003-1.030 4341985294) GLU U QUAL (test code = Normal Normal 8046979612) BLOOD (test code = Negative Negative 9396229874) KETONES (test code = Negative Negative 4200221222) PROTEIN (test code = Negative Negative 2887-8) UROBILIN (test code = Normal Normal 9668157387) BILIRUBIN (test code = Negative Negative 9781229802) NITRITE (test code = Negative Negative 5891049122) LEUK MARVIN (test code = Negative Negative 0487237677) RBC/HPF (test code = See_Comment [Autom ated message] 5767787131) The system [employer] generated this result transmitted ref erence range: 0 - 3 HP F. The reference range was not used to int erpret this result as normal/abnormal . WBC/HPF (test code = See_Comment [Autom ated message] 6538661368) The system [employer] generated this result transmitted ref erence range: 0 - 5 HP F. The reference range was not used to int erpret this result as normal/abnormal . BACTERIA (test code = Few Negative A 3497034436) AMORPHOUS (test code = Few Rare HPF A 3567885812) Lab Interpretation (test Abnormal code = 88600-3) [facility] ([facility] NOW RAPID TESTING)2020-12-01 06:59:00 Test Item Value Reference Range Interpretation Comments SARS-CoV-2 Rapid ID NOW Not Detected Not Detected (test code = 21849-8) LISA (test code = LISA) ID NOW COVID-19 Assay is an isothermal nucleic acid amplification test intended for the qualitative detection of nucleic acid from SARS-CoV-2 viral RNA in nasopharyngeal ([employer]) specimens. It is used under Emergency Use [...] indicated. Lab Interpretation Normal (test code = 96363-0) [facility] Metabolic Panel (NA, K, CL, CO2, GLUCOSE, BUN, CREATININE, CA)2020-12-01 06:55:00 Test Item Value Reference Range Interpretation Comments NA (test code = 141 mmol/L 135-145 1285188881) K (test code = 4.2 mmol/L 3.5-5 4677037131) CL (test code = 104 mmol/L 98-108 0150667076) CO2 TOTAL (test code = 26 mmol/L 23-31 0039402460) AGAP (test code = 2-16 1352660399) BUN (test code = 11 mg/dL 7-23 0881776992) GLUCOSE (test code = 135 mg/dL 70-110 H 1194646937) CREATININE (test code = 0.53 mg/dL 0.6-1.25 L 3439362931) CALCIUM (test code = 9.5 mg/dL 8.6-10.6 0526590586) eGFR Calculation mL/min/1.73m2 (Non-) (test code = 0707335832) eGFR Calculation mL/min/1.73m2 () (test code = 7486583645) LISA (test code = LISA) Association of [...] tests). Lab Interpretation Abnormal (test code = 95682-5) [facility] CenterHepatic Function Panel (ALB, T.PRO, BILI T, BU/BC, ALT, AST, ALK PHOS)2020-12-01 06:55:00 Test Item Value Reference Range Interpretation Comments TOTAL BILI (test code = 2663143156) 0.5 mg/dL 0.1-1.1 BILI UNCON (test code = 7906863938) 0.2 mg/dL 0.1-1.1 BILI CONJ (test code = 6964341105) 0.0 mg/dL 0-0.3 T PROTEIN (test code = 7321873628) 8.2 g/dL 6.3-8.2 ALBUMIN (test code = 4939704758) 4.8 g/dL 3.5-5 ALK PHOS (test code = 5274688026) 135 U/L 34-122 H ALTv (test code = 1742-6) 51 U/L 5-50 H AST(SGOT) (test code = 4709181419) 40 U/L 13-40 Lab Interpretation (test code = Abnormal 28274-3) [facility] CenteraPTT2021-02-03 06:53:00 Test Item Value Reference Range Interpretation Comments APTT Patient (test See_Comment [Automat ed code = 3173-2) message] The system which generated this result transmitted reference range : 23 - 38 Seconds . The reference range was not used to interpr et this result as normal/abnormal . LISA (test code = LISA) The [facility] patient population mean normal value for aPTT is 30 seconds. Lab Interpretation Normal (test code = 95010-5) [facility] CenterProthrombin Time (PT) / [id number] 06:51:00 Test Item Value Reference Range Interpretation [...] tions. Lab Interpretation (test Normal code = 38696-5) [facility] with Uppsmyglnijt7111-95-84 06:44:00 Test Item Value Reference Range Interpretation Comments WBC (test code = See_Comment [Automated 6690-2) message] The sy stem which [...] (test code = 37.9 fL 38.5-51.6 L 21325-0) RDW-CV (test code = 12.3 % 12.1-15.4 788-0) PLT (test code = See_Comment H [Automated 777-3) message] The sy stem which generated this result transmitted reference range : 150 - 328 10*3/ ?L. The reference r keshia was not used to interpret this result as normal/abnormal . MPV (test code = 8.9 fL 9.8-13 L 79016-0) NRBC/100 WBC (test See_Comment [Automat ed code = 9862790321) message] The system which generated this result transmitted reference range : 0.0 - 10.0 /100 WBCs. The refer ence range was not u sed to interpret th is result as normal/abnormal . NRBC x10^3 (test code <0.01 See_Comment [Auto mated = 3251674401) message] The s ystem which generated this result transmitted reference range : 10*3/?L. The reference range was not used to interpret this result as normal/abnormal . GRAN MAT (NEUT) % 53.1 % (test code = 770-8) IMM GRAN % (test code 0.50 % = 8287068641) LYMPH % (test code = 36.1 % 736-9) MONO % (test code = 7.6 % 5905-5) EOS % (test code = 2.3 % 713-8) BASO % (test code = 0.4 % 706-2) GRAN MAT x10^3(ANC) 4.14 10*3/uL 1.99-6.95 (test code = 9245652161) IMM GRAN x10^3 (test 0.04 10*3/uL 0-0.06 code = 3224596573) LYMPH x10^3 (test code 2.81 10*3/uL 1.09-3.23 = 731-0) MONO x10^3 (test code 0.59 10*3/uL 0.36-1.02 = 742-7) EOS x10^3 (test code = 0.18 10*3/uL 0.06-0.53 711-2) BASO x10^3 (test code 0.03 10*3/uL 0.01-0.09 = 704-7) Lab Interpretation Abnormal (test code = 28872-4) [facility] CenterURINALYSIS2021-02-03 06:30:00 Test Item Value Reference Range Interpretation Comments APPEARANCE (test code = Hazy Clear A 6370242872) COLOR (test code = Yellow Yellow 0565488063) PH (test code = 4.8-8.0 4335518880) SP GRAVITY (test code = 1.003-1.030 7966743148) GLU U QUAL (test code = Normal Normal 6838386329) BLOOD (test code = Negative Negative 2037572825) KETONES (test code = Negative Negative 7911663964) PROTEIN (test code = Negative Negative 2887-8) UROBILIN (test code = 2.0 mg/dL Normal A 4835103848) BILIRUBIN (test code = Negative Negative 4862311122) NITRITE (test code = Negative Negative 9722264575) LEUK MARVIN (test code = Negative Negative 5388002144) RBC/HPF (test code = See_Comment [Autom ated message] 4635442687) The system [employer] generated this result transmit seamus reference range : 0 - 3 HPF. The refe rence range was not u sed to interpret th is result as normal/abnormal . WBC/HPF (test code = See_Comment [Autom ated message] 5695396315) The system [employer] generated this result transmit seamus reference range : 0 - 5 HPF. The refe rence range was not u sed to interpret th is result as normal/abnormal . BACTERIA (test code = Negative Negative 9900878037) MUCOUS (test code = Slight Negative LPF A 3851022368) AMORPHOUS (test code = Rare Rare HPF 1868723198) Lab Interpretation (test Abnormal code = 49187-1) [facility] Metabolic Panel (NA, K, CL, CO2, GLUCOSE, BUN, CREATININE, CA)2020-06-05 12:37:00 Test Item Value Reference Range Interpretation Comments NA (test code = 136 mmol/L 135-145 4876542001) K (test code = 4.0 mmol/L 3.5-5 2606861078) CL (test code = 106 mmol/L 98-108 6173607780) CO2 TOTAL (test code = 23 mmol/L 23-31 0799211706) AGAP (test code = 2-16 2502396265) BUN (test code = 10 mg/dL 7-23 4408917912) GLUCOSE (test code = 122 mg/dL 70-110 H 0588607076) CREATININE (test code = 0.61 mg/dL 0.6-1.25 7381536185) CALCIUM (test code = 9.2 mg/dL 8.6-10.6 2851380739) eGFR Calculation mL/min/1.73m2 (Non-) (test code = 9024706693) eGFR Calculation mL/min/1.73m2 () (test code = 9083406530) LISA (test code = LISA) Association of [...] tests). Lab Interpretation Abnormal (test code = 38544-6) [facility] with Vmjpeboglkog5780-63-46 12:27:00 Test Item Value Reference Range Interpretation Comments WBC (test code = See_Comment [Automated 8108-2) message] The system which generated this result transmit seamus reference range : 4.50 - 13.50 10*3/?L. The reference range was not used to interpret this result as normal/abnormal . RBC (test code = See_Comment [Automated 694-8) message] The system which generated this result [...] RDW-SD (test code = 38.9 fL 38.5-49 91363-2) RDW-CV (test code = 12.4 % 11.5-14 788-0) PLT (test code = See_Comment [Automated 777-3) message] The system which generated this result transmit seamus reference range : 133 - 320 10*3/ ?L. The reference range was not u sed to interpret th is result as normal/abnormal . MPV (test code = 9.6 fL 9.3-12.9 24584-6) NRBC/100 WBC (test See_Comment [Automat ed code = 8924547076) message] The system which generated this result transmit seamus reference range : 0.0 - 10.0 /100 WBCs. The reference range was not used to interpret this result as normal/abnormal . NRBC x10^3 (test code <0.01 See_Comment [Auto mated = 1474732572) message] The system which generated this result transmit seamus reference range : 10*3/?L. The reference range was not used to interpret this result as normal/abnormal . GRAN MAT (NEUT) % 81.7 % (test code = 770-8) IMM GRAN % (test code 0.50 % = 3378434028) LYMPH % (test code = 11.6 % 736-9) MONO % (test code = 6.0 % 5905-5) EOS % (test code = 0.0 % 713-8) BASO % (test code = 0.2 % 706-2) GRAN MAT x10^3(ANC) 10.61 10*3/uL 1.5-10.3 H (test code = 8728139952) IMM GRAN x10^3 (test 0.06 10*3/uL 0-0.06 code = 2508752473) LYMPH x10^3 (test code 1.51 10*3/uL 0.7-7.4 = 731-0) MONO x10^3 (test code 0.78 10*3/uL 0-0.5 H = 742-7) EOS x10^3 (test code = <0.03 0-0.4 711-2) BASO x10^3 (test code <0.03 0-0.1 = 704-7) Lab Interpretation Abnormal (test code = 54261-7) [facility] CenterCT ABDOMEN PELVIS W DFOJRREY3599-40-71 04:43:28 1. ?Fluid-filled, thickened and mildly dilated appendix with minimaladjacent fat stranding, consistent with early acute appendicitis. Noevidence of perforation or organized collection identified. Findings were conveyed to Dr. Macias at 10:05 PM on 06/03/2020. Preliminary Report Dictated by Resident: Josephine Faulkner ?MD. Jignesh, have reviewed this study and agree with [...] reviewed this study and agree with the abovereport.[facility] CenterCOVID[facility] (ID NOW RAPID TESTING)2020-06-04 03:32:00 Test Item Value Reference Range Interpretation Comments SARS-CoV-2 Rapid ID NOW Not Detected Not Detected (test code = 83924-8) LISA (test code = LISA) ID NOW COVID-19 Assay is an isothermal nucleic acid amplification test intended for the qualitative detection of nucleic acid from SARS-CoV-2 viral RNA in nasopharyngeal ([employer]) specimens. It is used under Emergency Use [...] indicated. Lab Interpretation Normal (test code = 54415-4) [facility] CenterLIPASE2020-08-07 03:27:00 Test Item Value Reference Range Interpretation Comments LIPASE (test code = 8016369573) 15 U/L 0-220 Lab Interpretation (test code = Normal 76516-4) [facility] CenterHepatic Function Panel (ALB, T.PRO, BILI T, BU/BC, ALT, AST, ALK PHOS)2020-06-04 02:34:00 Test Item Value Reference Range Interpretation Comments TOTAL BILI (test code = 9158712110) 0.7 mg/dL 0.1-1.1 BILI UNCON (test code = 0206525096) 0.8 mg/dL 0.1-1.1 BILI CONJ (test code = 9781009754) 0.0 mg/dL 0-0.3 T PROTEIN (test code = 8527452552) 8.8 g/dL 6.3-8.2 H ALBUMIN (test code = 9338369602) 5.2 g/dL 3.5-5 H ALK PHOS (test code = 3629651067) 91 U/L 34-122 ALTv (test code = 1742-6) 36 U/L 5-50 AST(SGOT) (test code = 8685946470) 30 U/L 13-40 Lab Interpretation (test code = Abnormal 86697-4) [facility] CenterUrinalysis2020-08-07 02:28:00 Test Item Value Reference Range Interpretation Comments APPEARANCE (test code = Clear Clear 2216594559) COLOR (test code = Yellow Yellow 2754843472) PH (test code = 4.8-8.0 5558422418) SP GRAVITY (test code = 1.003-1.030 H 5886039077) GLU U QUAL (test code = Normal Normal 2266351614) BLOOD (test code = Negative Negative 0201602900) KETONES (test code = 80 mg/dL Negative A 0652975744) PROTEIN (test code = 30 mg/dL Negative A 2887-8) UROBILIN (test code = Normal Normal 3358254993) BILIRUBIN (test code = Negative Negative 2844722829) NITRITE (test code = Negative Negative 4150100440) LEUK MARVIN (test code = Negative Negative 7976367470) RBC/HPF (test code = See_Comment [Autom ated message] 0641781605) The system [employer] generated this result transmitted ref erence range: 0 - 3 HP F. The reference range was not used to int erpret this result as normal/abnormal . WBC/HPF (test code = <1 See_Comment [Autom ated message] 7298803817) The system [employer] generated this result transmitted ref erence range: 0 - 5 HP F. The reference range was not used to int erpret this result as normal/abnormal . BACTERIA (test code = Negative Negative 5634884132) MUCOUS (test code = Moderate Negative LPF A 2658056765) HYAL CAST (test code = See_Comment [Aut omated message] 4640352250) The system [employer] generated this result transmitted ref erence range: <=2 LPF. The reference range was not used to int erpret this result as normal/abnormal . Lab Interpretation (test Abnormal code = 82401-9) [facility] (NA, K, CL, CO2, GLUCOSE, BUN, CREATININE, CA)2020-06-04 02:17:00 Test Item Value Reference Range Interpretation Comments NA (test code = 140 mmol/L 135-145 6835055852) K (test code = 3.9 mmol/L 3.5-5 2661373106) CL (test code = 102 mmol/L 98-108 6010816138) CO2 TOTAL (test code = 24 mmol/L 23-31 0757116546) AGAP (test code = 2-16 8920686056) BUN (test code = 13 mg/dL 7-23 8228582269) GLUCOSE (test code = 116 mg/dL 70-110 H 0751569618) CREATININE (test code = 0.68 mg/dL 0.6-1.25 8700494420) CALCIUM (test code = 9.9 mg/dL 8.6-10.6 1272171984) eGFR Calculation mL/min/1.73m2 (Non-) (test code = 8417552194) eGFR Calculation mL/min/1.73m2 () (test code = 3152544161) LISA (test code = LISA) Association of [...] tests). Lab Interpretation Abnormal (test code = 79606-4) [facility] with Uvhruexfktfq4082-40-10 01:41:00 Test Item Value Reference Range Interpretation Comments WBC (test code = See_Comment H [Automated 5907-2) message] The system which generated this result transmit seamus reference range : 4.50 - 13.50 10*3/?L. The reference range was not used to interpret this result as normal/abnormal . RBC (test code = See_Comment [Automated 567-2) message] The system which generated this result [...] (test code = 37.9 fL 38.5-49 L 26012-3) RDW-CV (test code = 12.4 % 11.5-14 788-0) PLT (test code = See_Comment H [Automated 777-3) message] The system which generated this result transmit seamus reference range : 133 - 320 10*3/ ?L. The reference range was not u sed to interpret th is result as normal/abnormal . MPV (test code = 9.3 fL 9.3-12.9 38802-1) NRBC/100 WBC (test See_Comment [Automat ed code = 2995568570) message] The system which generated this result transmit seamus reference range : 0.0 - 10.0 /100 WBCs. The reference range was not used to interpret this result as normal/abnormal . NRBC x10^3 (test code <0.01 See_Comment [Auto mated = 6373852370) message] The system which generated this result transmit seamus reference range : 10*3/?L. The reference range was not used to interpret this result as normal/abnormal . GRAN MAT (NEUT) % 85.5 % (test code = 770-8) IMM GRAN % (test code 0.50 % = 1202024586) LYMPH % (test code = 7.9 % 736-9) MONO % (test code = 5.8 % 5905-5) EOS % (test code = 0.1 % 713-8) BASO % (test code = 0.2 % 706-2) GRAN MAT x10^3(ANC) 12.93 10*3/uL 1.5-10.3 H (test code = 2511722652) IMM GRAN x10^3 (test 0.08 10*3/uL 0-0.06 H code = 0249299749) LYMPH x10^3 (test code 1.19 10*3/uL 0.7-7.4 = 731-0) MONO x10^3 (test code 0.87 10*3/uL 0-0.5 H = 742-7) EOS x10^3 (test code = <0.03 0-0.4 711-2) BASO x10^3 (test code 0.03 10*3/uL 0-0.1 = 704-7) Lab Interpretation Abnormal (test code = 58359-3) [facility]"
[2023-01-17] MEDS ORDERED: LIDOCAINE VISCOUS 2% SOLN 15 ML UDC ONE (20:55)
[2023-01-17] MEDS ORDERED: MAGNES/ALUMIN/SIMET 30ML UCUP ONE (20:55)
--- NOTE | 2023-01-18 08:27 | ER ---
Nurse's Notes [facility] Name: Kushal Tan Age: 22 yrs Sex: Male : 2000 Arrival Date: 01/17/2023 Time: 20:15 Bed External Waiting [facility] MD: Diagnosis: Acute pharyngitis, unspecified Presentation: 01/17 20:30 Chief complaint: Patient states: sore throat, cough, cold sweats for 1 week. last 3 lg3 days throat is feeling worse and now there's something hanging in the back of my throat. Coronavirus screen: Client denies travel out of the [place] in the last 14 days. Client presents with at least one sign or symptom that may indicate coronavirus-19. Standard/surgical mask placed on the client. Ebola Screen: No symptoms or risks identified at this time. Initial Sepsis Screen: Does the patient meet any 2 criteria? No. Patient's initial sepsis screen is negative. Does the patient have a suspected source of infection? No. Patient's initial sepsis screen is negative. Risk Assessment: Do you want to hurt yourself or someone else? Patient reports no desire to harm self or others. Onset of symptoms is unknown. 20:30 Method Of Arrival: Ambulatory lg3 20:30 Acuity: MELO 4 lg3 Triage Assessment: 20:32 General: Appears in no apparent distress. comfortable, Behavior is calm, cooperative. lg3 Pain: Complains of pain in throat. EENT: Reports difficulty swallowing. Neuro: No deficits noted. Hicks Agitation-Sedation Scale (RASS): 0 - Alert and Calm Level of Consciousness is awake, alert, obeys commands, Oriented to person, place, time, situation. Cardiovascular: No deficits noted. Respiratory: No deficits noted. GI: No deficits noted. No signs and/or symptoms were reported involving the gastrointestinal system. : No deficits noted. No signs and/or symptoms were reported regarding the genitourinary system. Derm: No deficits noted. No signs and/or symptoms reported regarding the dermatologic system. Skin is intact, is healthy with good turgor, Skin is dry, Skin is normal. Musculoskeletal: No deficits noted. No signs and/or symptoms reported regarding the musculoskeletal system. Circulation, motion, and sensation intact. Range of motion: intact in all extremities. Historical: - Allergies: 20:32 No Known Allergies; lg3 - Home Meds: 20:32 melatonin Oral [Active]; lg3 - PMHx: 20:32 None; lg3 - PSHx: 20:32 Appendectomy; lg3 - Immunization history:: Adult Immunizations up to date, Client reports having NOT received the Covid vaccine. Flu vaccine is not up to date. - Social history:: Smoking status: Reported history of juuling and/or vaping. Patient/guardian denies using alcohol, street drugs. Assessment: 20:45 Reassessment: see triage assessment. mb9 20:56 Reassessment: Pt declined medicine and swabs. Educated pt about wait time and pt states mb9 "I need to leave to get back to work. I don't want to wait for the test results. I'll come back when I have more time." Asked pt to wait until Mary REYNA, can come and speak to him before leaving. Pt became angry and started pacing. Pt walked out of room cussing "you need to get another fucking job. This is your fucking job.". Vital Signs: 20:30 BP 136 / 81; Pulse 81; Resp 17 S; Temp 98.1(O); Pulse Ox 100% on R/A; Weight 90.72 kg lg3 (R); Height 5 ft. 7 in. (R); Pain 5/10; 20:30 Body Mass Index 31.32 (90.72 kg, 170.18 cm) lg3 20:30 Pain Scale: Adult lg3 ED Course: 20:15 Patient arrived in ED. mr 20:17 Rafael Hernandez PA is PHCP. cp 20:17 Randolph Samuel MD is Attending Physician. cp 20:32 Triage completed. lg3 20:44 Majo Haley, ABEL is Primary Nurse. mb9 20:44 Arm band placed on. mb9 20:45 No provider procedures requiring assistance completed. mb9 Administered Medications: 21:10 Not Given (Patient Refused): GI Cocktail without - (Maalox PO Suspension 30 mb9 ml, Lidocaine Mucous Membrane Liquid 2 % 15 ml) PO once; swish, gargle swallow Medication: 20:45 VIS not applicable for this client. mb9 Outcome: 21:50 Discharge ordered by . cp 23:05 Patient left the ED. kl Signatures: Ines Camarena RN RN manuel Lucero, Majo mr Rafael Hernandez, Sadaf Gresham cp, RN RN lg3 Majo Haley, RN RN mb9 Corrections: (The following items were deleted from the chart) 21:09 20:56 Reassessment: Pt declined medicine and swabs. Educated pt about wait time and pt mb9 states "I need to leave to get back to work. I don't want to wait for the test results. I'll come back when I have more time." Asked pt to wait until Mary REYNA, can come and speak before leaving. Pt became angry and started pacing. Pt walked out of room cussing "you need to get another fucking job. This is your fucking job." mb9
--- NOTE | 2023-01-18 08:27 | EDPHYS ---
Physician Documentation [facility] Name: Kushal Tan Age: 22 yrs Sex: Male : 2000 Arrival Date: 01/17/2023 Time: 20:15 Bed External Waiting Private MD: ED Physician Randolph Samuel HPI: 01/17 20:40 This 22 yrs old Male presents to ER via Ambulatory with complaints of Cough, cp Sore Throat. 20:40 The patient or guardian reports cough, that is intermittent, sore throat. Onset: The cp symptoms/episode began/occurred 1 week(s) ago, and became worse 3 day(s) ago. Severity of symptoms: in the emergency department the symptoms are unchanged, despite home interventions. Associated signs and symptoms: Pertinent negatives: diarrhea, fever, vomiting. Historical: - Allergies: 20:32 No Known Allergies; lg3 - Home Meds: 20:32 melatonin Oral [Active]; lg3 - PMHx: 20:32 None; lg3 - PSHx: 20:32 Appendectomy; lg3 - Immunization history:: Adult Immunizations up to date, Client reports having NOT received the Covid vaccine. Flu vaccine is not up to date. - Social history:: Smoking status: Reported history of juuling and/or vaping. Patient/guardian denies using alcohol, street drugs. ROS: 20:45 Constitutional: Negative for body aches, chills, fever, poor PO intake. cp 20:45 Eyes: Negative for injury, pain, redness, and discharge. cp 20:45 ENT: Positive for sore throat, Negative for drainage from ear(s), ear pain, difficulty swallowing, difficulty handling secretions. 20:45 Respiratory: Positive for cough, Negative for wheezing. 20:45 Abdomen/GI: Negative for abdominal pain, vomiting, diarrhea, constipation. 20:45 Skin: Negative for rash. 20:45 Neuro: Negative for altered mental status, headache, weakness. 20:45 All other systems are negative. Exam: 20:48 Constitutional: The patient appears in no acute distress, alert, awake, cp non-diaphoretic, non-toxic, well developed, well nourished. 20:48 Head/Face: Normocephalic, atraumatic. cp 20:48 Eyes: Periorbital structures: appear normal, Conjunctiva: normal, no exudate, no cp injection, Sclera: no appreciated abnormality, Lids and lashes: appear normal, bilaterally. 20:48 ENT: External ear(s): are unremarkable, Ear canal(s): are normal, clear, TM's: dullness, bilaterally, Nose: is normal, Mouth: Lips: moist, Oral mucosa: moist, Posterior pharynx: Airway: no evidence of obstruction, patent, Tonsils: bilaterally enlarged, with erythema, no exudate, Uvula: midline, swelling, is not appreciated, erythema, that is mild, exudate, is not appreciated, Voice: is normal. 20:48 Neck: ROM/movement: is normal, is supple, without pain, no range of motions limitations, no meningismus, no nuchal rigidity, Lymph nodes: no appreciated lymphadenopathy. 20:48 Chest/axilla: Inspection: normal. 20:48 Cardiovascular: Rate: normal, Rhythm: regular. 20:48 Respiratory: the patient does not display signs of respiratory distress, Respirations: normal, no use of accessory muscles, no retractions, labored breathing, is not present, Breath sounds: are clear throughout, no decreased breath sounds, no stridor, no wheezing. 20:48 Abdomen/GI: Exam negative for discomfort, distension, guarding, Inspection: abdomen appears normal. 20:48 Skin: no rash present. Vital Signs: 20:30 BP 136 / 81; Pulse 81; Resp 17 S; Temp 98.1(O); Pulse Ox 100% on R/A; Weight 90.72 kg lg3 (R); Height 5 ft. 7 in. (R); Pain 5/10; 20:30 Body Mass Index 31.32 (90.72 kg, 170.18 cm) lg3 20:30 Pain Scale: Adult lg3 MDM: 20:41 Patient medically screened. cp 20:50 Differential Diagnosis: Bronchitis Influenza Upper Respiratory Infection Otitis Media cp Pneumonia Other strep throat. 21:50 Data reviewed: vital signs, nurses notes. cp 21:50 ED course: VSS. Patient refused testing. Will discharge to home for continued cp monitoring. Patient may return at any time for reevaluation. Administered Medications: 21:10 Not Given (Patient Refused): GI Cocktail without - (Maalox PO Suspension 30 mb9 ml, Lidocaine Mucous Membrane Liquid 2 % 15 ml) PO once; swish, gargle swallow Disposition Summary: 01/17/23 21:50 Discharge Ordered Location: Home cp Problem: new cp Symptoms: are unchanged cp Condition: Stable cp Diagnosis - Acute pharyngitis, unspecified cp Followup: cp - With: Private Physician - When: 1 - 2 days - Reason: Recheck today's complaints Discharge Instructions: - Discharge Summary Sheet cp - Pharyngitis cp - Sore Throat cp Forms: - Medication Reconciliation Form cp - Thank You Letter cp - Antibiotic Education cp - Prescription Opioid Use cp Addendum: 01/18/2023 23:52 Co-signature as Attending Physician, Randolph Samuel MD I reviewed the patient's care r n provided by the Advanced Practice Provider and agree with the diagnosis and treatment plan. Signatures: Dispatcher [employer] Randolph Brewer MD MD rn Rafael Hernandez PA PA cp Gibson, Lacie RN RN lg3 Maoj Haley RN mb9
[2023-01-18 09:42] VITALS: BP 136/81; TEMP 98.1; O2SAT 100
== END 2023-01-17 23:05 | disposition home or self-care (01) ==
LOC: ER 20:11
DX: J02.9 Acute pharyngitis, unspecified (principal)